=== PATIENT | male | born 1960 | race Caucasian/White ===

== ENCOUNTER 2017-06-03 17:56 | Emergency (ER) | payer MEDICARE ==
[2017-06-03 18:37] VITALS: BP 112/85
--- NOTE | 2017-06-03 18:40 | EDM.PDOC ---
ED HPI GENERAL MEDICAL PROBLEM - General Chief Complaint: Skin Complaint Stated Complaint: BOIL Time Seen by Provider: 06/03/17 18:40 Source of Information: Reports: Patient - History of Present Illness INITIAL COMMENTS - FREE TEXT/NARRATIVE: Patient is here for evaluation for a wound to his left buttock. He states this started approximately 3 days ago. He tried to drain it today and did get some thick red secretions. He states it is painful when he sits down. He has not had fever or chills. Patient is diabetic, has not been taking his medications intentionally. He states his glucose readings have been between 120 and 180. He denies any history of clotting or clotting disorder. He is not immunocompromise. Left Hip Pain Score (Numeric/FACES): 6 - Related Data Allergies Allergy/AdvReac Type Severity Reaction Status Date / Time No Known Allergies Allergy Verified 01/09/15 12:32 Home Meds: Home Meds Cyclobenzaprine [Flexeril] 10 mg PO ASDIRECTED PRN 01/09/15 [History] DULoxetine HCl [Duloxetine HCl] 60 mg PO DAILY 01/09/15 [History] Hydrocodone/Acetaminophen [Lorcet 5-325 mg Tablet] 1 tab PO ASDIRECTED PRN 01/09 [History] Cephalexin [Keflex] 500 mg PO Q6HR #28 cap 06/03/17 [Rx] Cephalexin [Keflex] 500 mg PO Q6HR #30 cap 06/03/17 [Rx] Past Medical History Psychiatric History: Reports: Anxiety, Depression - Past Surgical History Other Musculoskeletal Surgeries/Procedures:: back surgery Social & Family History - Tobacco Use Smoking Status *Q: Current Every Day Smoker Years of Tobacco use: 30 Packs/Tins Daily: 1 - Caffeine Use Caffeine Use: Reports: Coffee, Energy Drinks, Soda, Tea - Recreational Drug Use Recreational Drug Use: No ED ROS GENERAL - Review of Systems Review Of Systems: See Below Constitutional: Denies: Fever, Chills Respiratory: Reports: No Symptoms Cardiovascular: Reports: No Symptoms Skin: Reports: Wound (Left buttock) Neurological: Reports: No Symptoms Psychiatric: Reports: No Symptoms ED EXAM, SKIN/RASH Exam: See Below Exam Limited By: No Limitations General Appearance: Alert, WD/WN, No Apparent Distress Respiratory/Chest: No Respiratory Distress, Lungs Clear, Normal Breath Sounds, Chest Non-Tender Cardiovascular: Regular Rate, Rhythm, No Murmur, No Rub Neurological: Alert, Oriented Psychiatric: Normal Affect, Normal Mood Location, Skin: Other (Abscess to left buttock. Eschar to central area proximally 0.5 cm and draining purulent drainage. Surrounding erythema and warmth, this area is very firm and approximately 10 cm in diameter.) Course - Vital Signs Last Recorded V/S: Last Vital Signs Temp 99.1 F 06/03/17 18:36 Pulse 88 06/03/17 18:36 Resp 20 06/03/17 18:36 BP 112/85 06/03/17 18:36 Pulse Ox 94 L 06/03/17 18:36 - Orders/Labs/Meds Orders: Active Orders 24 hr Category Date Time Status CULTURE WOUND [RM] Stat Lab 06/03/17 19:00 Received Meds: Medications Discontinued Medications Generic Name Dose Route Start Last Admin Trade Name Martin PRN Reason Stop Dose Admin Ceftriaxone Sodium 1 gm 06/03/17 18:52 06/03/17 19:09 Rocephin IM 06/03/17 18:53 1 gm ONETIME ONE Administration Lidocaine HCl Confirm 06/03/17 19:05 06/03/17 19:09 Xylocaine 1% Administered 06/03/17 19:06 10 ml Dose Administration 10 ml .ROUTE .STK-MED ONE - Re-Assessments/Exams Free Text/Narrative Re-Assessment/Exam: Abscess to left buttock. This is draining minimally. Abscess is still quite firm, I do not feel this is mostly fluid-filled but more inflammation. Do not think drainage indicated at this point. Patient received 1 g Rocephin IM and will be started on Keflex by mouth on an outpatient basis. I recommend that he take a probiotic to help with GI side effects. He will apply hot compresses to this frequently to encourage drainage. He will follow-up with PCP on Monday or certainly return to the ER if needed. 06/03/17 19:43 Departure - Departure Time of Disposition: 19:33 Disposition: Home, Self-Care 01 Condition: Good Clinical Impression: Abscess - Discharge Information Prescriptions: Cephalexin [Keflex] 500 mg PO Q6HR #28 cap Cephalexin [Keflex] 500 mg PO Q6HR #30 cap Instructions: Abscess Referrals: Nordeng-Coby,Olivia M, MD [Primary Care Provider] - Forms: ED Department Discharge Additional Instructions: Keep area clean and dry. Apply hot compresses every 1-2 hours to encourage drainage. Take full course of antibiotic, I recommend a probiotic such as Floragen or 2 low-sugar yogurts per day with this as well to help prevent antibiotic- associated diarrhea. Tylenol or ibuprofen as needed for pain. Follow-up with your PCP next week or certainly return to the emergency room if needed. - My Orders Last 24 Hours: My Active Orders 06/03/17 19:00 CULTURE WOUND [RM] Stat - Assessment/Plan Last 24 Hours: My Active Orders 06/03/17 19:00 CULTURE WOUND [RM] Stat
[2017-06-03] MEDS ORDERED: cefTRIAXone 1 GM Vial IM ONE (18:52)
[2017-06-03] MEDS ORDERED: Lidocaine 1% 10 ML MDV ONE (19:05)
== END 2017-06-03 19:49 | disposition home or self-care (01) ==
LOC: JD.ED 17:56
DX: L02.31 Cutaneous abscess of buttock (principal); F17.210 Nicotine dependence, cigarettes, uncomplicated
CPT/HCPCS: 87070; 87077; 87186; 96372; 99283; J0696

== ENCOUNTER 2019-06-03 17:12 | Emergency (ER) | payer MEDICARE ==
[2019-06-03 17:23] VITALS: BP 126/106; PULSE 79
[2019-06-03] MEDS ORDERED: Albuterol/Ipratropium 3.0-0.5 MG/3 ML Neb Soln NEB ONE (17:40)
--- NOTE | 2019-06-03 17:54 | EDM.PDOC ---
ED HPI GENERAL MEDICAL PROBLEM - General Chief Complaint: Respiratory Problem Stated Complaint: CHEST CONGESTION Time Seen by Provider: 06/03/19 17:22 Source of Information: Reports: Patient, RN Notes Reviewed - History of Present Illness INITIAL COMMENTS - FREE TEXT/NARRATIVE: 58 year old male comes in wheezing, coughing. He has been coughing and wheezing more than usual for the last week or so. Cough is occasionally productive of colored phlegm. No fever or chills. Scratchy throat, does not hurt to swallow. - Related Data Allergies Allergy/AdvReac Type Severity Reaction Status Date / Time No Known Allergies Allergy Verified 06/03/19 17:23 Home Meds: Home Meds DULoxetine HCl [Duloxetine HCl] 60 mg PO DAILY 01/09/15 [History] Levofloxacin [Levaquin] 500 mg PO DAILY #10 tablet 04/30/18 [Rx] Lisinopril 5 mg PO DAILY 04/30/18 [History] atorvaSTATin Calcium [Atorvastatin Calcium] 20 mg PO BEDTIME 04/30/18 [History] metFORMIN [Glucophage XR] 500 mg PO BIDMEALS 04/30/18 [History] Past Medical History HEENT History: Reports: Hard of Hearing Cardiovascular History: Reports: High Cholesterol Respiratory History: Reports: COPD Other Respiratory History: 1 ppd smoker (30+ years) Psychiatric History: Reports: Anxiety, Depression Endocrine/Metabolic History: Reports: Diabetes, Type II - Past Surgical History Other Musculoskeletal Surgeries/Procedures:: back surgery Social & Family History - Family History Family Medical History: Noncontributory - Tobacco Use Smoking Status *Q: Current Every Day Smoker Years of Tobacco use: 40 Packs/Tins Daily: 1 - Caffeine Use Caffeine Use: Reports: Coffee, Energy Drinks, Soda, Tea - Living Situation & Occupation Living situation: Reports: Occupation: Employed ED ROS GENERAL - Review of Systems Review Of Systems: See Below Constitutional: Denies: Fever, Chills HEENT: Reports: Sinus Problem (mild john. and drainage), Throat Pain Respiratory: Reports: Shortness of Breath, Wheezing, Cough, Sputum Cardiovascular: Denies: Chest Pain GI/Abdominal: Denies: Nausea, Vomiting Musculoskeletal: Denies: Shoulder Pain, Arm Pain Skin: Reports: No Symptoms. Denies: Rash Neurological: Reports: No Symptoms ED EXAM, GENERAL - Physical Exam Exam: See Below General Appearance: Alert, No Apparent Distress Eye Exam: Bilateral Eye: PERRL Throat/Mouth: Inflammation (mild) Neck: Supple, Other (no JVD) Respiratory/Chest: No Respiratory Distress, Lungs Clear, Normal Breath Sounds, Wheezing. No: Rales, Rhonchi Cardiovascular: Regular Rate, Rhythm GI/Abdominal: Soft, Non-Tender Back Exam: No: CVA Tenderness (L), CVA Tenderness (R) Extremities: No: Pedal Edema, Leg Pain, Redness Skin Exam: Warm, Dry, Normal Color Course - Vital Signs Last Recorded V/S: Last Vital Signs Temp 96.4 F 06/03/19 17:21 Pulse 79 06/03/19 17:21 Resp 16 06/03/19 17:21 BP 126/106 H 06/03/19 17:21 Pulse Ox 96 06/03/19 17:49 - Orders/Labs/Meds Meds: Medications Discontinued Medications Generic Name Dose Route Start Last Admin Trade Name Freq PRN Reason Stop Dose Admin Albuterol/Ipratropium 3 ml 06/03/19 17:40 06/03/19 17:49 Duoneb 3.0-0.5 Mg/3 Ml NEB 06/03/19 17:41 3 ml ONETIME ONE Administration Azithromycin 500 mg 06/03/19 18:41 06/03/19 18:49 Zithromax PO 06/03/19 18:42 500 mg ONETIME ONE Administration Departure - Departure Time of Disposition: 18:43 Disposition: Home, Self-Care 01 Condition: Fair Clinical Impression: Bronchitis, Dyspnea - Discharge Information Instructions: Acute Bronchitis, Adult Referrals: Olivia Paris MD [Primary Care Provider] - Forms: ED Department Discharge Additional Instructions: Z pack antibiotic as prescribed, try stop smoking. Continue rescue inhaler and other meds as prescribed. Vaporizer or steam as needed. Follow up with your regular medical provider if not much better within 5 to 7 days as expected.
[2019-06-03] MEDS ORDERED: Azithromycin 250 MG Tab PO ONE (18:41)
--- NOTE | 2019-06-04 09:24 | CR ---
Chest: Two views of the chest were obtained. Comparison: Prior chest x-ray of 04/30/18. Heart size and mediastinum are normal. Lungs are clear with no acute parenchymal change. Bony structures show nothing acute. Impression: 1. Nothing acute is appreciated on two-view chest x-ray. Diagnostic code #1 This report was dictated in [place] Standard Time
== END 2019-06-03 18:59 | disposition home or self-care (01) ==
LOC: JD.ED 17:12
DX: J40 Bronchitis, not specified as acute or chronic (principal); J44.9 Chronic obstructive pulmonary disease, unspecified; E11.9 Type 2 diabetes mellitus without complications; F32.9 Major depressive disorder, single episode, unspecified; F41.9 Anxiety disorder, unspecified; E78.00 Pure hypercholesterolemia, unspecified; F17.210 Nicotine dependence, cigarettes, uncomplicated; Z79.899 Other long term (current) drug therapy; Z79.84 Long term (current) use of oral hypoglycemic drugs
CPT/HCPCS: 71046; 94640; 99285; A9270; 99283; J7620-GY

== ENCOUNTER 2019-06-17 15:51 | Emergency (ER) | payer MEDICARE, OTHER ==
[2019-06-17 16:39] VITALS: BP 138/93; PULSE 76
[2019-06-17] MEDS ORDERED: Albuterol/Ipratropium 3.0-0.5 MG/3 ML Neb Soln NEB ONE (16:46)
[2019-06-17] MEDS ORDERED: methylPREDNISolone Sodium Succinate 125 MG/2 ML SDV IVPUSH ONE (16:46)
[2019-06-17] MEDS ORDERED: Sodium Chloride 0.9% 10 ML Syringe FLUSH PRN (16:46)
--- NOTE | 2019-06-17 16:51 | EDM.PDOC ---
ED HPI GENERAL MEDICAL PROBLEM - General Chief Complaint: Respiratory Problem Stated Complaint: HOARSENESS NOT BETTER Time Seen by Provider: 06/17/19 16:34 Source of Information: Reports: Patient History Limitations: Reports: No Limitations - History of Present Illness INITIAL COMMENTS - FREE TEXT/NARRATIVE: Patient's unfortunate 58-year-old male presents in respiratory Department today with complaint of cough and wheezing and sore throat. Patient reports symptoms started 4 weeks ago. The patient was seen here on 06/03/2019, at which time he received a nebulizer treatment was placed on Zithromax. Patient ports that he had mild improvement with the nebulized treatment and then he did not get any better and the symptoms have stayed the same or worsen sensory re-presented in the emergency department for evaluation. Patient does report that he gets mild improvement from his rescue inhaler at home ports he has also had an intermittent episodes of chest pain to the left anterior portion of his chest last episode of this was 2 weeks ago - Related Data Allergies Allergy/AdvReac Type Severity Reaction Status Date / Time No Known Allergies Allergy Verified 06/03/19 17:23 Home Meds: Home Meds DULoxetine HCl [Duloxetine HCl] 60 mg PO DAILY 01/09/15 [History] atorvaSTATin Calcium [Atorvastatin Calcium] 20 mg PO BEDTIME 04/30/18 [History] metFORMIN [Glucophage XR] 500 mg PO BIDMEALS 04/30/18 [History] Levofloxacin [Levaquin] 500 mg PO DAILY #7 tablet 06/17/19 [Rx] predniSONE [Prednisone] 50 mg PO DAILY #5 tablet 06/17/19 [Rx] Past Medical History HEENT History: Reports: Hard of Hearing Cardiovascular History: Reports: High Cholesterol Respiratory History: Reports: COPD Other Respiratory History: 1 ppd smoker (30+ years) Psychiatric History: Reports: Anxiety, Depression Endocrine/Metabolic History: Reports: Diabetes, Type II - Past Surgical History Other Musculoskeletal Surgeries/Procedures:: back surgery Social & Family History - Family History Family Medical History: Noncontributory - Tobacco Use Smoking Status *Q: Current Every Day Smoker Years of Tobacco use: 30 Packs/Tins Daily: 1 - Caffeine Use Caffeine Use: Reports: Coffee - Recreational Drug Use Recreational Drug Use: No - Living Situation & Occupation Living situation: Reports: Occupation: Employed ED ROS GENERAL - Review of Systems Review Of Systems: See Below Constitutional: Denies: Fever, Chills HEENT: Reports: Throat Pain Respiratory: Reports: Shortness of Breath, Cough, Sputum Cardiovascular: Reports: Chest Pain GI/Abdominal: Denies: Nausea, Vomiting ED EXAM, GENERAL - Physical Exam Exam: See Below Exam Limited By: No Limitations General Appearance: Alert, WD/WN, Mild Distress Ears: Normal External Exam, Normal Canal, Hearing Grossly Normal, Normal TMs Throat/Mouth: Other (Posterior pharynx moderate erythema or midline) Neck: Normal Inspection, Other (Anterior cervical chain lymphadenopathy 2+) Respiratory/Chest: No Respiratory Distress, Wheezing (Mild scattered end expiratory). No: Respiratory Distress Cardiovascular: Normal Peripheral Pulses, Regular Rate, Rhythm, No Edema, No Gallop, No JVD, No Murmur, No Rub GI/Abdominal: Normal Bowel Sounds, Soft, Non-Tender, No Organomegaly, No Distention, No Abnormal Bruit, No Mass Back Exam: Normal Inspection, Full Range of Motion, NT Extremities: Normal Inspection, Normal Range of Motion, Non-Tender, Normal Capillary Refill, No Pedal Edema Neurological: Alert Skin Exam: Warm, Dry, No Rash EKG INTERPRETATION EKG Date: 06/17/19 Time: 16:55 Rhythm: NSR [place]: Normal P-Wave: Present QRS: Normal ST-T: Normal QT: Normal Course - Vital Signs Last Recorded V/S: Last Vital Signs Temp 97.3 F 06/17/19 16:36 Pulse 76 06/17/19 16:36 Resp 16 06/17/19 16:36 BP 138/93 H 06/17/19 16:36 Pulse Ox 90 L 06/17/19 16:47 - Orders/Labs/Meds Orders: Active Orders 24 hr Category Date Time Status EKG Documentation Completion [RC] ASDIRECTED Care 06/17/19 16:46 Active RT Aerosol Therapy [RC] ASDIRECTED Care 06/17/19 16:47 Active Chest 2V [CR] Stat Exams 06/17/19 16:46 Taken Sodium Chloride 0.9% [Saline Flush] Med 06/17/19 16:46 Active 10 ml FLUSH ASDIRECTED PRN Saline Lock Insert [OM.PC] Stat Oth 06/17/19 16:46 Ordered EKG 12 Lead [EK] Stat Ther 06/17/19 16:45 Ordered Medication Orders Sodium Chloride (Saline Flush) 10 ml FLUSH ASDIRECTED PRN PRN Reason: Keep Vein Open Last Admin: 06/17/19 17:15 Dose: 10 ml Labs: Laboratory Tests 06/17/19 06/17/19 06/17/19 Range/Units 16:50 16:50 17:18 WBC 8.48 (4.23-9.07) K/mm3 RBC 4.49 L (4.63-6.08) M/mm3 Hgb 15.3 (13.7-17.5) gm/dl Hct 44.8 (40.1-51.0) % MCV 99.8 H (79.0-92.2) fl MCH 34.1 H (25.7-32.2) pg MCHC 34.2 (32.2-35.5) g/dl RDW Std Deviation 49.5 H (35.1-43.9) fL Plt Count 181 (163-337) K/mm3 MPV 10.0 (9.4-12.3) fl Neut % (Auto) 56.0 (34.0-67.9) % Lymph % (Auto) 32.7 (21.8-53.1) % [place] % (Auto) 8.5 (5.3-12.2) % Eos % (Auto) 1.9 (0.8-7.0) Baso % (Auto) 0.5 (0.1-1.2) % Neut # (Auto) 4.76 (1.78-5.38) K/mm3 Lymph # (Auto) 2.77 (1.32-3.57) K/mm3 [place] # (Auto) 0.72 (0.30-0.82) K/mm3 Eos # (Auto) 0.16 (0.04-0.54) K/mm3 Baso # (Auto) 0.04 (0.01-0.08) K/mm3 Sodium 142 (136-145) mEq/L Potassium 4.2 (3.5-5.1) mEq/L Chloride 105 (98-107) mEq/L Carbon Dioxide 28 (21-32) mEq/L Anion Gap 13.2 (5-15) BUN 13 (7-18) mg/dL Creatinine 1.1 (0.7-1.3) mg/dL Est Cr Clr Drug Dosing 71.41 mL/min Estimated GFR (MDRD) > 60 (>60) mL/min BUN/Creatinine Ratio 11.8 L (14-18) Glucose 199 H (74-106) mg/dL Calcium 8.9 (8.5-10.1) mg/dL Total Bilirubin 0.4 (0.2-1.0) mg/dL AST 20 (15-37) U/L ALT 47 (16-63) U/L Alkaline Phosphatase 86 (46-116) U/L Troponin I < 0.017 (0.00-0.056) ng/mL Total Protein 7.2 (6.4-8.2) g/dl Albumin 3.6 (3.4-5.0) g/dl Globulin 3.6 gm/dL Albumin/Globulin Ratio 1.0 (1-2) Urine Color Dark yellow (Yellow) Urine Appearance Cloudy H (Clear) Urine pH 7.0 (5.0-8.0) Ur Specific [place] > or = 1.030 (1.005-1.030) Urine Protein Negative (Negative) Urine Glucose (UA) 2+ H (Negative) Urine Ketones Negative (Negative) Urine Occult Blood Negative (Negative) Urine Nitrite Negative (Negative) Urine Bilirubin Negative (Negative) Urine Urobilinogen 0.2 (0.2-1.0) Ur Leukocyte Esterase Negative (Negative) Meds: Medications Generic Name Dose Route Start Last Admin Trade Name Freq PRN Reason Stop Dose Admin Sodium Chloride 10 ml 06/17/19 16:46 06/17/19 17:15 Saline Flush FLUSH 10 ml ASDIRECTED PRN Administration Keep Vein Open Discontinued Medications Generic Name Dose Route Start Last Admin Trade Name Freq PRN Reason Stop Dose Admin Albuterol/Ipratropium 6 ml 06/17/19 16:46 06/17/19 17:27 Duoneb 3.0-0.5 Mg/3 Ml NEB 06/17/19 16:47 6 ml ONETIME ONE Administration Methylprednisolone Sodium Succinate 125 mg 06/17/19 16:46 06/17/19 17:11 Solu-Medrol IVPUSH 06/17/19 16:47 125 mg ONETIME ONE Administration - Re-Assessments/Exams Free Text/Narrative Re-Assessment/Exam: 06/17/19 18:23 Chest x-ray interpreted by me NAD Free Text/Narrative Re-Assessment/Exam: 06/17/19 18:27 he reports symptoms have improved SPO2 95% on room air will discharge to home Departure - Departure Time of Disposition: 18:26 Disposition: Home, Self-Care 01 Clinical Impression: COPD exacerbation - Discharge Information Prescriptions: Levofloxacin [Levaquin] 500 mg PO DAILY #7 tablet predniSONE [Prednisone] 50 mg PO DAILY #5 tablet Instructions: Chronic Obstructive Pulmonary Disease Exacerbation Referrals: Olivia Paris MD [Primary Care Provider] - Forms: ED Department Discharge Additional Instructions: Home, rest, use your inhaler every 4 hours for 24 hours while awake then as needed, return as needed for worsening condition Sepsis Event Note - Evaluation Sepsis Screening Result: No Definite Risk - Focused Exam Vital Signs: Vital Signs Temp Pulse Resp BP Pulse Ox Pulse Ox 06/17/19 16:47 90 L 06/17/19 16:36 97.3 F 76 16 138/93 H 92 L Date Exam was Performed: 06/17/19 Time Exam was Performed: 18:23 - My Orders Last 24 Hours: My Active Orders 06/17/19 16:45 EKG 12 Lead [EK] Stat 06/17/19 16:46 EKG Documentation Completion [RC] ASDIRECTED Chest 2V [CR] Stat Sodium Chloride 0.9% [Saline Flush] 10 ml FLUSH ASDIRECTED PRN Saline Lock Insert [OM.PC] Stat 06/17/19 16:47 RT Aerosol Therapy [RC] ASDIRECTED - Assessment/Plan Last 24 Hours: My Active Orders 06/17/19 16:45 EKG 12 Lead [EK] Stat 06/17/19 16:46 EKG Documentation Completion [RC] ASDIRECTED Chest 2V [CR] Stat Sodium Chloride 0.9% [Saline Flush] 10 ml FLUSH ASDIRECTED PRN Saline Lock Insert [OM.PC] Stat 06/17/19 16:47 RT Aerosol Therapy [RC] ASDIRECTED
--- NOTE | 2019-06-18 07:24 | CR ---
Chest: Two views of the chest were obtained. Comparison: Prior chest x-ray of 06/03/19. Heart size and mediastinum are normal. Lungs are clear with no acute parenchymal change. Bony structures appear within normal limits for the patient's age. Impression: 1. Nothing acute is appreciated on two-view chest x-ray. Diagnostic code #1 This report was dictated in [place] Standard Time
== END 2019-06-17 18:37 | disposition home or self-care (01) ==
LOC: JD.ED 15:51
DX: J44.1 Chronic obstructive pulmonary disease with (acute) exacerbation (principal); I10 Essential (primary) hypertension; E11.9 Type 2 diabetes mellitus without complications; E78.00 Pure hypercholesterolemia, unspecified; F17.210 Nicotine dependence, cigarettes, uncomplicated; Z79.899 Other long term (current) drug therapy; Z79.84 Long term (current) use of oral hypoglycemic drugs
CPT/HCPCS: 36415; 71046; 80053; 81003; 84484; 85025; 87804; 93005; 94640; 96374; 99285; J2930; 93010; 99283; J7620-GY

== ENCOUNTER 2021-03-28 11:34 | Inpatient (IN) | payer MEDICARE, MEDICAID ==
[2021-03-28] MEDS ORDERED: Sodium Chloride 0.9% 10 ML Syringe FLUSH PRN (12:11)
[2021-03-28] MEDS ORDERED: HYDROmorphone 1 MG/ML Syringe IVPUSH ONE (12:16)
[2021-03-28] MEDS: Lactated Ringers 1,000 ML IV SCH ×2 (12:29→21:57)
[2021-03-28] MEDS ORDERED: Iopamidol 612 MG/ML 50 ML SDV IVPUSH ONE (12:45)
[2021-03-28] MEDS ORDERED: Sodium Chloride 0.9% 10 ML Syringe FLUSH ONE (12:45)
[2021-03-28] MEDS ORDERED: Iopamidol 612 MG/ML 100 ML Bottle IVPUSH ONE (12:45)
--- NOTE | 2021-03-28 13:57 | CT ---
CT chest Technique: Multiple axial sections were obtained from above the lung apices inferiorly through the lung bases. Intravenous contrast was utilized. Reconstructed coronal and sagittal images were obtained. Comparison: No prior chest CT is available, prior chest x-ray of 06/17/19 is available. Findings: Thoracic aorta shows mild atherosclerotic calcification. Ascending aorta is slightly aneurysmal with AP dimension of 4.2 cm. Descending aorta at the same level measures approximately 3.0 cm. Minimal atherosclerotic calcification is seen within the coronary arteries. Several lymph nodes are seen within the mediastinum which are felt to be within normal limits. No axillary adenopathy is seen. No pericardial thickening is seen. Lung window settings were reviewed. Nodule is identified within the right lung base measuring 9 mm. Slight dependent atelectasis is noted posteriorly. No acute parenchymal change is otherwise seen. Bone window settings were reviewed which show no acute osseous finding. Degenerative change is seen within the visualized lower cervical spine. Impression: 1. 9 mm nodule within the right lung base. Recommend follow-up noncontrast chest CT study in 6 months. This would occur in August or October 2021. 2. Slight aneurysmal dilatation of the ascending aorta at 4.2 cm. Descending aorta at this level measures 3.0 cm. 3. Other incidental findings as noted above. Diagnostic code #3 CT abdomen and pelvis Technique: Multiple axial sections were obtained from above the dome of the diaphragm inferiorly through the pubic symphysis. Intravenous contrast was utilized. No oral contrast has been given. Reconstructed coronal and sagittal images were obtained. Delayed images were obtained through the bladder. Comparison: No prior abdominal imaging is available. Findings: Liver shows diffuse fatty infiltration. Gallbladder contains no calcified gallstones. Spleen size is normal. Pancreas appears within normal limits. Adrenal glands show no nodule. Kidneys show symmetric contrast enhancement. Two small cysts are noted within the right kidney measuring 1.2 cm. Two left-sided cysts are noted within the left kidney with largest measuring 4.1 cm. Delayed images show contrast within the distal ureters and within the bladder. Abdominal aorta shows mild distal ectasia with AP dimension of 2.3 cm. Slight atherosclerotic calcification is seen within the abdominal aorta as well as within the iliac vessels. No retroperitoneal adenopathy or mesenteric abnormalities are seen. No pelvic mass or adenopathy is seen. No free fluid or inflammatory change is seen. Appendix is not definitely visualized. Bone window settings were obtained which show scoliosis within the lumbar spine. Disc space narrowing is seen at L3-4 and L4-5 with vacuum phenomena. Acute fracture appears to be present within the left hip which is intertrochanteric and shows mild impaction. Impression: 1. Left hip fracture showing mild impaction which is intertrochanteric in location. 2. Other findings as noted above which are felt to be incidental. Diagnostic code #5
--- NOTE | 2021-03-28 14:06 | CT ---
CT lumbar spine Technique: Multiple axial sections were obtained from above the T11-12 disc through the L5-S1 disc. Reconstructed coronal and sagittal images were obtained. Comparison: Prior lumbar spine plain film study of 09/05/11. Findings: T11-12: Posterior disc is maintained. No central canal stenosis or neural foraminal stenosis is seen. T12-L1: Posterior disc is maintained. No central canal stenosis or neural foraminal stenosis is seen. L1-2: Slight circumferential disc bulge is seen. Mild degenerative change is noted within the apophyseal joint. No central canal stenosis is seen. Disc bulging is seen into the right neural foramen causing mild right-sided neural foraminal stenosis. Left neural foramen is patent. L2-3: Disc height is minimally narrowed. Circumferential disc bulge is seen. Mild central canal stenosis is noted. Minimal degenerative apophyseal change is seen. Disc bulging is noted into both inferior neural foramina which cause bilateral neural foraminal stenosis. L3-4: Severe disc space narrowing is noted with vacuum disc phenomena. Circumferential disc bulge is seen. Mild central canal stenosis is seen. Disc bulging is noted into both neural foramina causing severe left-sided neural foraminal stenosis and mild right-sided neural foraminal stenosis. L4-5: Severe disc space narrowing is noted with circumferential disc bulge. Moderate degenerative apophyseal change is noted with spurring seen which extends into the central canal. Moderate central canal stenosis is noted. Degenerative spurring and disc bulging is noted into both inferior neural foramina causing bilateral neural foraminal stenosis. L5-S1: Fairly severe degenerative apophyseal change is noted. Slight posterior disc space narrowing is noted. Posterior disc shows a physiological disc bulge. No central canal stenosis or discrete neural foraminal stenosis is seen. No acute fracture is seen. No abnormal subluxation is noted. Impression: 1. Prominent degenerative change as noted above. 2. No acute fracture or subluxation is seen. 3. MRI study could be considered to further evaluate the degenerative change as noted above. Diagnostic code #3
--- NOTE | 2021-03-28 14:07 | CR ---
Left tibia and fibula: AP and lateral views of the left tibia and fibula were obtained. Comparison: No prior tibia or fibula exam is available. Moderate joint space narrowing is seen within the medial left knee. Ankle joint appears within normal limits as seen. No acute fracture or other abnormality is appreciated. Impression: 1. Degenerative change within the left knee. 2. Nothing acute is appreciated on left tibia and fibula study. Diagnostic code #2
--- NOTE | 2021-03-28 14:07 | CR ---
Left femur: AP and lateral views of the left femur were obtained. Comparison: No prior left femur study, prior CT abdomen and pelvis exam performed on the same day. Comminuted intertrochanteric fracture is seen within the left hip with slight impaction. Moderate disc space narrowing is noted within the medial compartment of the left knee. No additional femur abnormality is appreciated. Impression: 1. Comminuted intertrochanteric fracture with slight impaction. 2. Joint space narrowing seen within the medial joint compartment. Diagnostic code #3
[2021-03-28] MEDS ORDERED: HYDROmorphone 0.5 MG/0.5 ML Syringe IVPUSH ONE (14:10)
--- NOTE | 2021-03-28 14:33 | EDM.PDOC ---
ED HPI GENERAL MEDICAL PROBLEM - General Chief Complaint: Lower Extremity Injury/Pain Stated Complaint: LEG INJURY Time Seen by Provider: 03/28/21 11:56 Source of Information: Reports: Patient History Limitations: Reports: No Limitations - History of Present Illness INITIAL COMMENTS - FREE TEXT/NARRATIVE: The patient presents after a fall from a grain bin. He thinks he fell over 5 feet and landed on his left hip. He did not hit his head or hurt his neck. He could not get up because of the pain. He has pain to the left low back, abdomen, left hip and left lower leg. He takes an aspirin per day. He has high cholesterol and diabetes. He does smoke. Onset: Sudden Duration: Minutes: Location: Reports: Back, Lower Extremity, Left (hip and low leg) Quality: Reports: Sharp Severity: Severe Improves with: Reports: Immobilization Worsens with: Reports: Movement Context: Reports: Trauma Associated Symptoms: Reports: No Other Symptoms Left Leg Pain Score (Numeric/FACES): 10 - Related Data Allergies Allergy/AdvReac Type Severity Reaction Status Date / Time No Known Allergies Allergy Verified 03/28/21 11:55 Home Meds: Home Meds DULoxetine HCl [Duloxetine HCl] 60 mg PO DAILY 01/09/15 [History] atorvaSTATin Calcium [Atorvastatin Calcium] 20 mg PO BEDTIME 04/30/18 [History] metFORMIN [Glucophage XR] 500 mg PO BIDMEALS 04/30/18 [History] predniSONE [Prednisone] 50 mg PO DAILY #5 tablet 06/17/19 [Rx] Aspirin 32 mg PO DAILY 03/28/21 [History] Past Medical History HEENT History: Reports: Hard of Hearing, Other (See Below) Other HEENT History: sinus surgery Cardiovascular History: Reports: High Cholesterol Respiratory History: Reports: COPD Other Respiratory History: 1 ppd smoker (30+ years) Psychiatric History: Reports: Anxiety, Depression Endocrine/Metabolic History: Reports: Diabetes, Type II - Past Surgical History GI Surgical History: Reports: Appendectomy Other Musculoskeletal Surgeries/Procedures:: back surgery Social & Family History - Family History Family Medical History: No Pertinent Family History - Tobacco Use Tobacco Use Status *Q: Current Every Day Tobacco User Years of Tobacco use: 20 Packs/Tins Daily: 1 - Caffeine Use Caffeine Use: Reports: Coffee, Soda - Recreational Drug Use Recreational Drug Use: No - Living Situation & Occupation Living situation: Reports: Occupation: Employed Review of Systems - Review of Systems Review Of Systems: See Below Constitutional: Reports: No Symptoms Eyes: Reports: No Symptoms Ears: Reports: No Symptoms Nose: Reports: No Symptoms Mouth/Throat: Reports: No Symptoms Respiratory: Reports: No Symptoms Cardiovascular: Reports: No Symptoms GI/Abdominal: Reports: No Symptoms Genitourinary: Reports: No Symptoms Musculoskeletal: Reports: Other (Left hip and left low leg) Neurological: Denies: Headache ED EXAM, GENERAL - Physical Exam Exam: See Below Exam Limited By: No Limitations General Appearance: Alert, No Apparent Distress Ears: Normal External Exam Nose: Normal Inspection Head: Atraumatic, Normocephalic Neck: Normal Inspection Respiratory/Chest: No Respiratory Distress, Lungs Clear, Normal Breath Sounds Cardiovascular: Regular Rate, Rhythm, No Edema, No Murmur GI/Abdominal: Soft, No Organomegaly, No Mass, Tender (Mild lower abdominal tenderness) Back Exam: Other (pain upon palpation to the left lower back and mid back) Extremities: Other (Pain upon palpation to the left hip and left ankle and lower leg) Neurological: Alert, Oriented, No Motor/Sensory Deficits Course - Vital Signs Last Recorded V/S: Last Vital Signs Temp 98.8 F 03/28/21 11:54 Pulse 86 03/28/21 11:54 Resp 18 03/28/21 11:54 BP 144/84 H 03/28/21 11:54 Pulse Ox 96 03/28/21 11:54 - Orders/Labs/Meds Orders: Active Orders 24 hr Category Date Time Status Cardiac Monitoring [RC] . DIRECTED Care 03/28/21 12:11 Active EKG Documentation Completion [RC] ASDIRECTED Care 03/28/21 16:06 Ordered Peripheral IV Care [RC] . DIRECTED Care 03/28/21 12:12 Active Lactated Ringers [Ringers, Lactated] 1,000 ml Med 03/28/21 12:15 Active IV ASDIRECTED Sodium Chloride 0.9% [Saline Flush] Med 03/28/21 12:11 Active 10 ml FLUSH ASDIRECTED PRN Peripheral IV Insertion Adult [OM.PC] Stat Oth 03/28/21 12:11 Ordered EKG 12 Lead [EK] Stat Ther 03/28/21 16:05 Ordered Medication Orders Lactated Ringer's (Ringers, Lactated) 1,000 mls @ 125 mls/hr IV ASDIRECTED [place] Last Admin: 03/28/21 12:29 Dose: 125 mls/hr Documented by: KAILA Sodium Chloride (Sodium Chloride 0.9% 10 Ml Syringe) 10 ml FLUSH ASDIRECTED PRN PRN Reason: Keep Vein Open Last Admin: 03/28/21 12:30 Dose: 10 ml Documented by: KAILA Labs: Laboratory Tests 03/28/21 03/28/21 03/28/21 Range/Units 12:00 12:00 12:01 WBC 20.88 H (4.23-9.07) K/mm3 RBC 4.44 L (4.63-6.08) M/mm3 Hgb 14.9 (13.7-17.5) gm/dl Hct 44.6 (40.1-51.0) % MCV 100.5 H (79.0-92.2) fl MCH 33.6 H (25.7-32.2) pg MCHC 33.4 (32.2-35.5) g/dl RDW Std Deviation 50.1 H (35.1-43.9) fL Plt Count 208 (163-337) K/mm3 MPV 10.1 (9.4-12.3) fl Neut % (Auto) 87.2 H (34.0-67.9) % Lymph % (Auto) 7.6 L (21.8-53.1) % [place] % (Auto) 4.7 L (5.3-12.2) % Eos % (Auto) 0.2 L (0.8-7.0) Baso % (Auto) 0.1 (0.1-1.2) % Neut # (Auto) 18.18 H (1.78-5.38) K/mm3 Lymph # (Auto) 1.59 (1.32-3.57) K/mm3 [place] # (Auto) 0.98 H (0.30-0.82) K/mm3 Eos # (Auto) 0.05 (0.04-0.54) K/mm3 Baso # (Auto) 0.03 (0.01-0.08) K/mm3 Sodium 139 (136-145) mEq/L Potassium 4.5 (3.5-5.1) mEq/L Chloride 104 (98-107) mEq/L Carbon Dioxide 25 (21-32) mEq/L Anion Gap 14.5 (5-15) BUN 17 (7-18) mg/dL Creatinine 1.2 (0.7-1.3) mg/dL Est Cr Clr Drug Dosing 63.83 mL/min Estimated GFR (MDRD) > 60 (>60) mL/min BUN/Creatinine Ratio 14.2 (14-18) Glucose 258 H (70-99) mg/dL Calcium 8.3 L (8.5-10.1) mg/dL Total Bilirubin 0.5 (0.2-1.0) mg/dL AST 42 H (15-37) U/L ALT 54 (16-63) U/L Alkaline Phosphatase 90 (46-116) U/L Total Protein 6.9 (6.4-8.2) g/dl Albumin 3.6 (3.4-5.0) g/dl Globulin 3.3 gm/dL Albumin/Globulin Ratio 1.1 (1-2) Amylase 39 (25-115) U/L SARS-CoV-2 RNA (MOUNIKA) Negative (NEGATIVE) Meds: Medications Generic Name Dose Route Start Last Admin Trade Name Martin PRN Reason Stop Dose Admin Lactated Ringer's 1,000 mls @ 125 mls/hr 03/28/21 12:15 03/28/21 12:29 Ringers, Lactated IV 125 mls/hr ASDIRECTED [place] Administration Sodium Chloride 10 ml 03/28/21 12:11 03/28/21 12:30 Sodium Chloride 0.9% 10 Ml Syringe FLUSH 10 ml ASDIRECTED PRN Administration Keep Vein Open Discontinued Medications Generic Name Dose Route Start Last Admin Trade Name Freq PRN Reason Stop Dose Admin Fentanyl 50 mcg 03/28/21 15:12 03/28/21 15:22 Fentanyl 100 Mcg/2 Ml Sdv IVPUSH 03/28/21 15:13 50 mcg ONETIME ONE Administration Hydromorphone HCl 1 mg 03/28/21 12:16 03/28/21 12:29 Hydromorphone 1 Mg/Ml Syringe IVPUSH 03/28/21 12:17 1 mg ONETIME ONE Administration Hydromorphone HCl 0.5 mg 03/28/21 14:10 03/28/21 14:00 Hydromorphone 0.5 Mg/0.5 Ml Syringe IVPUSH 03/28/21 14:11 0.5 mg ONETIME ONE Administration Iopamidol 100 ml 03/28/21 12:45 03/28/21 13:36 Iopamidol 612 Mg/Ml 100 Ml Bottle IVPUSH 03/28/21 12:46 100 ml ONETIME ONE Administration Iopamidol 50 ml 03/28/21 12:45 03/28/21 13:36 Iopamidol 612 Mg/Ml 50 Ml Sdv IVPUSH 03/28/21 12:46 25 ml ONETIME ONE Administration Sodium Chloride 10 ml 03/28/21 12:45 03/28/21 13:36 Sodium Chloride 0.9% 10 Ml Syringe FLUSH 03/28/21 12:46 10 ml ONETIME ONE Administration - Re-Assessments/Exams Free Text/Narrative Re-Assessment/Exam: 03/28/21 15:34 A trauma alert was called. I ordered an IV LR at 125mL/hr, dilaudid 1mg IV, CT of his chest, lumbar spine, abdomen and pelvis, labs and an x-ray of his left hip and left Tib/fib. 03/28/21 15:[address] of his lumbar spine shows prominent degenerative change. No acute fracture or subluxation is seen. MRI study could be considered to further evaluate the degenerative change. The CT of his chest shows 9mm nodule within the right lung base. Recommend follow-up noncontrast chest CT study in 6 months. This would occur in August or October. Slight aneurysmal dilatation of the ascending aorta at 4.2cm. Descending aorta at this level measures 3cm. Other incidental findings. The CT of his pelvis shows left hip fracture showing mild impaction which is intertrochanteric in location. Other findings felt to be incidental. The x-ray of his Tib/fib shows degenerative change within the left knee. Nothing acute is appreciated on left tibia and fibula study. The x- ray of his left femur shows a comminuted intertrochanteric fracture with slight impaction. Joint space narrowing seen within the medial joint compartment. 03/28/21 16:[address] Herrera and he asked if the hospitalist service would admit him and he would fix the hip tomorrow. I talked with Dr Pires and he agreed to the admission. Departure - Departure Time of Disposition: 16:15 Disposition: Admitted As Inpatient 64 Clinical Impression: Ascending aortic aneurysm, Pulmonary nodule Fall Qualifiers: Encounter type: initial encounter Qualified Code(s): W19.XXXA - Unspecified fall, initial encounter Hip fracture, left Qualifiers: Encounter type: initial encounter Fracture type: closed Qualified Code(s): S72.002A - Fracture of unspecified part of neck of left femur, initial encounter for closed fracture - Discharge Information Referrals: PCP,None [Primary Care Provider] - Forms: ED Department Discharge Sepsis Event Note (ED) - Focused Exam Vital Signs: Vital Signs Temp Pulse Resp BP Pulse Ox 03/28/21 11:54 98.8 F 86 18 144/84 H 96 - My Orders Last 24 Hours: My Active Orders 03/28/21 12:11 Cardiac Monitoring [RC] . DIRECTED Sodium Chloride 0.9% [Saline Flush] 10 ml FLUSH ASDIRECTED PRN Peripheral IV Insertion Adult [OM.PC] Stat 03/28/21 12:12 Peripheral IV Care [RC] . DIRECTED 03/28/21 12:15 Lactated Ringers [Ringers, Lactated] 1,000 ml IV ASDIRECTED 03/28/21 16:05 EKG 12 Lead [EK] Stat 03/28/21 16:06 EKG Documentation Completion [RC] ASDIRECTED - Assessment/Plan Last 24 Hours: My Active Orders 03/28/21 12:11 Cardiac Monitoring [RC] . DIRECTED Sodium Chloride 0.9% [Saline Flush] 10 ml FLUSH ASDIRECTED PRN Peripheral IV Insertion Adult [OM.PC] Stat 03/28/21 12:12 Peripheral IV Care [RC] . DIRECTED 03/28/21 12:15 Lactated Ringers [Ringers, Lactated] 1,000 ml IV ASDIRECTED 03/28/21 16:05 EKG 12 Lead [EK] Stat 03/28/21 16:06 EKG Documentation Completion [RC] ASDIRECTED
[2021-03-28] MEDS ORDERED: fentaNYL 100 MCG/2 ML SDV IVPUSH ONE (15:12)
--- NOTE | 2021-03-28 16:17 | PCM.HP.2 ---
H&P History of Present Illness - General Date of Service: 03/28/21 Admit Problem/Dx: Left-sided intertrochanteric hip fracture secondary to mechanical fall Source of Information: Patient History Limitations: Reports: No Limitations - History of Present Illness Initial Comments - Free Text/Narative: The patient is a 60-year-old gentleman who had presented to the emergency department after he had sustained a fall from a grain bin. The patient had fallen 5 feet and landed on his left hip. The patient reportedly did not have injury to his head or neck. The patient said that he was unable to get up after the fall. He is reported severe pain in the left hip and left lower leg. The patient has several comorbidities to include medication for diabetes mellitus type 2, hypertension, dyslipidemia and depression with anxiety. The patient has denied any dizziness or lightheadedness. He said it was a mechanical fall. The patient uses tobacco and would like to have a nicotine patch. The patient lives by himself. Onset of Symptoms: Reports: Sudden Duration of Symptoms: Reports: Hour(s): Location: Reports: Lower Extremity, Left Quality: Reports: Sharp, Stabbing Severity: Moderate Improves with: Reports: Immobilization, Medication Worsens with: Reports: Movement Context: Reports: Trauma Associated Symptoms: Reports: No Other Symptoms Left Leg Pain Score (Numeric/FACES): 10 - Related Data Allergies/Adverse Reactions: Allergies Allergy/AdvReac Type Severity Reaction Status Date / Time No Known Allergies Allergy Verified 03/28/21 11:55 Home Medications: Home Meds DULoxetine HCl [Duloxetine HCl] 60 mg PO DAILY 01/09/15 [History] atorvaSTATin Calcium [Atorvastatin Calcium] 20 mg PO BEDTIME 04/30/18 [History] metFORMIN [Glucophage XR] 500 mg PO BIDMEALS 04/30/18 [History] predniSONE [Prednisone] 50 mg PO DAILY #5 tablet 06/17/19 [Rx] Aspirin 32 mg PO DAILY 03/28/21 [History] Past Medical History HEENT History: Reports: Hard of Hearing, Other (See Below) Other HEENT History: sinus surgery Cardiovascular History: Reports: High Cholesterol Respiratory History: Reports: COPD Other Respiratory History: 1 ppd smoker (30+ years) Gastrointestinal History: Reports: None Genitourinary History: Reports: None Musculoskeletal History: Reports: None Neurological History: Reports: None Psychiatric History: Reports: Anxiety, Depression Endocrine/Metabolic History: Reports: Diabetes, Type II Hematologic History: Reports: None Immunologic History: Reports: None - Past Surgical History GI Surgical History: Reports: Appendectomy Other Musculoskeletal Surgeries/Procedures:: back surgery Social & Family History - Family History Family Medical History: No Pertinent Family History - Tobacco Use Tobacco Use Status *Q: Current Every Day Tobacco User Years of Tobacco use: 20 Packs/Tins Daily: 1 - Caffeine Use Caffeine Use: Reports: Coffee, Soda - Recreational Drug Use Recreational Drug Use: No - Living Situation & Occupation Living situation: Reports: Occupation: Employed H&P Review of Systems - Review of Systems: Review Of Systems: See Below General: Reports: No Symptoms HEENT: Reports: Hearing Changes Pulmonary: Reports: Cough Cardiovascular: Reports: No Symptoms Gastrointestinal: Reports: No Symptoms Genitourinary: Reports: No Symptoms Musculoskeletal: Reports: Leg Pain Skin: Reports: No Symptoms Psychiatric: Reports: No Symptoms Neurological: Reports: No Symptoms Hematologic/Lymphatic: Reports: No Symptoms Immunologic: Reports: No Symptoms Exam - Exam Exam: See Below - Vital Signs Vital Signs: Last Vital Signs Temp 37.1 C 03/28/21 11:54 Pulse 86 03/28/21 11:54 Resp 18 03/28/21 11:54 BP 144/84 H 03/28/21 11:54 Pulse Ox 96 03/28/21 11:54 Weight: 111.13 kg - Exam Quality Assessment: Supplemental Oxygen, DVT Prophylaxis General: Alert, Oriented, Cooperative, Moderate Distress HEENT: Conjunctiva Clear, EACs Clear, EOMI, Hearing Intact, Pupils Equal, PERRLA. No: Mucosa Moist & [place] (Dry, edentulous) Neck: Supple, Trachea Midline Lungs: Normal Respiratory Effort, Crackles, Wheezing (Widespread crackles and wheezing.) Cardiovascular: Regular Rate, Regular Rhythm, Normal S1, Normal S2 GI/Abdominal Exam: Normal Bowel Sounds, Soft, Non-Tender, No Distention, Other (Obese) (Male) Exam: Deferred Rectal (Males) Exam: Deferred Back Exam: Normal Inspection, Full Range of Motion Extremities: No Pedal Edema, Normal Capillary Refill. No: Normal Inspection (Left lower extremity foreshortened and internally rotated), Normal Range of Motion Skin: Warm, Dry, Intact Neurological: Cranial Nerves Intact, Strength Equal Bilateral, Normal Speech, Normal Tone Neuro Extensive - Mental Status: Alert, Oriented x3 Psychiatric: Alert, Normal Affect - Patient Data Lab Results Last 24 hrs: Laboratory Results - last 24 hr 03/28/21 03/28/21 03/28/21 Range/Units 12:00 12:00 12:01 WBC 20.88 H (4.23-9.07) K/mm3 RBC 4.44 L (4.63-6.08) M/mm3 Hgb 14.9 (13.7-17.5) gm/dl Hct 44.6 (40.1-51.0) % MCV 100.5 H (79.0-92.2) fl MCH 33.6 H (25.7-32.2) pg MCHC 33.4 (32.2-35.5) g/dl RDW Std Deviation 50.1 H (35.1-43.9) fL Plt Count 208 (163-337) K/mm3 MPV 10.1 (9.4-12.3) fl Neut % (Auto) 87.2 H (34.0-67.9) % Lymph % (Auto) 7.6 L (21.8-53.1) % [place] % (Auto) 4.7 L (5.3-12.2) % Eos % (Auto) 0.2 L (0.8-7.0) Baso % (Auto) 0.1 (0.1-1.2) % Neut # (Auto) 18.18 H (1.78-5.38) K/mm3 Lymph # (Auto) 1.59 (1.32-3.57) K/mm3 [place] # (Auto) 0.98 H (0.30-0.82) K/mm3 Eos # (Auto) 0.05 (0.04-0.54) K/mm3 Baso # (Auto) 0.03 (0.01-0.08) K/mm3 Sodium 139 (136-145) mEq/L Potassium 4.5 (3.5-5.1) mEq/L Chloride 104 (98-107) mEq/L Carbon Dioxide 25 (21-32) mEq/L Anion Gap 14.5 (5-15) BUN 17 (7-18) mg/dL Creatinine 1.2 (0.7-1.3) mg/dL Est Cr Clr Drug Dosing 63.83 mL/min Estimated GFR (MDRD) > 60 (>60) mL/min BUN/Creatinine Ratio 14.2 (14-18) Glucose 258 H (70-99) mg/dL Calcium 8.3 L (8.5-10.1) mg/dL Total Bilirubin 0.5 (0.2-1.0) mg/dL AST 42 H (15-37) U/L ALT 54 (16-63) U/L Alkaline Phosphatase 90 (46-116) U/L Total Protein 6.9 (6.4-8.2) g/dl Albumin 3.6 (3.4-5.0) g/dl Globulin 3.3 gm/dL Albumin/Globulin Ratio 1.1 (1-2) Amylase 39 (25-115) U/L SARS-CoV-2 RNA (MOUNIKA) Negative (NEGATIVE) Result Diagrams: 03/28/21 12:00 03/28/21 12:00 Sepsis Event Note - Focused Exam Vital Signs: Vital Signs Temp Pulse Resp BP Pulse Ox 03/28/21 11:54 37.1 C 86 18 144/84 H 96 - Problem List (1) Closed intertrochanteric fracture of left hip SNOMED Code(s): 85931441, 97602234153090765 ICD Code: S72.142A - DISPLACED INTERTROCHANTERIC FRACTURE OF LEFT FEMUR, INIT Status: Acute Current Visit: Yes Qualifiers: Encounter type: initial encounter Fracture alignment: displaced Qualified Code(s): S72.142A - Displaced intertrochanteric fracture of left femur, initial encounter for closed fracture (2) Thoracic ascending aortic aneurysm Status: Chronic Priority: Medium Current Visit: Yes (3) COPD (chronic obstructive pulmonary disease) SNOMED Code(s): 58585131 ICD Code: J44.9 - CHRONIC OBSTRUCTIVE PULMONARY DISEASE, UNSPECIFIED Status: Chronic Priority: Medium Current Visit: Yes Qualifiers: COPD type: chronic bronchitis Chronic bronchitis type: unspecified Qualified Code(s): J42 - Unspecified chronic bronchitis (4) Dyslipidemia SNOMED Code(s): 973756430 ICD Code: E78.5 - HYPERLIPIDEMIA, UNSPECIFIED Status: Chronic Priority: High Current Visit: Yes (5) Hypertension SNOMED Code(s): 63953224 ICD Code: I10 - ESSENTIAL (PRIMARY) HYPERTENSION Status: Chronic Priority: High Current Visit: Yes Qualifiers: Hypertension type: primary hypertension Qualified Code(s): I10 - Essential (primary) hypertension (6) Diabetes mellitus type 2 in obese SNOMED Code(s): 11852130 ICD Code: E11.69 - TYPE 2 DIABETES MELLITUS WITH OTHER SPECIFIED COMPLICATION; E66.9 - OBESITY, UNSPECIFIED Status: Chronic Priority: High Current Visit: Yes (7) Tobacco dependency SNOMED Code(s): 00698665 ICD Code: F17.200 - NICOTINE DEPENDENCE, UNSPECIFIED, UNCOMPLICATED Status: Chronic Priority: High Current Visit: Yes Problem List Initiated/Reviewed/Updated: Yes Orders Last 24hrs: Active Orders 24 hr Category Date Time Status Cardiac Monitoring [RC] . DIRECTED Care 03/28/21 12:11 Active EKG Documentation Completion [RC] ASDIRECTED Care 03/28/21 16:06 Active Peripheral IV Care [RC] . DIRECTED Care 03/28/21 12:12 Active Lactated Ringers [Ringers, Lactated] 1,000 ml Med 03/28/21 12:15 Active IV ASDIRECTED Sodium Chloride 0.9% [Saline Flush] Med 03/28/21 12:11 Active 10 ml FLUSH ASDIRECTED PRN Peripheral IV Insertion Adult [OM.PC] Stat Oth 03/28/21 12:11 Ordered EKG 12 Lead [EK] Stat Ther 03/28/21 16:05 Ordered Medication Orders Lactated Ringer's (Ringers, Lactated) 1,000 mls @ 125 mls/hr IV ASDIRECTED [place] Last Admin: 03/28/21 12:29 Dose: 125 mls/hr Documented by: KAILA Sodium Chloride (Sodium Chloride 0.9% 10 Ml Syringe) 10 ml FLUSH ASDIRECTED PRN PRN Reason: Keep Vein Open Last Admin: 03/28/21 12:30 Dose: 10 ml Documented by: KAILA Assessment/Plan Comment:: The patient is a 60-year-old gentleman who was going to be admitted as an inpatient secondary to left intertrochanteric fracture hip. The patient reportedly had a mechanical fall. He does have a history of diabetes mellitus type 2 and he has been placed on insulin sliding scale at high dose. The patient will also be started on a clear liquid diet to be kept n.p.o. after midnight for possible surgery. The patient is a tobacco user and has been ordered to have nicotine patch 14 mg daily to help with nicotine addiction. He also has a COPD history which is not exacerbation and the patient's oxygen saturations will be monitored and kept around 92 to 93%. The patient will have his vital signs monitored and his antihypertensive medication will be adjusted as necessary. The patient will also have DVT prophylaxis with the use of heparin 5000 units subcutaneous every 8 hours. PT OT has also been ordered for the patient. The patient will likely need to have intensive rehabilitation after prospective surgery. 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 In accordance with the AHA/ACC guidelines the patient is considered to be at low risk for prospective surgery. - Mortality Measure Prognosis:: Good
[2021-03-28] MEDS ORDERED: Albuterol/Ipratropium 3.0-0.5 MG/3 ML Neb Soln NEB PRN (16:20)
[2021-03-28] MEDS ORDERED: Docusate Sodium 100 MG Cap PO PRN (16:20)
[2021-03-28] MEDS ORDERED: Acetaminophen 325 MG Tab PO PRN (16:20)
[2021-03-28] MEDS ORDERED: Ondansetron 4 MG Tab.DIS PO PRN (16:20)
[2021-03-28] MEDS ORDERED: Temazepam 15 MG Cap PO PRN (16:20)
[2021-03-28] MEDS ORDERED: Acetaminophen/oxyCODONE 325-5 MG Tab PO ONE (16:23)
[2021-03-28] MEDS: Nicotine 14 MG/24 Hr Patch TRDERM SCH (18:00)
[2021-03-28] MEDS: Heparin Sodium 5,000 Units/ML Vial SUBCUT SCH (18:00)
[2021-03-28] MEDS: Insulin Regular, Human 100 Units/ML 3 ML Vial SUBCUT SCH (18:25)
[2021-03-28] MEDS: oxyCODONE 5 MG Tab PO PRN (20:45)
[2021-03-28] MEDS: Morphine 2 MG/ML SYRINGE IVPUSH PRN ×2 (20:45→23:53)
[2021-03-29] MEDS: Morphine 2 MG/ML SYRINGE IVPUSH PRN ×4 (02:20→10:32)
[2021-03-29] MEDS: Lactated Ringers 1,000 ML IV SCH ×2 (06:06→17:25)
--- NOTE | 2021-03-29 07:50 | PCM.PREANE ---
Preanesthetic Assessment - Procedure Proposed Procedure: Left Gamma Nail - Anesthesia/Transfusion/Family Hx Anesthesia History: Prior Anesthesia Without Reaction Family History of Anesthesia Reaction: No Transfusion History: No Prior Transfusion(s) Intubation History: Unknown - Review of Systems General: No Symptoms Pulmonary: No Symptoms (Smoker: 1 ppd times 30 years. ETOH: Never COPD) Cardiovascular: No Symptoms (HTN, elevated cholesterol), Dyspnea on Exertion (patient states he takes his rescue inhaler approximatley 6 times/day with exertion.), Lightheadedness Gastrointestinal: No Symptoms (GERD-controlled.), Diarrhea Neurological: No Symptoms (History of back surgery: greater than 10 years ago.), Headache (migraines) Other: Reports: Easy Bruising, Diabetes (610 blood sugar = 187), Depression, Anxiety - Physical Assessment NPO Status Date: 03/28/21 NPO Status Time: 23:59 Vital Signs: Last Vital Signs Temp 36.8 C 03/29/21 04:54 Pulse 86 03/29/21 04:54 Resp 20 03/29/21 04:54 BP 151/85 H 03/29/21 04:54 Pulse Ox 95 03/29/21 04:54 Height: 1.75 m Weight: 114.94 kg ASA Class: 3 Mental Status: Alert & Oriented x3 Airway Class: Mallampati = 3 Dentition: Reports: Dentures (upper and lower) Thyro-Mental Finger Breadths: 3 Mouth Opening Finger Breadths: 3 ROM/Head Extension: Full Lungs: Clear to Auscultation, Normal Respiratory Effort Cardiovascular: Regular Rate, Regular Rhythm, No Murmurs - Lab Values: Laboratory Last Values WBC 11.51 K/mm3 (4.23-9.07) H 03/29/21 06:22 RBC 4.06 M/mm3 (4.63-6.08) L 03/29/21 06:22 Hgb 13.5 gm/dl (13.7-17.5) L 03/29/21 06:22 Hct 41.1 % (40.1-51.0) 03/29/21 06:22 MCV 101.2 fl (79.0-92.2) H 03/29/21 06:22 MCH 33.3 pg (25.7-32.2) H 03/29/21 06:22 MCHC 32.8 g/dl (32.2-35.5) 03/29/21 06:22 RDW Std Deviation 50.2 fL (35.1-43.9) H 03/29/21 06:22 Plt Count 166 K/mm3 (163-337) 03/29/21 06:22 MPV 9.7 fl (9.4-12.3) 03/29/21 06:22 Neut % (Auto) 69.1 % (34.0-67.9) H 03/29/21 06:22 Lymph % (Auto) 19.7 % (21.8-53.1) L 03/29/21 06:22 [place] % (Auto) 10.2 % (5.3-12.2) 03/29/21 06:22 Eos % (Auto) 0.6 (0.8-7.0) L 03/29/21 06:22 Baso % (Auto) 0.2 % (0.1-1.2) 03/29/21 06:22 Neut # (Auto) 7.96 K/mm3 (1.78-5.38) H 03/29/21 06:22 Lymph # (Auto) 2.27 K/mm3 (1.32-3.57) 03/29/21 06:22 [place] # (Auto) 1.17 K/mm3 (0.30-0.82) H 03/29/21 06:22 Eos # (Auto) 0.07 K/mm3 (0.04-0.54) 03/29/21 06:22 Baso # (Auto) 0.02 K/mm3 (0.01-0.08) 03/29/21 06:22 Sodium 141 mEq/L (136-145) 03/29/21 06:22 Potassium 4.1 mEq/L (3.5-5.1) 03/29/21 06:22 Chloride 104 mEq/L (98-107) 03/29/21 06:22 Carbon Dioxide 29 mEq/L (21-32) 03/29/21 06:22 Anion Gap 12.1 (5-15) 03/29/21 06:22 BUN 11 mg/dL (7-18) 03/29/21 06:22 Creatinine 0.9 mg/dL (0.7-1.3) 03/29/21 06:22 Est Cr Clr Drug Dosing 85.10 mL/min 03/29/21 06:22 Estimated GFR (MDRD) > 60 mL/min (>60) 03/29/21 06:22 BUN/Creatinine Ratio 12.2 (14-18) L 03/29/21 06:22 Glucose 185 mg/dL (70-99) H 03/29/21 06:22 POC Glucose 187 mg/dL (70-99) H 03/29/21 06:11 Calcium 8.5 mg/dL (8.5-10.1) 03/29/21 06:22 Magnesium 1.7 mg/dL (1.8-2.4) L 03/29/21 06:22 Total Bilirubin 1.0 mg/dL (0.2-1.0) 03/29/21 06:22 AST 34 U/L (15-37) 03/29/21 06:22 ALT 52 U/L (16-63) 03/29/21 06:22 Alkaline Phosphatase 88 U/L (46-116) 03/29/21 06:22 Total Protein 6.9 g/dl (6.4-8.2) 03/29/21 06:22 Albumin 3.5 g/dl (3.4-5.0) 03/29/21 06:22 Globulin 3.4 gm/dL 03/29/21 06:22 Albumin/Globulin Ratio 1.0 (1-2) 03/29/21 06:22 Amylase 39 U/L (25-115) 03/28/21 12:00 SARS-CoV-2 RNA (MOUNIKA) Negative (NEGATIVE) 03/28/21 12:01 MRSA (PCR) Negative 03/29/21 02:20 Above labs reviewed and noted and within acceptable ranges to proceed with scheduled procedure. 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 Chest CT: 9mm nodule right lung base, slight dilatation of ascending aorta 4.2cm. - Allergies Allergies/Adverse Reactions: Allergies Allergy/AdvReac Type Severity Reaction Status Date / Time No Known Allergies Allergy Verified 03/28/21 17:06 - Anesthesia Plan Pre-Op Medication Ordered: None, Other (Oral Tylenol and oral oxycodone prior to surgery) - Acknowledgements Anesthesia Type Planned: General Anesthesia, Spinal Pt an Appropriate Candidate for the Planned Anesthesia: Yes Alternatives and Risks of Anesthesia Discussed w Pt/Guardian: Yes Pt/Guardian Understands and Agrees with Anesthesia Plan: Yes PreAnesthesia Questionnaire HEENT History: Reports: Hard of Hearing, Other (See Below) Other HEENT History: wears dentures; tinnitus Cardiovascular History: Reports: High Cholesterol Respiratory History: Reports: Bronchitis, Recurrent, Sleep Apnea, Other (See Below) Other Respiratory History: 1 ppd smoker (30+ years) Gastrointestinal History: Reports: GERD Genitourinary History: Reports: None Musculoskeletal History: Reports: None Neurological History: Reports: Other (See Below) Other Neuro History: patient does c/o some numbness and tingling to fingers at times Psychiatric History: Reports: Anxiety, Depression Endocrine/Metabolic History: Reports: Diabetes, Type II Hematologic History: Reports: None Immunologic History: Reports: None - Past Surgical History HEENT Surgical History: Reports: Other (See Below) Other HEENT Surgeries/Procedures: sinus surgery Cardiovascular Surgical History: Reports: None Respiratory Surgical History: Reports: None GI Surgical History: Reports: Appendectomy Neurological Surgical History: Reports: Other (See Below) Other Neurological Surgeries/Procedures: back surgery Musculoskeletal Surgical History: Reports: Other (See Below) Other Musculoskeletal Surgeries/Procedures:: back surgery - SUBSTANCE USE Tobacco Use Status *Q: Current Every Day Tobacco User Tobacco Use Within Last Twelve Months: Cigarettes Recreational Drug Use History: No - HOME MEDS Home Medications: Home Meds atorvaSTATin Calcium [Atorvastatin Calcium] 20 mg PO BEDTIME 04/30/18 [History] Acetaminophen 325 mg PO Q4H PRN 03/28/21 [History] Albuterol [Proventil HFA] 1 puff INH Q4H PRN 03/28/21 [History] Aspirin 325 mg PO DAILY 03/28/21 [History] Fluticasone Propionate [Flonase] 1 spray NASBOTH BID 03/28/21 [History] Glimepiride 4 mg PO BID 03/28/21 [History] Ipratropium [place] 2 spray NASBOTH TID 03/28/21 [History] Multivitamin 1 tab PO DAILY 03/28/21 [History] [place]-3 Fatty Acids [Maxepa] 1 cap PO DAILY 03/28/21 [History] Omeprazole 40 mg PO DAILY 03/28/21 [History] Silver Sulfadiazine [Silvadene 1% Cream 20 GM] 1 applic TOP DAILY PRN 03/28/21 [History] lisinopriL [Lisinopril] 5 mg PO DAILY 03/28/21 [History] metFORMIN HCl [Metformin HCl] 1,000 mg PO BIDMEALS 03/28/21 [History] - CURRENT (IN HOUSE) MEDS Current Meds: Current Medications Acetaminophen (Acetaminophen 325 Mg Tab) 650 mg PO Q4H PRN PRN Reason: Pain (Mild 1-3)/fever Albuterol/Ipratropium (Albuterol/Ipratropium 3.0-0.5 Mg/3 Ml Neb Soln) 3 ml NEB Q4H PRN PRN Reason: Shortness Of Breath/wheezing Cyclobenzaprine HCl (Cyclobenzaprine 10 Mg Tab) 10 mg PO Q8H PRN PRN Reason: Muscle Spasm - Painful Docusate Sodium (Docusate Sodium 100 Mg Cap) 100 mg PO BID PRN PRN Reason: Constipation Heparin Sodium (Porcine) (Heparin Sodium 5,000 Units/Ml Vial) 5,000 units SUBCUT Q8H [facility] Last Admin: 03/28/21 18:00 Dose: 5,000 units Documented by: Lactated Ringer's (Ringers, Lactated) 1,000 mls @ 125 mls/hr IV ASDIRECTED [facility] Last Admin: 03/29/21 06:06 Dose: 125 mls/hr Documented by: Insulin Human Regular (Insulin Regular, Human 100 Units/Ml 3 Ml Vial) 0 unit SUBCUT TIDPC [facility]; Protocol Last Admin: 03/28/21 18:25 Dose: 6 unit Documented by: Morphine Sulfate (Morphine 2 Mg/Ml Syringe) 2 mg IVPUSH Q2H PRN PRN Reason: Pain (severe 7-10) Stop: 03/29/21 16:20 Last Admin: 03/29/21 06:42 Dose: 2 mg Documented by: Nicotine (Nicotine 14 Mg/24 Hr Patch) 14 mg TRDERM DAILY [facility] Last Admin: 03/28/21 18:00 Dose: 14 mg Documented by: Ondansetron HCl (Ondansetron 4 Mg Tab.Dis) 4 mg PO Q4H PRN PRN Reason: nausea, able to take PO Oxycodone HCl (Oxycodone 5 Mg Tab) 5 mg PO Q4H PRN PRN Reason: Pain (moderate 4-6) Last Admin: 03/28/21 20:45 Dose: 5 mg Documented by: Sodium Chloride (Sodium Chloride 0.9% 10 Ml Syringe) 10 ml FLUSH ASDIRECTED PRN PRN Reason: Keep Vein Open Last Admin: 03/28/21 12:30 Dose: 10 ml Documented by: Temazepam (Temazepam 15 Mg Cap) 15 mg PO BEDTIME PRN PRN Reason: Sleep Last Admin: 03/28/21 23:53 Dose: 15 mg Documented by: Discontinued Medications Fentanyl (Fentanyl 100 Mcg/2 Ml Sdv) 50 mcg IVPUSH ONETIME ONE Stop: 03/28/21 15:13 Last Admin: 03/28/21 15:22 Dose: 50 mcg Documented by: Hydromorphone HCl (Hydromorphone 1 Mg/Ml Syringe) 1 mg IVPUSH ONETIME ONE Stop: 03/28/21 12:17 Last Admin: 03/28/21 12:29 Dose: 1 mg Documented by: Hydromorphone HCl (Hydromorphone 0.5 Mg/0.5 Ml Syringe) 0.5 mg IVPUSH ONETIME ONE Stop: 03/28/21 14:11 Last Admin: 03/28/21 14:00 Dose: 0.5 mg Documented by: Iopamidol (Iopamidol 612 Mg/Ml 100 Ml Bottle) 100 ml IVPUSH ONETIME ONE Stop: 03/28/21 12:46 Last Admin: 03/28/21 13:36 Dose: 100 ml Documented by: Iopamidol (Iopamidol 612 Mg/Ml 50 Ml Sdv) 50 ml IVPUSH ONETIME ONE Stop: 03/28/21 12:46 Last Admin: 03/28/21 13:36 Dose: 25 ml Documented by: Oxycodone/Acetaminophen (Acetaminophen/Oxycodone 325-5 Mg Tab) 2 tab PO ONETIME ONE Stop: 03/28/21 16:24 Last Admin: 03/28/21 16:32 Dose: 2 tab Documented by: Sodium Chloride (Sodium Chloride 0.9% 10 Ml Syringe) 10 ml FLUSH ONETIME ONE Stop: 03/28/21 12:46 Last Admin: 03/28/21 13:36 Dose: 10 ml Documented by:
--- NOTE | 2021-03-29 07:53 | PCM.PN ---
- General Info Date of Service: 03/29/21 Admission Dx/Problem (Free Text): Left-sided intertrochanteric hip fracture secondary to mechanical fall - Patient Data Vitals - Most Recent: Last Vital Signs Temp 98.2 F 03/29/21 04:54 Pulse 86 03/29/21 04:54 Resp 20 03/29/21 04:54 BP 151/85 H 03/29/21 04:54 Pulse Ox 95 03/29/21 04:54 Weight - Most Recent: 253 lb 6.4 oz I&O - Last 24 Hours: Intake & Output 03/28/21 03/29/21 03/29/21 22:59 06:59 14:59 Intake Total 640 1629 Output Total 1000 Balance 640 629 Lab Results Last 24 Hours: Laboratory Results - last 24 hr 03/28/21 03/28/21 03/28/21 Range/Units 12:00 12:00 12:01 WBC 20.88 H (4.23-9.07) K/mm3 RBC 4.44 L (4.63-6.08) M/mm3 Hgb 14.9 (13.7-17.5) gm/dl Hct 44.6 (40.1-51.0) % MCV 100.5 H (79.0-92.2) fl MCH 33.6 H (25.7-32.2) pg MCHC 33.4 (32.2-35.5) g/dl RDW Std Deviation 50.1 H (35.1-43.9) fL Plt Count 208 (163-337) K/mm3 MPV 10.1 (9.4-12.3) fl Neut % (Auto) 87.2 H (34.0-67.9) % Lymph % (Auto) 7.6 L (21.8-53.1) % [place] % (Auto) 4.7 L (5.3-12.2) % Eos % (Auto) 0.2 L (0.8-7.0) Baso % (Auto) 0.1 (0.1-1.2) % Neut # (Auto) 18.18 H (1.78-5.38) K/mm3 Lymph # (Auto) 1.59 (1.32-3.57) K/mm3 [place] # (Auto) 0.98 H (0.30-0.82) K/mm3 Eos # (Auto) 0.05 (0.04-0.54) K/mm3 Baso # (Auto) 0.03 (0.01-0.08) K/mm3 Sodium 139 (136-145) mEq/L Potassium 4.5 (3.5-5.1) mEq/L Chloride 104 (98-107) mEq/L Carbon Dioxide 25 (21-32) mEq/L Anion Gap 14.5 (5-15) BUN 17 (7-18) mg/dL Creatinine 1.2 (0.7-1.3) mg/dL Est Cr Clr Drug Dosing 63.83 mL/min Estimated GFR (MDRD) > 60 (>60) mL/min BUN/Creatinine Ratio 14.2 (14-18) Glucose 258 H (70-99) mg/dL POC Glucose (70-99) mg/dL Calcium 8.3 L (8.5-10.1) mg/dL Magnesium (1.8-2.4) mg/dL Total Bilirubin 0.5 (0.2-1.0) mg/dL AST 42 H (15-37) U/L ALT 54 (16-63) U/L Alkaline Phosphatase 90 (46-116) U/L Total Protein 6.9 (6.4-8.2) g/dl Albumin 3.6 (3.4-5.0) g/dl Globulin 3.3 gm/dL Albumin/Globulin Ratio 1.1 (1-2) Amylase 39 (25-115) U/L SARS-CoV-2 RNA (MOUNIKA) Negative (NEGATIVE) MRSA (PCR) 03/28/21 03/29/21 03/29/21 Range/Units 18:13 02:20 06:11 WBC (4.23-9.07) K/mm3 RBC (4.63-6.08) M/mm3 Hgb (13.7-17.5) gm/dl Hct (40.1-51.0) % MCV (79.0-92.2) fl MCH (25.7-32.2) pg MCHC (32.2-35.5) g/dl RDW Std Deviation (35.1-43.9) fL Plt Count (163-337) K/mm3 MPV (9.4-12.3) fl Neut % (Auto) (34.0-67.9) % Lymph % (Auto) (21.8-53.1) % [place] % (Auto) (5.3-12.2) % Eos % (Auto) (0.8-7.0) Baso % (Auto) (0.1-1.2) % Neut # (Auto) (1.78-5.38) K/mm3 Lymph # (Auto) (1.32-3.57) K/mm3 [place] # (Auto) (0.30-0.82) K/mm3 Eos # (Auto) (0.04-0.54) K/mm3 Baso # (Auto) (0.01-0.08) K/mm3 Sodium (136-145) mEq/L Potassium (3.5-5.1) mEq/L Chloride (98-107) mEq/L Carbon Dioxide (21-32) mEq/L Anion Gap (5-15) BUN (7-18) mg/dL Creatinine (0.7-1.3) mg/dL Est Cr Clr Drug Dosing mL/min Estimated GFR (MDRD) (>60) mL/min BUN/Creatinine Ratio (14-18) Glucose (70-99) mg/dL POC Glucose 207 H 187 H (70-99) mg/dL Calcium (8.5-10.1) mg/dL Magnesium (1.8-2.4) mg/dL Total Bilirubin (0.2-1.0) mg/dL AST (15-37) U/L ALT (16-63) U/L Alkaline Phosphatase (46-116) U/L Total Protein (6.4-8.2) g/dl Albumin (3.4-5.0) g/dl Globulin gm/dL Albumin/Globulin Ratio (1-2) Amylase (25-115) U/L SARS-CoV-2 RNA (MOUNIKA) (NEGATIVE) MRSA (PCR) Negative 03/29/21 03/29/21 Range/Units 06:22 06:22 WBC 11.51 H (4.23-9.07) K/mm3 RBC 4.06 L (4.63-6.08) M/mm3 Hgb 13.5 L (13.7-17.5) gm/dl Hct 41.1 (40.1-51.0) % MCV 101.2 H (79.0-92.2) fl MCH 33.3 H (25.7-32.2) pg MCHC 32.8 (32.2-35.5) g/dl RDW Std Deviation 50.2 H (35.1-43.9) fL Plt Count 166 (163-337) K/mm3 MPV 9.7 (9.4-12.3) fl Neut % (Auto) 69.1 H (34.0-67.9) % Lymph % (Auto) 19.7 L (21.8-53.1) % [place] % (Auto) 10.2 (5.3-12.2) % Eos % (Auto) 0.6 L (0.8-7.0) Baso % (Auto) 0.2 (0.1-1.2) % Neut # (Auto) 7.96 H (1.78-5.38) K/mm3 Lymph # (Auto) 2.27 (1.32-3.57) K/mm3 [place] # (Auto) 1.17 H (0.30-0.82) K/mm3 Eos # (Auto) 0.07 (0.04-0.54) K/mm3 Baso # (Auto) 0.02 (0.01-0.08) K/mm3 Sodium 141 (136-145) mEq/L Potassium 4.1 (3.5-5.1) mEq/L Chloride 104 (98-107) mEq/L Carbon Dioxide 29 (21-32) mEq/L Anion Gap 12.1 (5-15) BUN 11 (7-18) mg/dL Creatinine 0.9 (0.7-1.3) mg/dL Est Cr Clr Drug Dosing 85.10 mL/min Estimated GFR (MDRD) > 60 (>60) mL/min BUN/Creatinine Ratio 12.2 L (14-18) Glucose 185 H (70-99) mg/dL POC Glucose (70-99) mg/dL Calcium 8.5 (8.5-10.1) mg/dL Magnesium 1.7 L (1.8-2.4) mg/dL Total Bilirubin 1.0 (0.2-1.0) mg/dL AST 34 (15-37) U/L ALT 52 (16-63) U/L Alkaline Phosphatase 88 (46-116) U/L Total Protein 6.9 (6.4-8.2) g/dl Albumin 3.5 (3.4-5.0) g/dl Globulin 3.4 gm/dL Albumin/Globulin Ratio 1.0 (1-2) Amylase (25-115) U/L SARS-CoV-2 RNA (MOUNIKA) (NEGATIVE) MRSA (PCR) Med Orders - Current: Current Medications Acetaminophen (Acetaminophen 325 Mg Tab) 650 mg PO Q4H PRN PRN Reason: Pain (Mild 1-3)/fever Albuterol/Ipratropium (Albuterol/Ipratropium 3.0-0.5 Mg/3 Ml Neb Soln) 3 ml NEB Q4H PRN PRN Reason: Shortness Of Breath/wheezing Cyclobenzaprine HCl (Cyclobenzaprine 10 Mg Tab) 10 mg PO Q8H PRN PRN Reason: Muscle Spasm - Painful Docusate Sodium (Docusate Sodium 100 Mg Cap) 100 mg PO BID PRN PRN Reason: Constipation Heparin Sodium (Porcine) (Heparin Sodium 5,000 Units/Ml Vial) 5,000 units SUBC UT Q8H [facility] Last Admin: 03/28/21 18:00 Dose: 5,000 units Documented by: Lactated Ringer's (Ringers, Lactated) 1,000 mls @ 125 mls/hr IV ASDIRECTED [facility] Last Admin: 03/29/21 06:06 Dose: 125 mls/hr Documented by: Insulin Human Regular (Insulin Regular, Human 100 Units/Ml 3 Ml Vial) 0 unit SUBCUT TIDPC [facility]; Protocol Last Admin: 03/28/21 18:25 Dose: 6 unit Documented by: Morphine Sulfate (Morphine 2 Mg/Ml Syringe) 2 mg IVPUSH Q2H PRN PRN Reason: Pain (severe 7-10) Stop: 03/29/21 16:20 Last Admin: 03/29/21 06:42 Dose: 2 mg Documented by: Nicotine (Nicotine 14 Mg/24 Hr Patch) 14 mg TRDERM DAILY [facility] Last Admin: 03/28/21 18:00 Dose: 14 mg Documented by: Ondansetron HCl (Ondansetron 4 Mg Tab.Dis) 4 mg PO Q4H PRN PRN Reason: nausea, able to take PO Oxycodone HCl (Oxycodone 5 Mg Tab) 5 mg PO Q4H PRN PRN Reason: Pain (moderate 4-6) Last Admin: 03/28/21 20:45 Dose: 5 mg Documented by: Sodium Chloride (Sodium Chloride 0.9% 10 Ml Syringe) 10 ml FLUSH ASDIRECTED PRN PRN Reason: Keep Vein Open Last Admin: 03/28/21 12:30 Dose: 10 ml Documented by: Temazepam (Temazepam 15 Mg Cap) 15 mg PO BEDTIME PRN PRN Reason: Sleep Last Admin: 03/28/21 23:53 Dose: 15 mg Documented by: Discontinued Medications Fentanyl (Fentanyl 100 Mcg/2 Ml Sdv) 50 mcg IVPUSH ONETIME ONE Stop: 03/28/21 15:13 Last Admin: 03/28/21 15:22 Dose: 50 mcg Documented by: Hydromorphone HCl (Hydromorphone 1 Mg/Ml Syringe) 1 mg IVPUSH ONETIME ONE Stop: 03/28/21 12:17 Last Admin: 03/28/21 12:29 Dose: 1 mg Documented by: Hydromorphone HCl (Hydromorphone 0.5 Mg/0.5 Ml Syringe) 0.5 mg IVPUSH ONETIME ONE Stop: 03/28/21 14:11 Last Admin: 03/28/21 14:00 Dose: 0.5 mg Documented by: Iopamidol (Iopamidol 612 Mg/Ml 100 Ml Bottle) 100 ml IVPUSH ONETIME ONE Stop: 03/28/21 12:46 Last Admin: 03/28/21 13:36 Dose: 100 ml Documented by: Iopamidol (Iopamidol 612 Mg/Ml 50 Ml Sdv) 50 ml IVPUSH ONETIME ONE Stop: 03/28/21 12:46 Last Admin: 03/28/21 13:36 Dose: 25 ml Documented by: Oxycodone/Acetaminophen (Acetaminophen/Oxycodone 325-5 Mg Tab) 2 tab PO ONETIME ONE Stop: 03/28/21 16:24 Last Admin: 03/28/21 16:32 Dose: 2 tab Documented by: Sodium Chloride (Sodium Chloride 0.9% 10 Ml Syringe) 10 ml FLUSH ONETIME ONE Stop: 03/28/21 12:46 Last Admin: 03/28/21 13:36 Dose: 10 ml Documented by: - Patient Data Lab Results Last 24 hrs: Laboratory Results - last 24 hr 03/28/21 03/28/21 03/28/21 Range/Units 12:00 12:00 12:01 WBC 20.88 H (4.23-9.07) K/mm3 RBC 4.44 L (4.63-6.08) M/mm3 Hgb 14.9 (13.7-17.5) gm/dl Hct 44.6 (40.1-51.0) % MCV 100.5 H (79.0-92.2) fl MCH 33.6 H (25.7-32.2) pg MCHC 33.4 (32.2-35.5) g/dl RDW Std Deviation 50.1 H (35.1-43.9) fL Plt Count 208 (163-337) K/mm3 MPV 10.1 (9.4-12.3) fl Neut % (Auto) 87.2 H (34.0-67.9) % Lymph % (Auto) 7.6 L (21.8-53.1) % [place] % (Auto) 4.7 L (5.3-12.2) % Eos % (Auto) 0.2 L (0.8-7.0) Baso % (Auto) 0.1 (0.1-1.2) % Neut # (Auto) 18.18 H (1.78-5.38) K/mm3 Lymph # (Auto) 1.59 (1.32-3.57) K/mm3 [place] # (Auto) 0.98 H (0.30-0.82) K/mm3 Eos # (Auto) 0.05 (0.04-0.54) K/mm3 Baso # (Auto) 0.03 (0.01-0.08) K/mm3 Sodium 139 (136-145) mEq/L Potassium 4.5 (3.5-5.1) mEq/L Chloride 104 (98-107) mEq/L Carbon Dioxide 25 (21-32) mEq/L Anion Gap 14.5 (5-15) BUN 17 (7-18) mg/dL Creatinine 1.2 (0.7-1.3) mg/dL Est Cr Clr Drug Dosing 63.83 mL/min Estimated GFR (MDRD) > 60 (>60) mL/min BUN/Creatinine Ratio 14.2 (14-18) Glucose 258 H (70-99) mg/dL POC Glucose (70-99) mg/dL Calcium 8.3 L (8.5-10.1) mg/dL Magnesium (1.8-2.4) mg/dL Total Bilirubin 0.5 (0.2-1.0) mg/dL AST 42 H (15-37) U/L ALT 54 (16-63) U/L Alkaline Phosphatase 90 (46-116) U/L Total Protein 6.9 (6.4-8.2) g/dl Albumin 3.6 (3.4-5.0) g/dl Globulin 3.3 gm/dL Albumin/Globulin Ratio 1.1 (1-2) Amylase 39 (25-115) U/L SARS-CoV-2 RNA (MOUNIKA) Negative (NEGATIVE) MRSA (PCR) 03/28/21 03/29/21 03/29/21 Range/Units 18:13 02:20 06:11 WBC (4.23-9.07) K/mm3 RBC (4.63-6.08) M/mm3 Hgb (13.7-17.5) gm/dl Hct (40.1-51.0) % MCV (79.0-92.2) fl MCH (25.7-32.2) pg MCHC (32.2-35.5) g/dl RDW Std Deviation (35.1-43.9) fL Plt Count (163-337) K/mm3 MPV (9.4-12.3) fl Neut % (Auto) (34.0-67.9) % Lymph % (Auto) (21.8-53.1) % [place] % (Auto) (5.3-12.2) % Eos % (Auto) (0.8-7.0) Baso % (Auto) (0.1-1.2) % Neut # (Auto) (1.78-5.38) K/mm3 Lymph # (Auto) (1.32-3.57) K/mm3 [place] # (Auto) (0.30-0.82) K/mm3 Eos # (Auto) (0.04-0.54) K/mm3 Baso # (Auto) (0.01-0.08) K/mm3 Sodium (136-145) mEq/L Potassium (3.5-5.1) mEq/L Chloride (98-107) mEq/L Carbon Dioxide (21-32) mEq/L Anion Gap (5-15) BUN (7-18) mg/dL Creatinine (0.7-1.3) mg/dL Est Cr Clr Drug Dosing mL/min Estimated GFR (MDRD) (>60) mL/min BUN/Creatinine Ratio (14-18) Glucose (70-99) mg/dL POC Glucose 207 H 187 H (70-99) mg/dL Calcium (8.5-10.1) mg/dL Magnesium (1.8-2.4) mg/dL Total Bilirubin (0.2-1.0) mg/dL AST (15-37) U/L ALT (16-63) U/L Alkaline Phosphatase (46-116) U/L Total Protein (6.4-8.2) g/dl Albumin (3.4-5.0) g/dl Globulin gm/dL Albumin/Globulin Ratio (1-2) Amylase (25-115) U/L SARS-CoV-2 RNA ([facility]) (NEGATIVE) MRSA (PCR) Negative 03/29/21 03/29/21 Range/Units 06:22 06:22 WBC 11.51 H (4.23-9.07) K/mm3 RBC 4.06 L (4.63-6.08) M/mm3 Hgb 13.5 L (13.7-17.5) gm/dl Hct 41.1 (40.1-51.0) % MCV 101.2 H (79.0-92.2) fl MCH 33.3 H (25.7-32.2) pg MCHC 32.8 (32.2-35.5) g/dl RDW Std Deviation 50.2 H (35.1-43.9) fL Plt Count 166 (163-337) K/mm3 MPV 9.7 (9.4-12.3) fl Neut % (Auto) 69.1 H (34.0-67.9) % Lymph % (Auto) 19.7 L (21.8-53.1) % [place] % (Auto) 10.2 (5.3-12.2) % Eos % (Auto) 0.6 L (0.8-7.0) Baso % (Auto) 0.2 (0.1-1.2) % Neut # (Auto) 7.96 H (1.78-5.38) K/mm3 Lymph # (Auto) 2.27 (1.32-3.57) K/mm3 [place] # (Auto) 1.17 H (0.30-0.82) K/mm3 Eos # (Auto) 0.07 (0.04-0.54) K/mm3 Baso # (Auto) 0.02 (0.01-0.08) K/mm3 Sodium 141 (136-145) mEq/L Potassium 4.1 (3.5-5.1) mEq/L Chloride 104 (98-107) mEq/L Carbon Dioxide 29 (21-32) mEq/L Anion Gap 12.1 (5-15) BUN 11 (7-18) mg/dL Creatinine 0.9 (0.7-1.3) mg/dL Est Cr Clr Drug Dosing 85.10 mL/min Estimated GFR (MDRD) > 60 (>60) mL/min BUN/Creatinine Ratio 12.2 L (14-18) Glucose 185 H (70-99) mg/dL POC Glucose (70-99) mg/dL Calcium 8.5 (8.5-10.1) mg/dL Magnesium 1.7 L (1.8-2.4) mg/dL Total Bilirubin 1.0 (0.2-1.0) mg/dL AST 34 (15-37) U/L ALT 52 (16-63) U/L Alkaline Phosphatase 88 (46-116) U/L Total Protein 6.9 (6.4-8.2) g/dl Albumin 3.5 (3.4-5.0) g/dl Globulin 3.4 gm/dL Albumin/Globulin Ratio 1.0 (1-2) Amylase (25-115) U/L SARS-CoV-2 RNA (MOUNIKA) (NEGATIVE) MRSA (PCR) Result Diagrams: 03/29/21 06:22 03/29/21 06:22 Sepsis Event Note - Evaluation Sepsis Screening Result: No Definite Risk - Focused Exam Vital Signs: Vital Signs Temp Pulse Resp BP Pulse Ox 03/29/21 04:54 98.2 F 86 20 151/85 H 95 03/28/21 20:43 98.8 F 86 20 142/88 H 94 L - Plan Plan:: The patient is a 60-year-old gentleman who was going to be admitted as an inpatient secondary to left intertrochanteric fracture hip. The patient reportedly had a mechanical fall. He does have a history of diabetes mellitus type 2 and he has been placed on insulin sliding scale at high dose. The patient will also be started on a clear liquid diet to be kept n.p.o. after midnight for possible surgery. The patient is a tobacco user and has been ordered to have nicotine patch 14 mg daily to help with nicotine addiction. He also has a COPD history which is not exacerbation and the patient's oxygen saturations will be monitored and kept around 92 to 93%. The patient will have his vital signs monitored and his antihypertensive medication will be adjusted as necessary. The patient will also have DVT prophylaxis with the use of heparin 5000 units subcutaneous every 8 hours. PT OT has also been ordered for the patient. The patient will likely need to have intensive rehabilitation after prospective surgery. 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 In accordance with the AHA/ACC guidelines the patient is considered to be at low risk for prospective surgery.
[2021-03-29] MEDS: Insulin Regular, Human 100 Units/ML 3 ML Vial SUBCUT SCH ×4 (08:09→20:29)
[2021-03-29] MEDS: oxyCODONE 5 MG Tab PO PRN ×3 (08:21→20:31)
[2021-03-29] MEDS: Nicotine 14 MG/24 Hr Patch TRDERM SCH (08:27)
[2021-03-29] MEDS ORDERED: Magnesium Sulfate/Water 2 GM in Premix Bag 1 BAG IV ONE (09:00)
[2021-03-29] MEDS ORDERED: DULoxetine 30 MG Cap PO SCH (09:00)
[2021-03-29] MEDS ORDERED: Albuterol 6.7 GM Inhaler INH PRN (09:32)
--- NOTE | 2021-03-29 10:54 | PCM.PN ---
<Minerva Ceja E - Last Filed: 03/29/21 12:15> - General Info Date of Service: 03/29/21 Functional Status: Reports: Pain Controlled (mild pain with movement), Urinating (with beside urinal). Denies: Ambulating - Review of Systems General: Reports: No Symptoms. Denies: Fever, Weakness, Fatigue HEENT: Reports: No Symptoms Pulmonary: Reports: No Symptoms, Shortness of Breath (chronically). Denies: Pleuritic Chest Pain, Cough Cardiovascular: Reports: No Symptoms. Denies: Chest Pain, Palpitations, Dyspnea on Exertion, Edema Gastrointestinal: Reports: No Symptoms. Denies: Abdominal Pain, Constipation, Diarrhea, Nausea, Vomiting Genitourinary: Reports: No Symptoms. Denies: Pain Musculoskeletal: Reports: Leg Pain (left hip fracture) Skin: Reports: No Symptoms. Denies: Cyanosis Neurological: Reports: No Symptoms. Denies: Confusion, Dizziness, Headache Psychiatric: Reports: No Symptoms. Denies: Confusion, Depression, Mood Lability - Patient Data Vitals - Most Recent: Last Vital Signs Temp 97.5 F 03/29/21 07:43 Pulse 86 03/29/21 07:43 Resp 20 03/29/21 07:43 BP 148/91 H 03/29/21 07:43 Pulse Ox 94 L 03/29/21 07:43 Weight - Most Recent: 114.94 kg I&O - Last 24 Hours: Intake & Output 03/28/21 03/29/21 03/29/21 22:59 06:59 14:59 Intake Total 640 1629 Output Total 1000 Balance 640 629 Lab Results Last 24 Hours: Laboratory Results - last 24 hr 03/28/21 03/28/21 03/28/21 Range/Units 12:00 12:00 12:01 WBC 20.88 H (4.23-9.07) K/mm3 RBC 4.44 L (4.63-6.08) M/mm3 Hgb 14.9 (13.7-17.5) gm/dl Hct 44.6 (40.1-51.0) % MCV 100.5 H (79.0-92.2) fl MCH 33.6 H (25.7-32.2) pg MCHC 33.4 (32.2-35.5) g/dl RDW Std Deviation 50.1 H (35.1-43.9) fL Plt Count 208 (163-337) K/mm3 MPV 10.1 (9.4-12.3) fl Neut % (Auto) 87.2 H (34.0-67.9) % Lymph % (Auto) 7.6 L (21.8-53.1) % [place] % (Auto) 4.7 L (5.3-12.2) % Eos % (Auto) 0.2 L (0.8-7.0) Baso % (Auto) 0.1 (0.1-1.2) % Neut # (Auto) 18.18 H (1.78-5.38) K/mm3 Lymph # (Auto) 1.59 (1.32-3.57) K/mm3 [place] # (Auto) 0.98 H (0.30-0.82) K/mm3 Eos # (Auto) 0.05 (0.04-0.54) K/mm3 Baso # (Auto) 0.03 (0.01-0.08) K/mm3 Sodium 139 (136-145) mEq/L Potassium 4.5 (3.5-5.1) mEq/L Chloride 104 (98-107) mEq/L Carbon Dioxide 25 (21-32) mEq/L Anion Gap 14.5 (5-15) BUN 17 (7-18) mg/dL Creatinine 1.2 (0.7-1.3) mg/dL Est Cr Clr Drug Dosing 63.83 mL/min Estimated GFR (MDRD) > 60 (>60) mL/min BUN/Creatinine Ratio 14.2 (14-18) Glucose 258 H (70-99) mg/dL POC Glucose (70-99) mg/dL Calcium 8.3 L (8.5-10.1) mg/dL Magnesium (1.8-2.4) mg/dL Total Bilirubin 0.5 (0.2-1.0) mg/dL AST 42 H (15-37) U/L ALT 54 (16-63) U/L Alkaline Phosphatase 90 (46-116) U/L Total Protein 6.9 (6.4-8.2) g/dl Albumin 3.6 (3.4-5.0) g/dl Globulin 3.3 gm/dL Albumin/Globulin Ratio 1.1 (1-2) Amylase 39 (25-115) U/L SARS-CoV-2 RNA (MOUNIKA) Negative (NEGATIVE) MRSA (PCR) 03/28/21 03/29/21 03/29/21 Range/Units 18:13 02:20 06:11 WBC (4.23-9.07) K/mm3 RBC (4.63-6.08) M/mm3 Hgb (13.7-17.5) gm/dl Hct (40.1-51.0) % MCV (79.0-92.2) fl MCH (25.7-32.2) pg MCHC (32.2-35.5) g/dl RDW Std Deviation (35.1-43.9) fL Plt Count (163-337) K/mm3 MPV (9.4-12.3) fl Neut % (Auto) (34.0-67.9) % Lymph % (Auto) (21.8-53.1) % [place] % (Auto) (5.3-12.2) % Eos % (Auto) (0.8-7.0) Baso % (Auto) (0.1-1.2) % Neut # (Auto) (1.78-5.38) K/mm3 Lymph # (Auto) (1.32-3.57) K/mm3 [place] # (Auto) (0.30-0.82) K/mm3 Eos # (Auto) (0.04-0.54) K/mm3 Baso # (Auto) (0.01-0.08) K/mm3 Sodium (136-145) mEq/L Potassium (3.5-5.1) mEq/L Chloride (98-107) mEq/L Carbon Dioxide (21-32) mEq/L Anion Gap (5-15) BUN (7-18) mg/dL Creatinine (0.7-1.3) mg/dL Est Cr Clr Drug Dosing mL/min Estimated GFR (MDRD) (>60) mL/min BUN/Creatinine Ratio (14-18) Glucose (70-99) mg/dL POC Glucose 207 H 187 H (70-99) mg/dL Calcium (8.5-10.1) mg/dL Magnesium (1.8-2.4) mg/dL Total Bilirubin (0.2-1.0) mg/dL AST (15-37) U/L ALT (16-63) U/L Alkaline Phosphatase (46-116) U/L Total Protein (6.4-8.2) g/dl Albumin (3.4-5.0) g/dl Globulin gm/dL Albumin/Globulin Ratio (1-2) Amylase (25-115) U/L SARS-CoV-2 RNA (MOUNIKA) (NEGATIVE) MRSA (PCR) Negative 03/29/21 03/29/21 Range/Units 06:22 06:22 WBC 11.51 H (4.23-9.07) K/mm3 RBC 4.06 L (4.63-6.08) M/mm3 Hgb 13.5 L (13.7-17.5) gm/dl Hct 41.1 (40.1-51.0) % MCV 101.2 H (79.0-92.2) fl MCH 33.3 H (25.7-32.2) pg MCHC 32.8 (32.2-35.5) g/dl RDW Std Deviation 50.2 H (35.1-43.9) fL Plt Count 166 (163-337) K/mm3 MPV 9.7 (9.4-12.3) fl Neut % (Auto) 69.1 H (34.0-67.9) % Lymph % (Auto) 19.7 L (21.8-53.1) % [place] % (Auto) 10.2 (5.3-12.2) % Eos % (Auto) 0.6 L (0.8-7.0) Baso % (Auto) 0.2 (0.1-1.2) % Neut # (Auto) 7.96 H (1.78-5.38) K/mm3 Lymph # (Auto) 2.27 (1.32-3.57) K/mm3 [place] # (Auto) 1.17 H (0.30-0.82) K/mm3 Eos # (Auto) 0.07 (0.04-0.54) K/mm3 Baso # (Auto) 0.02 (0.01-0.08) K/mm3 Sodium 141 (136-145) mEq/L Potassium 4.1 (3.5-5.1) mEq/L Chloride 104 (98-107) mEq/L Carbon Dioxide 29 (21-32) mEq/L Anion Gap 12.1 (5-15) BUN 11 (7-18) mg/dL Creatinine 0.9 (0.7-1.3) mg/dL Est Cr Clr Drug Dosing 85.10 mL/min Estimated GFR (MDRD) > 60 (>60) mL/min BUN/Creatinine Ratio 12.2 L (14-18) Glucose 185 H (70-99) mg/dL POC Glucose (70-99) mg/dL Calcium 8.5 (8.5-10.1) mg/dL Magnesium 1.7 L (1.8-2.4) mg/dL Total Bilirubin 1.0 (0.2-1.0) mg/dL AST 34 (15-37) U/L ALT 52 (16-63) U/L Alkaline Phosphatase 88 (46-116) U/L Total Protein 6.9 (6.4-8.2) g/dl Albumin 3.5 (3.4-5.0) g/dl Globulin 3.4 gm/dL Albumin/Globulin Ratio 1.0 (1-2) Amylase (25-115) U/L SARS-CoV-2 RNA (MOUNIKA) (NEGATIVE) MRSA (PCR) Med Orders - Current: Current Medications Acetaminophen (Acetaminophen 325 Mg Tab) 650 mg PO Q4H PRN PRN Reason: Pain (Mild 1-3)/fever Albuterol (Albuterol 6.7 Gm Inhaler) 0 gm INH Q4H PRN PRN Reason: Shortness of Breath Albuterol/Ipratropium (Albuterol/Ipratropium 3.0-0.5 Mg/3 Ml Neb Soln) 3 ml NEB Q4H PRN PRN Reason: Shortness Of Breath/wheezing Cyclobenzaprine HCl (Cyclobenzaprine 10 Mg Tab) 10 mg PO Q8H PRN PRN Reason: Muscle Spasm - Painful Docusate Sodium (Docusate Sodium 100 Mg Cap) 100 mg PO BID PRN PRN Reason: Constipation Fluticasone Propionate (Fluticasone Propionate Nasal [place] 16 Gm Bottle) 0 gm NASBOTH BID [facility] Heparin Sodium (Porcine) (Heparin Sodium 5,000 Units/Ml Vial) 5,000 units SUBCUT Q8H [facility] Last Admin: 03/28/21 18:00 Dose: 5,000 units Documented by: Lactated Ringer's (Ringers, Lactated) 1,000 mls @ 125 mls/hr IV ASDIRECTED [facility] Last Admin: 03/29/21 06:06 Dose: 125 mls/hr Documented by: Magnesium Sulfate 2 gm/ Premix 50 mls @ 25 mls/hr IV ONETIME ONE Stop: 03/29/21 10:59 Last Admin: 03/29/21 08:28 Dose: 25 mls/hr Documented by: Insulin Human Regular (Insulin Regular, Human 100 Units/Ml 3 Ml Vial) 0 unit SUBCUT [facility]; Protocol Last Admin: 03/29/21 08:09 Dose: 3 unit Documented by: Morphine Sulfate (Morphine 2 Mg/Ml Syringe) 2 mg IVPUSH Q2H PRN PRN Reason: Pain (severe 7-10) Stop: 03/29/21 16:20 Last Admin: 03/29/21 10:32 Dose: 2 mg Documented by: Nicotine (Nicotine 14 Mg/24 Hr Patch) 14 mg TRDERM DAILY [facility] Last Admin: 03/29/21 08:27 Dose: 14 mg Documented by: Ondansetron HCl (Ondansetron 4 Mg Tab.Dis) 4 mg PO Q4H PRN PRN Reason: nausea, able to take PO Oxycodone HCl (Oxycodone 5 Mg Tab) 5 mg PO Q4H PRN PRN Reason: Pain (moderate 4-6) Last Admin: 03/29/21 08:21 Dose: 5 mg Documented by: Sodium Chloride (Sodium Chloride 0.9% 10 Ml Syringe) 10 ml FLUSH ASDIRECTED PRN PRN Reason: Keep Vein Open Last Admin: 03/28/21 12:30 Dose: 10 ml Documented by: Temazepam (Temazepam 15 Mg Cap) 15 mg PO BEDTIME PRN PRN Reason: Sleep Last Admin: 03/28/21 23:53 Dose: 15 mg Documented by: Discontinued Medications Fentanyl (Fentanyl 100 Mcg/2 Ml Sdv) 50 mcg IVPUSH ONETIME ONE Stop: 03/28/21 15:13 Last Admin: 03/28/21 15:22 Dose: 50 mcg Documented by: Hydromorphone HCl (Hydromorphone 1 Mg/Ml Syringe) 1 mg IVPUSH ONETIME ONE Stop: 03/28/21 12:17 Last Admin: 03/28/21 12:29 Dose: 1 mg Documented by: Hydromorphone HCl (Hydromorphone 0.5 Mg/0.5 Ml Syringe) 0.5 mg IVPUSH ONETIME ONE Stop: 03/28/21 14:11 Last Admin: 03/28/21 14:00 Dose: 0.5 mg Documented by: Iopamidol (Iopamidol 612 Mg/Ml 100 Ml Bottle) 100 ml IVPUSH ONETIME ONE Stop: 03/28/21 12:46 Last Admin: 03/28/21 13:36 Dose: 100 ml Documented by: Iopamidol (Iopamidol 612 Mg/Ml 50 Ml Sdv) 50 ml IVPUSH ONETIME ONE Stop: 03/28/21 12:46 Last Admin: 03/28/21 13:36 Dose: 25 ml Documented by: Oxycodone/Acetaminophen (Acetaminophen/Oxycodone 325-5 Mg Tab) 2 tab PO ONETIME ONE Stop: 03/28/21 16:24 Last Admin: 03/28/21 16:32 Dose: 2 tab Documented by: Sodium Chloride (Sodium Chloride 0.9% 10 Ml Syringe) 10 ml FLUSH ONETIME ONE Stop: 03/28/21 12:46 Last Admin: 03/28/21 13:36 Dose: 10 ml Documented by: - Exam Quality Assessment: DVT Prophylaxis (SCDs). No: Supplemental Oxygen, Urine Catheter General: Alert, Oriented, Cooperative, No Acute Distress HEENT: Pupils Equal, Pupils Reactive Neck: Supple, Trachea Midline Lungs: Clear to Auscultation, Normal Respiratory Effort Cardiovascular: Regular Rate, Regular Rhythm GI/Abdominal Exam: Normal Bowel Sounds, Soft, Non-Tender, No Organomegaly, No Distention (Male) Exam: Deferred Extremities: Normal Inspection, No Pedal Edema. No: Normal Range of Motion (limited due to hip fracture ) Peripheral Pulses: 2+: Radial (L), Radial (R), Dorsalis Pedis (L), Dorsalis Pedis (R) Skin: Warm, Dry Neurological: No New Focal Deficit Psy/Mental Status: Alert, Normal Affect, Normal Mood - Patient Data Lab Results Last 24 hrs: Laboratory Results - last 24 hr 09/26/21 09/26/21 09/26/21 Range/Units 12:00 12:00 12:01 WBC 20.88 H (4.23-9.07) K/mm3 RBC 4.44 L (4.63-6.08) M/mm3 Hgb 14.9 (13.7-17.5) gm/dl Hct 44.6 (40.1-51.0) % MCV 100.5 H (79.0-92.2) fl MCH 33.6 H (25.7-32.2) pg MCHC 33.4 (32.2-35.5) g/dl RDW Std Deviation 50.1 H (35.1-43.9) fL Plt Count 208 (163-337) K/mm3 MPV 10.1 (9.4-12.3) fl Neut % (Auto) 87.2 H (34.0-67.9) % Lymph % (Auto) 7.6 L (21.8-53.1) % [place] % (Auto) 4.7 L (5.3-12.2) % Eos % (Auto) 0.2 L (0.8-7.0) Baso % (Auto) 0.1 (0.1-1.2) % Neut # (Auto) 18.18 H (1.78-5.38) K/mm3 Lymph # (Auto) 1.59 (1.32-3.57) K/mm3 [place] # (Auto) 0.98 H (0.30-0.82) K/mm3 Eos # (Auto) 0.05 (0.04-0.54) K/mm3 Baso # (Auto) 0.03 (0.01-0.08) K/mm3 Sodium 139 (136-145) mEq/L Potassium 4.5 (3.5-5.1) mEq/L Chloride 104 (98-107) mEq/L Carbon Dioxide 25 (21-32) mEq/L Anion Gap 14.5 (5-15) BUN 17 (7-18) mg/dL Creatinine 1.2 (0.7-1.3) mg/dL Est Cr Clr Drug Dosing 63.83 mL/min Estimated GFR (MDRD) > 60 (>60) mL/min BUN/Creatinine Ratio 14.2 (14-18) Glucose 258 H (70-99) mg/dL POC Glucose (70-99) mg/dL Calcium 8.3 L (8.5-10.1) mg/dL Magnesium (1.8-2.4) mg/dL Total Bilirubin 0.5 (0.2-1.0) mg/dL AST 42 H (15-37) U/L ALT 54 (16-63) U/L Alkaline Phosphatase 90 (46-116) U/L Total Protein 6.9 (6.4-8.2) g/dl Albumin 3.6 (3.4-5.0) g/dl Globulin 3.3 gm/dL Albumin/Globulin Ratio 1.1 (1-2) Amylase 39 (25-115) U/L SARS-CoV-2 RNA (MOUNIKA) Negative (NEGATIVE) MRSA (PCR) 03/28/21 03/29/21 03/29/21 Range/Units 18:13 02:20 06:11 WBC (4.23-9.07) K/mm3 RBC (4.63-6.08) M/mm3 Hgb (13.7-17.5) gm/dl Hct (40.1-51.0) % MCV (79.0-92.2) fl MCH (25.7-32.2) pg MCHC (32.2-35.5) g/dl RDW Std Deviation (35.1-43.9) fL Plt Count (163-337) K/mm3 MPV (9.4-12.3) fl Neut % (Auto) (34.0-67.9) % Lymph % (Auto) (21.8-53.1) % [place] % (Auto) (5.3-12.2) % Eos % (Auto) (0.8-7.0) Baso % (Auto) (0.1-1.2) % Neut # (Auto) (1.78-5.38) K/mm3 Lymph # (Auto) (1.32-3.57) K/mm3 [place] # (Auto) (0.30-0.82) K/mm3 Eos # (Auto) (0.04-0.54) K/mm3 Baso # (Auto) (0.01-0.08) K/mm3 Sodium (136-145) mEq/L Potassium (3.5-5.1) mEq/L Chloride (98-107) mEq/L Carbon Dioxide (21-32) mEq/L Anion Gap (5-15) BUN (7-18) mg/dL Creatinine (0.7-1.3) mg/dL Est Cr Clr Drug Dosing mL/min Estimated GFR (MDRD) (>60) mL/min BUN/Creatinine Ratio (14-18) Glucose (70-99) mg/dL POC Glucose 207 H 187 H (70-99) mg/dL Calcium (8.5-10.1) mg/dL Magnesium (1.8-2.4) mg/dL Total Bilirubin (0.2-1.0) mg/dL AST (15-37) U/L ALT (16-63) U/L Alkaline Phosphatase (46-116) U/L Total Protein (6.4-8.2) g/dl Albumin (3.4-5.0) g/dl Globulin gm/dL Albumin/Globulin Ratio (1-2) Amylase (25-115) U/L SARS-CoV-2 RNA (MOUNIKA) (NEGATIVE) MRSA (PCR) Negative 03/29/21 03/29/21 Range/Units 06:22 06:22 WBC 11.51 H (4.23-9.07) K/mm3 RBC 4.06 L (4.63-6.08) M/mm3 Hgb 13.5 L (13.7-17.5) gm/dl Hct 41.1 (40.1-51.0) % MCV 101.2 H (79.0-92.2) fl MCH 33.3 H (25.7-32.2) pg MCHC 32.8 (32.2-35.5) g/dl RDW Std Deviation 50.2 H (35.1-43.9) fL Plt Count 166 (163-337) K/mm3 MPV 9.7 (9.4-12.3) fl Neut % (Auto) 69.1 H (34.0-67.9) % Lymph % (Auto) 19.7 L (21.8-53.1) % [place] % (Auto) 10.2 (5.3-12.2) % Eos % (Auto) 0.6 L (0.8-7.0) Baso % (Auto) 0.2 (0.1-1.2) % Neut # (Auto) 7.96 H (1.78-5.38) K/mm3 Lymph # (Auto) 2.27 (1.32-3.57) K/mm3 [place] # (Auto) 1.17 H (0.30-0.82) K/mm3 Eos # (Auto) 0.07 (0.04-0.54) K/mm3 Baso # (Auto) 0.02 (0.01-0.08) K/mm3 Sodium 141 (136-145) mEq/L Potassium 4.1 (3.5-5.1) mEq/L Chloride 104 (98-107) mEq/L Carbon Dioxide 29 (21-32) mEq/L Anion Gap 12.1 (5-15) BUN 11 (7-18) mg/dL Creatinine 0.9 (0.7-1.3) mg/dL Est Cr Clr Drug Dosing 85.10 mL/min Estimated GFR (MDRD) > 60 (>60) mL/min BUN/Creatinine Ratio 12.2 L (14-18) Glucose 185 H (70-99) mg/dL POC Glucose (70-99) mg/dL Calcium 8.5 (8.5-10.1) mg/dL Magnesium 1.7 L (1.8-2.4) mg/dL Total Bilirubin 1.0 (0.2-1.0) mg/dL AST 34 (15-37) U/L ALT 52 (16-63) U/L Alkaline Phosphatase 88 (46-116) U/L Total Protein 6.9 (6.4-8.2) g/dl Albumin 3.5 (3.4-5.0) g/dl Globulin 3.4 gm/dL Albumin/Globulin Ratio 1.0 (1-2) Amylase (25-115) U/L SARS-CoV-2 RNA (MOUNIKA) (NEGATIVE) MRSA (PCR) Result Diagrams: 03/29/21 06:22 03/29/21 06:22 Sepsis Event Note - Evaluation Sepsis Screening Result: No Definite Risk - Focused Exam Vital Signs: Vital Signs Temp Pulse Resp BP Pulse Ox 03/29/21 07:43 97.5 F 86 20 148/91 H 94 L 03/29/21 04:54 98.2 F 86 20 151/85 H 95 - Problem List & Annotations (1) Closed intertrochanteric fracture of left hip SNOMED Code(s): 99951820, 50920390291914618 Code(s): S72.142A - DISPLACED INTERTROCHANTERIC FRACTURE OF LEFT FEMUR, INIT Status: Acute Priority: High Current Visit: Yes Qualifiers: Encounter type: initial encounter Fracture alignment: displaced Qualified Code(s): S72.142A - Displaced intertrochanteric fracture of left femur, initial encounter for closed fracture (2) COPD (chronic obstructive pulmonary disease) SNOMED Code(s): 81892288 Code(s): J44.9 - CHRONIC OBSTRUCTIVE PULMONARY DISEASE, UNSPECIFIED Status: Chronic Priority: Medium Current Visit: Yes Qualifiers: COPD type: chronic bronchitis Chronic bronchitis type: unspecified Qualified Code(s): J42 - Unspecified chronic bronchitis (3) Diabetes mellitus type 2 in obese SNOMED Code(s): 54104953 Code(s): E11.69 - TYPE 2 DIABETES MELLITUS WITH OTHER SPECIFIED COMPLICATION; E66.9 - OBESITY, UNSPECIFIED Status: Chronic Priority: High Current Visit: Yes (4) Dyslipidemia SNOMED Code(s): 497936838 Code(s): E78.5 - HYPERLIPIDEMIA, UNSPECIFIED Status: Chronic Priority: Medium Current Visit: Yes (5) Hypertension SNOMED Code(s): 67542759 Code(s): I10 - ESSENTIAL (PRIMARY) HYPERTENSION Status: Chronic Priority: High Current Visit: Yes Qualifiers: Hypertension type: primary hypertension Qualified Code(s): I10 - Essential (primary) hypertension (6) Thoracic ascending aortic aneurysm Status: Chronic Priority: Medium Current Visit: Yes (7) Tobacco dependency SNOMED Code(s): 89964609 Code(s): F17.200 - NICOTINE DEPENDENCE, UNSPECIFIED, UNCOMPLICATED Status: Chronic Priority: Medium Current Visit: Yes (8) Hypomagnesemia SNOMED Code(s): 922013900 Code(s): E83.42 - HYPOMAGNESEMIA Status: Acute Priority: High Current Visit: Yes - Problem List Review Problem List Initiated/Reviewed/Updated: Yes - Plan Plan:: 03/28/2021 The patient is a 60-year-old gentleman who was going to be admitted as an inpatient secondary to left intertrochanteric fracture hip. The patient reportedly had a mechanical fall. He does have a history of diabetes mellitus type 2 and he has been placed on insulin sliding scale at high dose. The patient will also be started on a clear liquid diet to be kept n.p.o. after midnight for possible surgery. The patient is a tobacco user and has been ordered to have nicotine patch 14 mg daily to help with nicotine addiction. He also has a COPD history which is not exacerbation and the patient's oxygen saturations will be monitored and kept around 92 to 93%. The patient will have his vital signs monitored and his antihypertensive medication will be adjusted as necessary. The patient will also have DVT prophylaxis with the use of hep alexa 5000 units subcutaneous every 8 hours. PT OT has also been ordered for the patient. The patient will likely need to have intensive rehabilitation after prospective surgery. 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 In accordance with the AHA/ACC guidelines the patient is considered to be at low risk for prospective surgery. 03/29/2021 This is a 60-year-old male admitted to the floor secondary to a left intertrochanteric hip fracture after having a mechanical fall. The patient has been NPO since midnight and will undergo surgery for his left hip fracture today. He states that his pain is pretty well managed but that he does have pain in his left hip when he moves. PT/OT will be initiated post-surgery. He has a history of Type 2 DM and has been on a sliding scale insulin regime. He has a history of HTN. Vitals are being monitored daily and he is continuing on his blood pressure medications. The patient is a current smoker and has been placed on nicotine patches. He has a history of COPD. Oxygen saturations are being monitored and have been stable. Of note, the patient does have a 4.2 ascending thoracic aneurysm which will need to be followed-up on an outpatient basis. He also has a 9mm nodule in his right lung. He will need to follow-up on an outpatient basis for this. Labs were obtained today: WBC 11.51. Hemoglobin 13.5. Platelets 166,000. Sodium 141. Potassium 4.1.Chloride 104. Carbon dioxide 29. Anion gap 12.1. BUN 11. Creatinine 0.9. Glucose 185. Calcium 8.5. Magnesium low at 1.7 (this was supplemented today). Total bili 1.0. AST 34. ALT 52. Alkaline phosphatase 88. Albumin 3.5. COVID test negative. MRSA negative. <Prashanth Cheng - Last Filed: 03/29/21 12:15> - Patient Data Vitals - Most Recent: Last Vital Signs Temp 98.4 F 03/29/21 11:10 Pulse 80 03/29/21 11:10 Resp 20 03/29/21 11:10 BP 157/80 H 03/29/21 11:10 Pulse Ox 100 03/29/21 11:44 I&O - Last 24 Hours: Intake & Output 03/28/21 03/29/21 03/29/21 22:59 06:59 14:59 Intake Total 640 1629 Output Total 1000 Balance 640 629 Lab Results Last 24 Hours: Laboratory Results - last 24 hr 03/28/21 03/28/21 03/28/21 Range/Units 12:00 12:00 12:01 WBC 20.88 H (4.23-9.07) K/mm3 RBC 4.44 L (4.63-6.08) M/mm3 Hgb 14.9 (13.7-17.5) gm/dl Hct 44.6 (40.1-51.0) % MCV 100.5 H (79.0-92.2) fl MCH 33.6 H (25.7-32.2) pg MCHC 33.4 (32.2-35.5) g/dl RDW Std Deviation 50.1 H (35.1-43.9) fL Plt Count 208 (163-337) K/mm3 MPV 10.1 (9.4-12.3) fl Neut % (Auto) 87.2 H (34.0-67.9) % Lymph % (Auto) 7.6 L (21.8-53.1) % [place] % (Auto) 4.7 L (5.3-12.2) % Eos % (Auto) 0.2 L (0.8-7.0) Baso % (Auto) 0.1 (0.1-1.2) % Neut # (Auto) 18.18 H (1.78-5.38) K/mm3 Lymph # (Auto) 1.59 (1.32-3.57) K/mm3 [place] # (Auto) 0.98 H (0.30-0.82) K/mm3 Eos # (Auto) 0.05 (0.04-0.54) K/mm3 Baso # (Auto) 0.03 (0.01-0.08) K/mm3 Sodium 139 (136-145) mEq/L Potassium 4.5 (3.5-5.1) mEq/L Chloride 104 (98-107) mEq/L Carbon Dioxide 25 (21-32) mEq/L Anion Gap 14.5 (5-15) BUN 17 (7-18) mg/dL Creatinine 1.2 (0.7-1.3) mg/dL Est Cr Clr Drug Dosing 63.83 mL/min Estimated GFR (MDRD) > 60 (>60) mL/min BUN/Creatinine Ratio 14.2 (14-18) Glucose 258 H (70-99) mg/dL POC Glucose (70-99) mg/dL Calcium 8.3 L (8.5-10.1) mg/dL Magnesium (1.8-2.4) mg/dL Total Bilirubin 0.5 (0.2-1.0) mg/dL AST 42 H (15-37) U/L ALT 54 (16-63) U/L Alkaline Phosphatase 90 (46-116) U/L Total Protein 6.9 (6.4-8.2) g/dl Albumin 3.6 (3.4-5.0) g/dl Globulin 3.3 gm/dL Albumin/Globulin Ratio 1.1 (1-2) Amylase 39 (25-115) U/L SARS-CoV-2 RNA (MOUNIKA) Negative (NEGATIVE) MRSA (PCR) 03/28/21 03/29/21 03/29/21 Range/Units 18:13 02:20 06:11 WBC (4.23-9.07) K/mm3 RBC (4.63-6.08) M/mm3 Hgb (13.7-17.5) gm/dl Hct (40.1-51.0) % MCV (79.0-92.2) fl MCH (25.7-32.2) pg MCHC (32.2-35.5) g/dl RDW Std Deviation (35.1-43.9) fL Plt Count (163-337) K/mm3 MPV (9.4-12.3) fl Neut % (Auto) (34.0-67.9) % Lymph % (Auto) (21.8-53.1) % [place] % (Auto) (5.3-12.2) % Eos % (Auto) (0.8-7.0) Baso % (Auto) (0.1-1.2) % Neut # (Auto) (1.78-5.38) K/mm3 Lymph # (Auto) (1.32-3.57) K/mm3 [place] # (Auto) (0.30-0.82) K/mm3 Eos # (Auto) (0.04-0.54) K/mm3 Baso # (Auto) (0.01-0.08) K/mm3 Sodium (136-145) mEq/L Potassium (3.5-5.1) mEq/L Chloride (98-107) mEq/L Carbon Dioxide (21-32) mEq/L Anion Gap (5-15) BUN (7-18) mg/dL Creatinine (0.7-1.3) mg/dL Est Cr Clr Drug Dosing mL/min Estimated GFR (MDRD) (>60) mL/min BUN/Creatinine Ratio (14-18) Glucose (70-99) mg/dL POC Glucose 207 H 187 H (70-99) mg/dL Calcium (8.5-10.1) mg/dL Magnesium (1.8-2.4) mg/dL Total Bilirubin (0.2-1.0) mg/dL AST (15-37) U/L ALT (16-63) U/L Alkaline Phosphatase (46-116) U/L Total Protein (6.4-8.2) g/dl Albumin (3.4-5.0) g/dl Globulin gm/dL Albumin/Globulin Ratio (1-2) Amylase (25-115) U/L SARS-CoV-2 RNA (MOUNIKA) (NEGATIVE) MRSA (PCR) Negative 03/29/21 03/29/21 03/29/21 Range/Units 06:22 06:22 11:08 WBC 11.51 H (4.23-9.07) K/mm3 RBC 4.06 L (4.63-6.08) M/mm3 Hgb 13.5 L (13.7-17.5) gm/dl Hct 41.1 (40.1-51.0) % MCV 101.2 H (79.0-92.2) fl MCH 33.3 H (25.7-32.2) pg MCHC 32.8 (32.2-35.5) g/dl RDW Std Deviation 50.2 H (35.1-43.9) fL Plt Count 166 (163-337) K/mm3 MPV 9.7 (9.4-12.3) fl Neut % (Auto) 69.1 H (34.0-67.9) % Lymph % (Auto) 19.7 L (21.8-53.1) % [place] % (Auto) 10.2 (5.3-12.2) % Eos % (Auto) 0.6 L (0.8-7.0) Baso % (Auto) 0.2 (0.1-1.2) % Neut # (Auto) 7.96 H (1.78-5.38) K/mm3 Lymph # (Auto) 2.27 (1.32-3.57) K/mm3 [place] # (Auto) 1.17 H (0.30-0.82) K/mm3 Eos # (Auto) 0.07 (0.04-0.54) K/mm3 Baso # (Auto) 0.02 (0.01-0.08) K/mm3 Sodium 141 (136-145) mEq/L Potassium 4.1 (3.5-5.1) mEq/L Chloride 104 (98-107) mEq/L Carbon Dioxide 29 (21-32) mEq/L Anion Gap 12.1 (5-15) BUN 11 (7-18) mg/dL Creatinine 0.9 (0.7-1.3) mg/dL Est Cr Clr Drug Dosing 85.10 mL/min Estimated GFR (MDRD) > 60 (>60) mL/min BUN/Creatinine Ratio 12.2 L (14-18) Glucose 185 H (70-99) mg/dL POC Glucose 195 H (70-99) mg/dL Calcium 8.5 (8.5-10.1) mg/dL Magnesium 1.7 L (1.8-2.4) mg/dL Total Bilirubin 1.0 (0.2-1.0) mg/dL AST 34 (15-37) U/L ALT 52 (16-63) U/L Alkaline Phosphatase 88 (46-116) U/L Total Protein 6.9 (6.4-8.2) g/dl Albumin 3.5 (3.4-5.0) g/dl Globulin 3.4 gm/dL Albumin/Globulin Ratio 1.0 (1-2) Amylase (25-115) U/L SARS-CoV-2 RNA ([facility]OU[facility]KA) (NEGATIVE) MRSA (PCR) Med Orders - Current: Current Medications Acetaminophen (Acetaminophen 325 Mg Tab) 650 mg PO Q4H PRN PRN Reason: Pain (Mild 1-3)/fever Albuterol (Albuterol 6.7 Gm Inhaler) 0 gm INH Q4H PRN PRN Reason: Shortness of Breath Albuterol/Ipratropium (Albuterol/Ipratropium 3.0-0.5 Mg/3 Ml Neb Soln) 3 ml NEB Q4H PRN PRN Reason: Shortness Of Breath/wheezing Last Admin: 03/29/21 11:44 Dose: 3 ml Documented by: Cyclobenzaprine HCl (Cyclobenzaprine 10 Mg Tab) 10 mg PO Q8H PRN PRN Reason: Muscle Spasm - Painful Docusate Sodium (Docusate Sodium 100 Mg Cap) 100 mg PO BID PRN PRN Reason: Constipation Fluticasone Propionate (Fluticasone Propionate Nasal [place] 16 Gm Bottle) 0 gm NASBOTH BID [facility] Heparin Sodium (Porcine) (Heparin Sodium 5,000 Units/Ml Vial) 5,000 units SUBCUT Q8H [facility] Last Admin: 03/28/21 18:00 Dose: 5,000 units Documented by: Lactated Ringer's (Ringers, Lactated) 1,000 mls @ 125 mls/hr IV ASDIRECTED [facility] Last Admin: 03/29/21 06:06 Dose: 125 mls/hr Documented by: Insulin Human Regular (Insulin Regular, Human 100 Units/Ml 3 Ml Vial) 0 unit SUBCUT TIDPC [facility]; Protocol Last Admin: 03/29/21 11:47 Dose: 3 unit Documented by: Morphine Sulfate (Morphine 2 Mg/Ml Syringe) 2 mg IVPUSH Q2H PRN PRN Reason: Pain (severe 7-10) Stop: 03/29/21 16:20 Last Admin: 03/29/21 10:32 Dose: 2 mg Documented by: Nicotine (Nicotine 14 Mg/24 Hr Patch) 14 mg TRDERM DAILY [place] Last Admin: 03/29/21 08:27 Dose: 14 mg Documented by: Ondansetron HCl (Ondansetron 4 Mg Tab.Dis) 4 mg PO Q4H PRN PRN Reason: nausea, able to take PO Oxycodone HCl (Oxycodone 5 Mg Tab) 5 mg PO Q4H PRN PRN Reason: Pain (moderate 4-6) Last Admin: 03/29/21 08:21 Dose: 5 mg Documented by: Sodium Chloride (Sodium Chloride 0.9% 10 Ml Syringe) 10 ml FLUSH ASDIRECTED PRN PRN Reason: Keep Vein Open Last Admin: 03/28/21 12:30 Dose: 10 ml Documented by: Temazepam (Temazepam 15 Mg Cap) 15 mg PO BEDTIME PRN PRN Reason: Sleep Last Admin: 03/28/21 23:53 Dose: 15 mg Documented by: Discontinued Medications Bupivacaine HCl (Bupivacaine 0.25% 10 Ml Sdv) Confirm Administered Dose 20 ml .ROUTE .STK-MED ONE Stop: 03/29/21 11:48 Cefazolin Sodium (Cefazolin 1 Gm Vial) Confirm Administered Dose 2 gm .ROUTE .STK-MED ONE Stop: 03/29/21 11:06 Fentanyl (Fentanyl 100 Mcg/2 Ml Sdv) 50 mcg IVPUSH ONETIME ONE Stop: 03/28/21 15:13 Last Admin: 03/28/21 15:22 Dose: 50 mcg Documented by: Fentanyl (Fentanyl 100 Mcg/2 Ml Sdv) Confirm Administered Dose 100 mcg .ROUTE .STK-MED ONE Stop: 03/29/21 11:07 Hydromorphone HCl (Hydromorphone 1 Mg/Ml Syringe) 1 mg IVPUSH ONETIME ONE Stop: 03/28/21 12:17 Last Admin: 03/28/21 12:29 Dose: 1 mg Documented by: Hydromorphone HCl (Hydromorphone 0.5 Mg/0.5 Ml Syringe) 0.5 mg IVPUSH ONETIME ONE Stop: 03/28/21 14:11 Last Admin: 03/28/21 14:00 Dose: 0.5 mg Documented by: Hydromorphone HCl (Hydromorphone 0.5 Mg/0.5 Ml Syringe) Confirm Administered Dose 0.5 mg .ROUTE .STK-MED ONE Stop: 03/29/21 11:09 Magnesium Sulfate 2 gm/ Premix 50 mls @ 25 mls/hr IV ONETIME ONE Stop: 03/29/21 10:59 Last Admin: 03/29/21 08:28 Dose: 25 mls/hr Documented by: Lactated Ringer's (Ringers, Lactated) Confirm Administered Dose 2,000 mls @ as directed .ROUTE .STK-MED ONE Stop: 03/29/21 11:06 Iopamidol (Iopamidol 612 Mg/Ml 100 Ml Bottle) 100 ml IVPUSH ONETIME ONE Stop: 03/28/21 12:46 Last Admin: 03/28/21 13:36 Dose: 100 ml Documented by: Iopamidol (Iopamidol 612 Mg/Ml 50 Ml Sdv) 50 ml IVPUSH ONETIME ONE Stop: 03/28/21 12:46 Last Admin: 03/28/21 13:36 Dose: 25 ml Documented by: Ketamine HCl (Ketamine 500 Mg/10 Ml Mdv) Confirm Administered Dose 500 mg .ROUTE .STK-MED ONE Stop: 03/29/21 11:07 Ketorolac Tromethamine (Ketorolac 30 Mg/Ml Sdv) Confirm Administered Dose 30 mg .ROUTE .STK-MED ONE Stop: 03/29/21 11:06 Midazolam HCl (Midazolam 1 Mg/Ml 2 Ml Sdv) Confirm Administered Dose 2 mg .ROUTE .STK-MED ONE Stop: 03/29/21 11:07 Ondansetron HCl (Ondansetron 4 Mg/2 Ml Sdv) Confirm Administered Dose 4 mg .ROUTE .STK-MED ONE Stop: 03/29/21 11:06 Oxycodone/Acetaminophen (Acetaminophen/Oxycodone 325-5 Mg Tab) 2 tab PO ONETIME ONE Stop: 03/28/21 16:24 Last Admin: 03/28/21 16:32 Dose: 2 tab Documented by: Propofol (Propofol 200 Mg/20 Ml Sdv) Confirm Administered Dose 400 mg .ROUTE .STK-MED ONE Stop: 03/29/21 11:06 Sodium Chloride (Sodium Chloride 0.9% 10 Ml Syringe) 10 ml FLUSH ONETIME ONE Stop: 03/28/21 12:46 Last Admin: 03/28/21 13:36 Dose: 10 ml Documented by: - Patient Data Lab Results Last 24 hrs: Laboratory Results - last 24 hr 03/28/21 03/28/21 03/28/21 Range/Units 12:00 12:00 12:01 WBC 20.88 H (4.23-9.07) K/mm3 RBC 4.44 L (4.63-6.08) M/mm3 Hgb 14.9 (13.7-17.5) gm/dl Hct 44.6 (40.1-51.0) % MCV 100.5 H (79.0-92.2) fl MCH 33.6 H (25.7-32.2) pg MCHC 33.4 (32.2-35.5) g/dl RDW Std Deviation 50.1 H (35.1-43.9) fL Plt Count 208 (163-337) K/mm3 MPV 10.1 (9.4-12.3) fl Neut % (Auto) 87.2 H (34.0-67.9) % Lymph % (Auto) 7.6 L (21.8-53.1) % [place] % (Auto) 4.7 L (5.3-12.2) % Eos % (Auto) 0.2 L (0.8-7.0) Baso % (Auto) 0.1 (0.1-1.2) % Neut # (Auto) 18.18 H (1.78-5.38) K/mm3 Lymph # (Auto) 1.59 (1.32-3.57) K/mm3 [place] # (Auto) 0.98 H (0.30-0.82) K/mm3 Eos # (Auto) 0.05 (0.04-0.54) K/mm3 Baso # (Auto) 0.03 (0.01-0.08) K/mm3 Sodium 139 (136-145) mEq/L Potassium 4.5 (3.5-5.1) mEq/L Chloride 104 (98-107) mEq/L Carbon Dioxide 25 (21-32) mEq/L Anion Gap 14.5 (5-15) BUN 17 (7-18) mg/dL Creatinine 1.2 (0.7-1.3) mg/dL Est Cr Clr Drug Dosing 63.83 mL/min Estimated GFR (MDRD) > 60 (>60) mL/min BUN/Creatinine Ratio 14.2 (14-18) Glucose 258 H (70-99) mg/dL POC Glucose (70-99) mg/dL Calcium 8.3 L (8.5-10.1) mg/dL Magnesium (1.8-2.4) mg/dL Total Bilirubin 0.5 (0.2-1.0) mg/dL AST 42 H (15-37) U/L ALT 54 (16-63) U/L Alkaline Phosphatase 90 (46-116) U/L Total Protein 6.9 (6.4-8.2) g/dl Albumin 3.6 (3.4-5.0) g/dl Globulin 3.3 gm/dL Albumin/Globulin Ratio 1.1 (1-2) Amylase 39 (25-115) U/L SARS-CoV-2 RNA (MOUNIKA) Negative (NEGATIVE) MRSA (PCR) 03/28/21 03/29/21 03/29/21 Range/Units 18:13 02:20 06:11 WBC (4.23-9.07) K/mm3 RBC (4.63-6.08) M/mm3 Hgb (13.7-17.5) gm/dl Hct (40.1-51.0) % MCV (79.0-92.2) fl MCH (25.7-32.2) pg MCHC (32.2-35.5) g/dl RDW Std Deviation (35.1-43.9) fL Plt Count (163-337) K/mm3 MPV (9.4-12.3) fl Neut % (Auto) (34.0-67.9) % Lymph % (Auto) (21.8-53.1) % [place] % (Auto) (5.3-12.2) % Eos % (Auto) (0.8-7.0) Baso % (Auto) (0.1-1.2) % Neut # (Auto) (1.78-5.38) K/mm3 Lymph # (Auto) (1.32-3.57) K/mm3 [place] # (Auto) (0.30-0.82) K/mm3 Eos # (Auto) (0.04-0.54) K/mm3 Baso # (Auto) (0.01-0.08) K/mm3 Sodium (136-145) mEq/L Potassium (3.5-5.1) mEq/L Chloride (98-107) mEq/L Carbon Dioxide (21-32) mEq/L Anion Gap (5-15) BUN (7-18) mg/dL Creatinine (0.7-1.3) mg/dL Est Cr Clr Drug Dosing mL/min Estimated GFR (MDRD) (>60) mL/min BUN/Creatinine Ratio (14-18) Glucose (70-99) mg/dL POC Glucose 207 H 187 H (70-99) mg/dL Calcium (8.5-10.1) mg/dL Magnesium (1.8-2.4) mg/dL Total Bilirubin (0.2-1.0) mg/dL AST (15-37) U/L ALT (16-63) U/L Alkaline Phosphatase (46-116) U/L Total Protein (6.4-8.2) g/dl Albumin (3.4-5.0) g/dl Globulin gm/dL Albumin/Globulin Ratio (1-2) Amylase (25-115) U/L SARS-CoV-2 RNA (MOUNIKA) (NEGATIVE) MRSA (PCR) Negative 03/29/21 03/29/21 03/29/21 Range/Units 06:22 06:22 11:08 WBC 11.51 H (4.23-9.07) K/mm3 RBC 4.06 L (4.63-6.08) M/mm3 Hgb 13.5 L (13.7-17.5) gm/dl Hct 41.1 (40.1-51.0) % MCV 101.2 H (79.0-92.2) fl MCH 33.3 H (25.7-32.2) pg MCHC 32.8 (32.2-35.5) g/dl RDW Std Deviation 50.2 H (35.1-43.9) fL Plt Count 166 (163-337) K/mm3 MPV 9.7 (9.4-12.3) fl Neut % (Auto) 69.1 H (34.0-67.9) % Lymph % (Auto) 19.7 L (21.8-53.1) % [place] % (Auto) 10.2 (5.3-12.2) % Eos % (Auto) 0.6 L (0.8-7.0) Baso % (Auto) 0.2 (0.1-1.2) % Neut # (Auto) 7.96 H (1.78-5.38) K/mm3 Lymph # (Auto) 2.27 (1.32-3.57) K/mm3 [place] # (Auto) 1.17 H (0.30-0.82) K/mm3 Eos # (Auto) 0.07 (0.04-0.54) K/mm3 Baso # (Auto) 0.02 (0.01-0.08) K/mm3 Sodium 141 (136-145) mEq/L Potassium 4.1 (3.5-5.1) mEq/L Chloride 104 (98-107) mEq/L Carbon Dioxide 29 (21-32) mEq/L Anion Gap 12.1 (5-15) BUN 11 (7-18) mg/dL Creatinine 0.9 (0.7-1.3) mg/dL Est Cr Clr Drug Dosing 85.10 mL/min Estimated GFR (MDRD) > 60 (>60) mL/min BUN/Creatinine Ratio 12.2 L (14-18) Glucose 185 H (70-99) mg/dL POC Glucose 195 H (70-99) mg/dL Calcium 8.5 (8.5-10.1) mg/dL Magnesium 1.7 L (1.8-2.4) mg/dL Total Bilirubin 1.0 (0.2-1.0) mg/dL AST 34 (15-37) U/L ALT 52 (16-63) U/L Alkaline Phosphatase 88 (46-116) U/L Total Protein 6.9 (6.4-8.2) g/dl Albumin 3.5 (3.4-5.0) g/dl Globulin 3.4 gm/dL Albumin/Globulin Ratio 1.0 (1-2) Amylase (25-115) U/L SARS-CoV-2 RNA (MOUNIKA) (NEGATIVE) MRSA (PCR) Result Diagrams: 03/29/21 06:22 03/29/21 06:22 Sepsis Event Note - Focused Exam Vital Signs: Vital Signs Temp Pulse Resp BP Pulse Ox Pulse Ox 03/29/21 11:44 100 03/29/21 11:10 98.4 F 80 20 157/80 H 95 03/29/21 07:43 97.5 F 86 20 148/91 H 94 L 03/29/21 04:54 98.2 F 86 20 151/85 H 95 - My Orders Last 24 Hours: My Active Orders 03/29/21 09:32 RT Post Treatment Assessment [RC] Click to Edit RT Pre-Treatment Assessment [RC] Click to Edit Albuterol [Proventil HFA] 0 gm INH Q4H PRN 03/29/21 21:00 Fluticasone Propionate [Flonase] 0 gm NASBOTH BID - Plan Plan:: I evaluated the patient independent of YOLANDA Medina and agree to her plan and evaluation as noted above. <Jairon Pires - Last Filed: 03/29/21 13:31> - Patient Data Vitals - Most Recent: Last Vital Signs Temp 36.9 C 03/29/21 11:10 Pulse 80 03/29/21 11:10 Resp 20 03/29/21 11:10 BP 157/80 H 03/29/21 11:10 Pulse Ox 100 03/29/21 11:44 I&O - Last 24 Hours: Intake & Output 03/28/21 03/29/21 03/29/21 22:59 06:59 14:59 Intake Total 640 1629 Output Total 1000 Balance 640 629 Lab Results Last 24 Hours: Laboratory Results - last 24 hr 03/28/21 03/28/21 03/29/21 Range/Units 12:01 18:13 02:20 WBC (4.23-9.07) K/mm3 RBC (4.63-6.08) M/mm3 Hgb (13.7-17.5) gm/dl Hct (40.1-51.0) % MCV (79.0-92.2) fl MCH (25.7-32.2) pg MCHC (32.2-35.5) g/dl RDW Std Deviation (35.1-43.9) fL Plt Count (163-337) K/mm3 MPV (9.4-12.3) fl Neut % (Auto) (34.0-67.9) % Lymph % (Auto) (21.8-53.1) % [place] % (Auto) (5.3-12.2) % Eos % (Auto) (0.8-7.0) Baso % (Auto) (0.1-1.2) % Neut # (Auto) (1.78-5.38) K/mm3 Lymph # (Auto) (1.32-3.57) K/mm3 [place] # (Auto) (0.30-0.82) K/mm3 Eos # (Auto) (0.04-0.54) K/mm3 Baso # (Auto) (0.01-0.08) K/mm3 Sodium (136-145) mEq/L Potassium (3.5-5.1) mEq/L Chloride (98-107) mEq/L Carbon Dioxide (21-32) mEq/L Anion Gap (5-15) BUN (7-18) mg/dL Creatinine (0.7-1.3) mg/dL Est Cr Clr Drug Dosing mL/min Estimated GFR (MDRD) (>60) mL/min BUN/Creatinine Ratio (14-18) Glucose (70-99) mg/dL POC Glucose 207 H (70-99) mg/dL Calcium (8.5-10.1) mg/dL Magnesium (1.8-2.4) mg/dL Total Bilirubin (0.2-1.0) mg/dL AST (15-37) U/L ALT (16-63) U/L Alkaline Phosphatase (46-116) U/L Total Protein (6.4-8.2) g/dl Albumin (3.4-5.0) g/dl Globulin gm/dL Albumin/Globulin Ratio (1-2) SARS-CoV-2 RNA (MOUNIKA) Negative (NEGATIVE) MRSA (PCR) Negative 03/29/21 03/29/21 03/29/21 Range/Units 06:11 06:22 06:22 WBC 11.51 H (4.23-9.07) K/mm3 RBC 4.06 L (4.63-6.08) M/mm3 Hgb 13.5 L (13.7-17.5) gm/dl Hct 41.1 (40.1-51.0) % MCV 101.2 H (79.0-92.2) fl MCH 33.3 H (25.7-32.2) pg MCHC 32.8 (32.2-35.5) g/dl RDW Std Deviation 50.2 H (35.1-43.9) fL Plt Count 166 (163-337) K/mm3 MPV 9.7 (9.4-12.3) fl Neut % (Auto) 69.1 H (34.0-67.9) % Lymph % (Auto) 19.7 L (21.8-53.1) % [place] % (Auto) 10.2 (5.3-12.2) % Eos % (Auto) 0.6 L (0.8-7.0) Baso % (Auto) 0.2 (0.1-1.2) % Neut # (Auto) 7.96 H (1.78-5.38) K/mm3 Lymph # (Auto) 2.27 (1.32-3.57) K/mm3 [place] # (Auto) 1.17 H (0.30-0.82) K/mm3 Eos # (Auto) 0.07 (0.04-0.54) K/mm3 Baso # (Auto) 0.02 (0.01-0.08) K/mm3 Sodium 141 (136-145) mEq/L Potassium 4.1 (3.5-5.1) mEq/L Chloride 104 (98-107) mEq/L Carbon Dioxide 29 (21-32) mEq/L Anion Gap 12.1 (5-15) BUN 11 (7-18) mg/dL Creatinine 0.9 (0.7-1.3) mg/dL Est Cr Clr Drug Dosing 85.10 mL/min Estimated GFR (MDRD) > 60 (>60) mL/min BUN/Creatinine Ratio 12.2 L (14-18) Glucose 185 H (70-99) mg/dL POC Glucose 187 H (70-99) mg/dL Calcium 8.5 (8.5-10.1) mg/dL Magnesium 1.7 L (1.8-2.4) mg/dL Total Bilirubin 1.0 (0.2-1.0) mg/dL AST 34 (15-37) U/L ALT 52 (16-63) U/L Alkaline Phosphatase 88 (46-116) U/L Total Protein 6.9 (6.4-8.2) g/dl Albumin 3.5 (3.4-5.0) g/dl Globulin 3.4 gm/dL Albumin/Globulin Ratio 1.0 (1-2) SARS-CoV-2 RNA (MOUNIKA) (NEGATIVE) MRSA (PCR) 03/29/21 Range/Units 11:08 WBC (4.23-9.07) K/mm3 RBC (4.63-6.08) M/mm3 Hgb (13.7-17.5) gm/dl Hct (40.1-51.0) % MCV (79.0-92.2) fl MCH (25.7-32.2) pg MCHC (32.2-35.5) g/dl RDW Std Deviation (35.1-43.9) fL Plt Count (163-337) K/mm3 MPV (9.4-12.3) fl Neut % (Auto) (34.0-67.9) % Lymph % (Auto) (21.8-53.1) % [place] % (Auto) (5.3-12.2) % Eos % (Auto) (0.8-7.0) Baso % (Auto) (0.1-1.2) % Neut # (Auto) (1.78-5.38) K/mm3 Lymph # (Auto) (1.32-3.57) K/mm3 [place] # (Auto) (0.30-0.82) K/mm3 Eos # (Auto) (0.04-0.54) K/mm3 Baso # (Auto) (0.01-0.08) K/mm3 Sodium (136-145) mEq/L Potassium (3.5-5.1) mEq/L Chloride (98-107) mEq/L Carbon Dioxide (21-32) mEq/L Anion Gap (5-15) BUN (7-18) mg/dL Creatinine (0.7-1.3) mg/dL Est Cr Clr Drug Dosing mL/min Estimated GFR (MDRD) (>60) mL/min BUN/Creatinine Ratio (14-18) Glucose (70-99) mg/dL POC Glucose 195 H (70-99) mg/dL Calcium (8.5-10.1) mg/dL Magnesium (1.8-2.4) mg/dL Total Bilirubin (0.2-1.0) mg/dL AST (15-37) U/L ALT (16-63) U/L Alkaline Phosphatase (46-116) U/L Total Protein (6.4-8.2) g/dl Albumin (3.4-5.0) g/dl Globulin gm/dL Albumin/Globulin Ratio (1-2) SARS-CoV-2 RNA (MOUNIKA) (NEGATIVE) MRSA (PCR) Med Orders - Current: Current Medications Acetaminophen (Acetaminophen 325 Mg Tab) 650 mg PO Q4H PRN PRN Reason: Pain (Mild 1-3)/fever Albuterol (Albuterol 6.7 Gm Inhaler) 0 gm INH Q4H PRN PRN Reason: Shortness of Breath Albuterol/Ipratropium (Albuterol/Ipratropium 3.0-0.5 Mg/3 Ml Neb Soln) 3 ml NEB Q4H PRN PRN Reason: Shortness Of Breath/wheezing Last Admin: 03/29/21 11:44 Dose: 3 ml Documented by: Cyclobenzaprine HCl (Cyclobenzaprine 10 Mg Tab) 10 mg PO Q8H PRN PRN Reason: Muscle Spasm - Painful Docusate Sodium (Docusate Sodium 100 Mg Cap) 100 mg PO BID PRN PRN Reason: Constipation Fluticasone Propionate (Fluticasone Propionate Nasal [place] 16 Gm Bottle) 0 gm NASBOTH BID [facility] Heparin Sodium (Porcine) (Heparin Sodium 5,000 Units/Ml Vial) 5,000 units SUBCUT Q8H [facility] Last Admin: 03/28/21 18:00 Dose: 5,000 units Documented by: Lactated Ringer's (Ringers, Lactated) 1,000 mls @ 125 mls/hr IV ASDIRECTED [place] Last Admin: 03/29/21 06:06 Dose: 125 mls/hr Documented by: Insulin Human Regular (Insulin Regular, Human 100 Units/Ml 3 Ml Vial) 0 unit SUBCUT TIDPC [facility]; Protocol Last Admin: 03/29/21 11:47 Dose: 3 unit Documented by: Morphine Sulfate (Morphine 2 Mg/Ml Syringe) 2 mg IVPUSH Q2H PRN PRN Reason: Pain (severe 7-10) Stop: 03/29/21 16:20 Last Admin: 03/29/21 10:32 Dose: 2 mg Documented by: Nicotine (Nicotine 14 Mg/24 Hr Patch) 14 mg TRDERM DAILY [place] Last Admin: 03/29/21 08:27 Dose: 14 mg Documented by: Ondansetron HCl (Ondansetron 4 Mg Tab.Dis) 4 mg PO Q4H PRN PRN Reason: nausea, able to take PO Oxycodone HCl (Oxycodone 5 Mg Tab) 5 mg PO Q4H PRN PRN Reason: Pain (moderate 4-6) Last Admin: 03/29/21 08:21 Dose: 5 mg Documented by: Sodium Chloride (Sodium Chloride 0.9% 10 Ml Syringe) 10 ml FLUSH ASDIRECTED PRN PRN Reason: Keep Vein Open Last Admin: 03/28/21 12:30 Dose: 10 ml Documented by: Temazepam (Temazepam 15 Mg Cap) 15 mg PO BEDTIME PRN PRN Reason: Sleep Last Admin: 03/28/21 23:53 Dose: 15 mg Documented by: Discontinued Medications Bupivacaine HCl (Bupivacaine 0.25% 10 Ml Sdv) Confirm Administered Dose 20 ml .ROUTE .STK-MED ONE Stop: 03/29/21 11:48 Cefazolin Sodium (Cefazolin 1 Gm Vial) Confirm Administered Dose 2 gm .ROUTE .STK-MED ONE Stop: 03/29/21 11:06 Fentanyl (Fentanyl 100 Mcg/2 Ml Sdv) 50 mcg IVPUSH ONETIME ONE Stop: 03/28/21 15:13 Last Admin: 03/28/21 15:22 Dose: 50 mcg Documented by: Fentanyl (Fentanyl 100 Mcg/2 Ml Sdv) Confirm Administered Dose 100 mcg .ROUTE .STK-MED ONE Stop: 03/29/21 11:07 Hydromorphone HCl (Hydromorphone 1 Mg/Ml Syringe) 1 mg IVPUSH ONETIME ONE Stop: 03/28/21 12:17 Last Admin: 03/28/21 12:29 Dose: 1 mg Documented by: Hydromorphone HCl (Hydromorphone 0.5 Mg/0.5 Ml Syringe) 0.5 mg IVPUSH ONETIME ONE Stop: 03/28/21 14:11 Last Admin: 03/28/21 14:00 Dose: 0.5 mg Documented by: Hydromorphone HCl (Hydromorphone 0.5 Mg/0.5 Ml Syringe) Confirm Administered Dose 0.5 mg .ROUTE .STK-MED ONE Stop: 03/29/21 11:09 Magnesium Sulfate 2 gm/ Premix 50 mls @ 25 mls/hr IV ONETIME ONE Stop: 03/29/21 10:59 Last Admin: 03/29/21 08:28 Dose: 25 mls/hr Documented by: Lactated Ringer's (Ringers, Lactated) Confirm Administered Dose 2,000 mls @ as directed .ROUTE .STK-MED ONE Stop: 03/29/21 11:06 Iopamidol (Iopamidol 612 Mg/Ml 100 Ml Bottle) 100 ml IVPUSH ONETIME ONE Stop: 03/28/21 12:46 Last Admin: 03/28/21 13:36 Dose: 100 ml Documented by: Iopamidol (Iopamidol 612 Mg/Ml 50 Ml Sdv) 50 ml IVPUSH ONETIME ONE Stop: 03/28/21 12:46 Last Admin: 03/28/21 13:36 Dose: 25 ml Documented by: Ketamine HCl (Ketamine 500 Mg/10 Ml Mdv) Confirm Administered Dose 500 mg .ROUTE .STK-MED ONE Stop: 03/29/21 11:07 Ketorolac Tromethamine (Ketorolac 30 Mg/Ml Sdv) Confirm Administered Dose 30 mg .ROUTE .STK-MED ONE Stop: 03/29/21 11:06 Midazolam HCl (Midazolam 1 Mg/Ml 2 Ml Sdv) Confirm Administered Dose 2 mg .ROUTE .STK-MED ONE Stop: 03/29/21 11:07 Miscellaneous Medication (Phenylephrine Hcl In 0.9% Nacl 1 Mg/10 Ml Syringe) Confirm Administered Dose 1 mg .ROUTE .STK-MED ONE Stop: 03/29/21 12:55 Ondansetron HCl (Ondansetron 4 Mg/2 Ml Sdv) Confirm Administered Dose 4 mg .ROUTE .STK-MED ONE Stop: 03/29/21 11:06 Oxycodone/Acetaminophen (Acetaminophen/Oxycodone 325-5 Mg Tab) 2 tab PO ONETIME ONE Stop: 03/28/21 16:24 Last Admin: 03/28/21 16:32 Dose: 2 tab Documented by: Propofol (Propofol 200 Mg/20 Ml Sdv) Confirm Administered Dose 400 mg .ROUTE .STK-MED ONE Stop: 03/29/21 11:06 Sodium Chloride (Sodium Chloride 0.9% 10 Ml Syringe) 10 ml FLUSH ONETIME ONE Stop: 03/28/21 12:46 Last Admin: 03/28/21 13:36 Dose: 10 ml Documented by: - Patient Data Lab Results Last 24 hrs: Laboratory Results - last 24 hr 03/28/21 03/28/21 03/29/21 Range/Units 12:01 18:13 02:20 WBC (4.23-9.07) K/mm3 RBC (4.63-6.08) M/mm3 Hgb (13.7-17.5) gm/dl Hct (40.1-51.0) % MCV (79.0-92.2) fl MCH (25.7-32.2) pg MCHC (32.2-35.5) g/dl RDW Std Deviation (35.1-43.9) fL Plt Count (163-337) K/mm3 MPV (9.4-12.3) fl Neut % (Auto) (34.0-67.9) % Lymph % (Auto) (21.8-53.1) % [place] % (Auto) (5.3-12.2) % Eos % (Auto) (0.8-7.0) Baso % (Auto) (0.1-1.2) % Neut # (Auto) (1.78-5.38) K/mm3 Lymph # (Auto) (1.32-3.57) K/mm3 [place] # (Auto) (0.30-0.82) K/mm3 Eos # (Auto) (0.04-0.54) K/mm3 Baso # (Auto) (0.01-0.08) K/mm3 Sodium (136-145) mEq/L Potassium (3.5-5.1) mEq/L Chloride (98-107) mEq/L Carbon Dioxide (21-32) mEq/L Anion Gap (5-15) BUN (7-18) mg/dL Creatinine (0.7-1.3) mg/dL Est Cr Clr Drug Dosing mL/min Estimated GFR (MDRD) (>60) mL/min BUN/Creatinine Ratio (14-18) Glucose (70-99) mg/dL POC Glucose 207 H (70-99) mg/dL Calcium (8.5-10.1) mg/dL Magnesium (1.8-2.4) mg/dL Total Bilirubin (0.2-1.0) mg/dL AST (15-37) U/L ALT (16-63) U/L Alkaline Phosphatase (46-116) U/L Total Protein (6.4-8.2) g/dl Albumin (3.4-5.0) g/dl Globulin gm/dL Albumin/Globulin Ratio (1-2) SARS-CoV-2 RNA (MOUNIKA) Negative (NEGATIVE) MRSA (PCR) Negative 03/29/21 03/29/21 03/29/21 Range/Units 06:11 06:22 06:22 WBC 11.51 H (4.23-9.07) K/mm3 RBC 4.06 L (4.63-6.08) M/mm3 Hgb 13.5 L (13.7-17.5) gm/dl Hct 41.1 (40.1-51.0) % MCV 101.2 H (79.0-92.2) fl MCH 33.3 H (25.7-32.2) pg MCHC 32.8 (32.2-35.5) g/dl RDW Std Deviation 50.2 H (35.1-43.9) fL Plt Count 166 (163-337) K/mm3 MPV 9.7 (9.4-12.3) fl Neut % (Auto) 69.1 H (34.0-67.9) % Lymph % (Auto) 19.7 L (21.8-53.1) % [place] % (Auto) 10.2 (5.3-12.2) % Eos % (Auto) 0.6 L (0.8-7.0) Baso % (Auto) 0.2 (0.1-1.2) % Neut # (Auto) 7.96 H (1.78-5.38) K/mm3 Lymph # (Auto) 2.27 (1.32-3.57) K/mm3 [place] # (Auto) 1.17 H (0.30-0.82) K/mm3 Eos # (Auto) 0.07 (0.04-0.54) K/mm3 Baso # (Auto) 0.02 (0.01-0.08) K/mm3 Sodium 141 (136-145) mEq/L Potassium 4.1 (3.5-5.1) mEq/L Chloride 104 (98-107) mEq/L Carbon Dioxide 29 (21-32) mEq/L Anion Gap 12.1 (5-15) BUN 11 (7-18) mg/dL Creatinine 0.9 (0.7-1.3) mg/dL Est Cr Clr Drug Dosing 85.10 mL/min Estimated GFR (MDRD) > 60 (>60) mL/min BUN/Creatinine Ratio 12.2 L (14-18) Glucose 185 H (70-99) mg/dL POC Glucose 187 H (70-99) mg/dL Calcium 8.5 (8.5-10.1) mg/dL Magnesium 1.7 L (1.8-2.4) mg/dL Total Bilirubin 1.0 (0.2-1.0) mg/dL AST 34 (15-37) U/L ALT 52 (16-63) U/L Alkaline Phosphatase 88 (46-116) U/L Total Protein 6.9 (6.4-8.2) g/dl Albumin 3.5 (3.4-5.0) g/dl Globulin 3.4 gm/dL Albumin/Globulin Ratio 1.0 (1-2) SARS-CoV-2 RNA (MOUNIKA) (NEGATIVE) MRSA (PCR) 03/29/21 Range/Units 11:08 WBC (4.23-9.07) K/mm3 RBC (4.63-6.08) M/mm3 Hgb (13.7-17.5) gm/dl Hct (40.1-51.0) % MCV (79.0-92.2) fl MCH (25.7-32.2) pg MCHC (32.2-35.5) g/dl RDW Std Deviation (35.1-43.9) fL Plt Count (163-337) K/mm3 MPV (9.4-12.3) fl Neut % (Auto) (34.0-67.9) % Lymph % (Auto) (21.8-53.1) % [place] % (Auto) (5.3-12.2) % Eos % (Auto) (0.8-7.0) Baso % (Auto) (0.1-1.2) % Neut # (Auto) (1.78-5.38) K/mm3 Lymph # (Auto) (1.32-3.57) K/mm3 [place] # (Auto) (0.30-0.82) K/mm3 Eos # (Auto) (0.04-0.54) K/mm3 Baso # (Auto) (0.01-0.08) K/mm3 Sodium (136-145) mEq/L Potassium (3.5-5.1) mEq/L Chloride (98-107) mEq/L Carbon Dioxide (21-32) mEq/L Anion Gap (5-15) BUN (7-18) mg/dL Creatinine (0.7-1.3) mg/dL Est Cr Clr Drug Dosing mL/min Estimated GFR (MDRD) (>60) mL/min BUN/Creatinine Ratio (14-18) Glucose (70-99) mg/dL POC Glucose 195 H (70-99) mg/dL Calcium (8.5-10.1) mg/dL Magnesium (1.8-2.4) mg/dL Total Bilirubin (0.2-1.0) mg/dL AST (15-37) U/L ALT (16-63) U/L Alkaline Phosphatase (46-116) U/L Total Protein (6.4-8.2) g/dl Albumin (3.4-5.0) g/dl Globulin gm/dL Albumin/Globulin Ratio (1-2) SARS-CoV-2 RNA (MOUNIKA) (NEGATIVE) MRSA (PCR) Result Diagrams: 03/29/21 06:22 03/29/21 06:22 Sepsis Event Note - Focused Exam Vital Signs: Vital Signs Temp Pulse Resp BP Pulse Ox Pulse Ox 03/29/21 11:44 100 03/29/21 11:10 36.9 C 80 20 157/80 H 95 03/29/21 07:43 36.4 C 86 20 148/91 H 94 L 03/29/21 04:54 36.8 C 86 20 151/85 H 95 - Problem List & Annotations (1) Closed intertrochanteric fracture of left hip SNOMED Code(s): 01547328, 83605991416229727 Code(s): S72.142A - DISPLACED INTERTROCHANTERIC FRACTURE OF LEFT FEMUR, INIT Status: Acute Priority: High Current Visit: Yes Qualifiers: Encounter type: initial encounter Fracture alignment: displaced Qualified Code(s): S72.142A - Displaced intertrochanteric fracture of left femur, initial encounter for closed fracture (2) Thoracic ascending aortic aneurysm Status: Chronic Priority: Medium Current Visit: Yes (3) COPD (chronic obstructive pulmonary disease) SNOMED Code(s): 99254673 Code(s): J44.9 - CHRONIC OBSTRUCTIVE PULMONARY DISEASE, UNSPECIFIED Status: Chronic Priority: Medium Current Visit: Yes Qualifiers: COPD type: chronic bronchitis Chronic bronchitis type: unspecified Qualified Code(s): J42 - Unspecified chronic bronchitis (4) Dyslipidemia SNOMED Code(s): 857078248 Code(s): E78.5 - HYPERLIPIDEMIA, UNSPECIFIED Status: Chronic Priority: Medium Current Visit: Yes (5) Hypertension SNOMED Code(s): 85543172 Code(s): I10 - ESSENTIAL (PRIMARY) HYPERTENSION Status: Chronic Priority: High Current Visit: Yes Qualifiers: Hypertension type: primary hypertension Qualified Code(s): I10 - Essential (primary) hypertension (6) Diabetes mellitus type 2 in obese SNOMED Code(s): 17992766 Code(s): E11.69 - TYPE 2 DIABETES MELLITUS WITH OTHER SPECIFIED COMPLICATION; E66.9 - OBESITY, UNSPECIFIED Status: Chronic Priority: High Current Visit: Yes (7) Tobacco dependency SNOMED Code(s): 18298563 Code(s): F17.200 - NICOTINE DEPENDENCE, UNSPECIFIED, UNCOMPLICATED Status: Chronic Priority: Medium Current Visit: Yes - My Orders Last 24 Hours: My Active Orders 03/28/21 16:20 Patient Status [ADT] Routine Cardiac Monitoring [RC] CONTINUOUS Oxygen Therapy [RC] PRN RT Aerosol Therapy [RC] ASDIRECTED Up ad Mandi [RC] ASDIRECTED VTE/DVT Education [RC] PER UNIT ROUTINE Vital Signs [RC] Q4HR Acetaminophen [TylenoL] 650 mg PO Q4H PRN Albuterol/Ipratropium [DuoNeb 3.0-0.5 MG/3 ML] 3 ml NEB Q4H PRN Docusate Sodium [Colace] 100 mg PO BID PRN Morphine 2 mg IVPUSH Q2H PRN Ondansetron [Zofran ODT] 4 mg PO Q4H PRN Temazepam [Restoril] 15 mg PO BEDTIME PRN oxyCODONE 5 mg PO Q4H PRN Resuscitation Status Routine 03/28/21 16:24 Blood Glucose Check, Bedside [RC] TIDMEALS 03/28/21 16:30 Heparin Sodium 5,000 units SUBCUT Q8H Nicotine [Habitrol] 14 mg TRDERM DAILY 03/28/21 16:50 OT Evaluation and Treatment [CONS] Routine PT Evaluation and Treatment [CONS] Routine 03/28/21 18:40 Notify Provider Consults [RC] ASDIRECTED Consult to Physician [CONS] Routine Cyclobenzaprine [Flexeril] 10 mg PO Q8H PRN 03/28/21 19:00 Insulin Regular, Human [HumuLIN R] See Protocol SUBCUT TIDPC 03/29/21 02:20 MRSA CULTURE [MREF] Routine 03/29/21 Breakfast NPO Now [Nothing per Oral Now Diet] [DIET] - Free Text/Narrative Note: I have seen and examined the patient independently of Prashanth Cheng PA-C. I have discussed the case with him and reviewed and agree with the plan of care as outlined by him. Please see orders.
[2021-03-29] MEDS ORDERED: Ondansetron 4 MG/2 ML SDV ONE (11:05)
[2021-03-29] MEDS ORDERED: Ketorolac 30 MG/ML SDV ONE (11:05)
[2021-03-29] MEDS ORDERED: ceFAZolin 1 GM Vial ONE (11:05)
[2021-03-29] MEDS ORDERED: Propofol 200 MG/20 ML SDV ONE (11:05)
[2021-03-29] MEDS ORDERED: Lactated Ringers 2,000 ML ONE (11:05)
[2021-03-29] MEDS ORDERED: fentaNYL 100 MCG/2 ML SDV ONE (11:06)
[2021-03-29] MEDS ORDERED: Ketamine 500 mg/10 ML MDV ONE (11:06)
[2021-03-29] MEDS ORDERED: Midazolam 1 MG/ML 2 ML SDV ONE (11:06)
[2021-03-29] MEDS ORDERED: HYDROmorphone 0.5 MG/0.5 ML Syringe ONE (11:08)
[2021-03-29] MEDS ORDERED: Bupivacaine 0.25% 10 ML SDV ONE (11:47)
--- NOTE | 2021-03-29 12:31 | PCM.EKG ---
#1 Interpretation EKG Date: 03/28/21 Time: 17:19 Rhythm: NSR Rate (Beats/Min): 88 [place]: Normal P-Wave: Present QRS: Normal ST-T: Normal QT: Normal Comparison: NA - No Prior EKG (Borderline T-wave)
--- NOTE | 2021-03-29 14:05 | PCM.POSTAN ---
POST ANESTHESIA ASSESSMENT - MENTAL STATUS Mental Status: Alert, Oriented - VITAL SIGNS Vital Signs: Last Vital Signs Temp 36.9 C 03/29/21 11:10 Pulse 80 03/29/21 11:10 Resp 20 03/29/21 11:10 BP 157/80 H 03/29/21 11:10 Pulse Ox 100 03/29/21 11:44 - RESPIRATORY Respiratory Status: Respiratory Rate WNL, Airway Patent, O2 Saturation Stable, Supplemental Oxygen - CARDIOVASCULAR CV Status: Pulse Rate WNL, Blood Pressure Stable - GASTROINTESTINAL GI Status: No Symptoms - PAIN Pain Score: 0 - POST OP HYDRATION Hydration Status: Adequate & Stable
--- NOTE | 2021-03-29 14:14 | PCM48HPAN ---
Post Anesthesia Note - EVALUATION WITHIN 48HRS OF ANESTHETIC Vital Signs in Normal Range: Yes Patient Participated in Evaluation: Yes Respiratory Function Stable: Yes Airway Patent: Yes Cardiovascular Function Stable: Yes Hydration Status Stable: Yes Pain Control Satisfactory: Yes Nausea and Vomiting Control Satisfactory: Yes Mental Status Recovered: Yes Vital Signs: Last Vital Signs Temp 36.9 C 03/29/21 11:10 Pulse 80 03/29/21 11:10 Resp 20 03/29/21 11:10 BP 157/80 H 03/29/21 11:10 Pulse Ox 100 03/29/21 11:44
--- NOTE | 2021-03-29 14:32 | CR ---
Left hip: 14 fluoroscopic spot views were obtained of the left hip utilizing C-arm device. Comparison: Prior left femur study of 03/28/21. Study shows placement of compression screw and intramedullary malgorzata within the left hip and femur. This affixes the previous intertrochanteric fracture. Fluoroscopy time is given as 110.1 seconds. Impression: 1. Procedural study as described above. Diagnostic code #2
[2021-03-29] MEDS ORDERED: Magnesium Hydroxide 400 MG/5 ML Susp 30 ML Cup PO PRN (15:10)
[2021-03-29] MEDS ORDERED: Ondansetron 4 MG/2 ML SDV IVPUSH PRN (15:10)
[2021-03-29] MEDS ORDERED: Naloxone 0.4 MG/ML SDV IVPUSH PRN (15:10)
[2021-03-29] MEDS ORDERED: Bisacodyl 5 MG Tab PO PRN (15:10)
[2021-03-29] MEDS ORDERED: Sennosides 8.6 MG Tab PO PRN (15:10)
[2021-03-29] MEDS: Cyclobenzaprine 10 MG Tab PO PRN (16:47)
[2021-03-29] MEDS: ceFAZolin 2 GM in Premix Bag 1 BAG IV SCH (20:30)
[2021-03-29] MEDS: Fluticasone Propionate Nasal Spray 16 GM Bottle NASBOTH SCH (20:33)
[2021-03-30] MEDS: Heparin Sodium 5,000 Units/ML Vial SUBCUT SCH ×2 (01:25→08:10)
[2021-03-30] MEDS: ceFAZolin 2 GM in Premix Bag 1 BAG IV SCH ×2 (04:46→12:44)
[2021-03-30] MEDS ORDERED: Magnesium Hydroxide 400 MG/5 ML Susp 30 ML Cup PO ONE (06:00)
[2021-03-30] MEDS ORDERED: Magnesium Oxide 400 MG Tab PO ONE (07:38)
--- NOTE | 2021-03-30 07:40 | PCM48HPAN ---
Post Anesthesia Note - EVALUATION WITHIN 48HRS OF ANESTHETIC Vital Signs in Normal Range: Yes Patient Participated in Evaluation: Yes Respiratory Function Stable: Yes Airway Patent: Yes Cardiovascular Function Stable: Yes Hydration Status Stable: Yes Pain Control Satisfactory: Yes (put stop order to 20 hour hold on narcotics) Nausea and Vomiting Control Satisfactory: Yes Mental Status Recovered: Yes Vital Signs: Last Vital Signs Temp 36.3 C 03/30/21 00:38 Pulse 91 03/30/21 00:38 Resp 22 H 03/30/21 00:38 BP 138/86 03/30/21 00:38 Pulse Ox 93 L 03/30/21 06:11 - COMMENTS/OBSERVATIONS Free Text/Narrative:: no anesthesia complications noted
[2021-03-30] MEDS: oxyCODONE 5 MG Tab PO PRN (08:11)
[2021-03-30] MEDS: Fluticasone Propionate Nasal Spray 16 GM Bottle NASBOTH SCH ×2 (08:14→20:41)
[2021-03-30] MEDS: Nicotine 14 MG/24 Hr Patch TRDERM SCH (08:14)
[2021-03-30] MEDS: Insulin Regular, Human 100 Units/ML 3 ML Vial SUBCUT SCH ×3 (08:15→18:01)
[2021-03-30] MEDS: Lisinopril 5 MG Tab PO SCH (10:06)
[2021-03-30] MEDS: Aspirin 325 MG Tab.EC PO SCH ×2 (10:06→20:38)
--- NOTE | 2021-03-30 10:42 | PCM.PN ---
- General Info Date of Service: 03/30/21 Functional Status: Reports: Tolerating Diet, Ambulating, Urinating, Incentive Spirometry. Denies: Pain Controlled (Reports rather severe pain), New Symptoms - Review of Systems General: Reports: Weakness. Denies: Fever, Fatigue, Malaise, Chills HEENT: Reports: No Symptoms. Denies: Headaches, Sore Throat Pulmonary: Reports: Shortness of Breath. Denies: Cough, Sputum, Wheezing Cardiovascular: Reports: Dyspnea on Exertion. Denies: Chest Pain, Palpitations, Edema Gastrointestinal: Reports: No Symptoms. Denies: Abdominal Pain, Constipation, Diarrhea, Nausea, Vomiting Genitourinary: Reports: No Symptoms. Denies: Pain Musculoskeletal: Reports: Leg Pain (left) Skin: Reports: No Symptoms Neurological: Reports: Trouble Speaking (Chronic raspy voice), Difficulty Walking, Weakness, Gait Disturbance. Denies: Confusion, Dizziness, Headache, Numbness, Seizure, Syncope, Tingling Psychiatric: Reports: No Symptoms - Patient Data Vitals - Most Recent: Last Vital Signs Temp 98.2 F 03/30/21 07:24 Pulse 86 03/30/21 07:53 Resp 24 H 03/30/21 07:24 BP 119/76 03/30/21 10:06 Pulse Ox 95 03/30/21 08:54 Weight - Most Recent: 253 lb 1.6 oz I&O - Last 24 Hours: Intake & Output 03/29/21 03/30/21 03/30/21 22:59 06:59 14:59 Intake Total 1721 600 Output Total 1000 1300 Balance 721 -700 Lab Results Last 24 Hours: Laboratory Results - last 24 hr 03/29/21 03/29/21 03/30/21 Range/Units 11:08 17:15 06:15 WBC 10.36 H (4.23-9.07) K/mm3 RBC 3.57 L (4.63-6.08) M/mm3 Hgb 11.7 L D (13.7-17.5) gm/dl Hct 36.4 L (40.1-51.0) % MCV 102.0 H (79.0-92.2) fl MCH 32.8 H (25.7-32.2) pg MCHC 32.1 L (32.2-35.5) g/dl RDW Std Deviation 49.0 H (35.1-43.9) fL Plt Count 158 L (163-337) K/mm3 MPV 10.1 (9.4-12.3) fl Neut % (Auto) 69.2 H (34.0-67.9) % Lymph % (Auto) 17.0 L (21.8-53.1) % [place] % (Auto) 12.3 H (5.3-12.2) % Eos % (Auto) 1.1 (0.8-7.0) Baso % (Auto) 0.2 (0.1-1.2) % Neut # (Auto) 7.18 H (1.78-5.38) K/mm3 Lymph # (Auto) 1.76 (1.32-3.57) K/mm3 [place] # (Auto) 1.27 H (0.30-0.82) K/mm3 Eos # (Auto) 0.11 (0.04-0.54) K/mm3 Baso # (Auto) 0.02 (0.01-0.08) K/mm3 Sodium (136-145) mEq/L Potassium (3.5-5.1) mEq/L Chloride (98-107) mEq/L Carbon Dioxide (21-32) mEq/L Anion Gap (5-15) BUN (7-18) mg/dL Creatinine (0.7-1.3) mg/dL Est Cr Clr Drug Dosing mL/min Estimated GFR (MDRD) (>60) mL/min BUN/Creatinine Ratio (14-18) Glucose (70-99) mg/dL POC Glucose 195 H 153 H (70-99) mg/dL Calcium (8.5-10.1) mg/dL Magnesium (1.8-2.4) mg/dL Total Bilirubin (0.2-1.0) mg/dL AST (15-37) U/L ALT (16-63) U/L Alkaline Phosphatase (46-116) U/L Total Protein (6.4-8.2) g/dl Albumin (3.4-5.0) g/dl Globulin gm/dL Albumin/Globulin Ratio (1-2) 03/30/21 03/30/21 Range/Units 06:15 06:42 WBC (4.23-9.07) K/mm3 RBC (4.63-6.08) M/mm3 Hgb (13.7-17.5) gm/dl Hct (40.1-51.0) % MCV (79.0-92.2) fl MCH (25.7-32.2) pg MCHC (32.2-35.5) g/dl RDW Std Deviation (35.1-43.9) fL Plt Count (163-337) K/mm3 MPV (9.4-12.3) fl Neut % (Auto) (34.0-67.9) % Lymph % (Auto) (21.8-53.1) % [place] % (Auto) (5.3-12.2) % Eos % (Auto) (0.8-7.0) Baso % (Auto) (0.1-1.2) % Neut # (Auto) (1.78-5.38) K/mm3 Lymph # (Auto) (1.32-3.57) K/mm3 Linn # (Auto) (0.30-0.82) K/mm3 Eos # (Auto) (0.04-0.54) K/mm3 Baso # (Auto) (0.01-0.08) K/mm3 Sodium 139 (136-145) mEq/L Potassium 4.3 (3.5-5.1) mEq/L Chloride 102 (98-107) mEq/L Carbon Dioxide 29 (21-32) mEq/L Anion Gap 12.3 (5-15) BUN 12 (7-18) mg/dL Creatinine 1.1 (0.7-1.3) mg/dL Est Cr Clr Drug Dosing 69.63 mL/min Estimated GFR (MDRD) > 60 (>60) mL/min BUN/Creatinine Ratio 10.9 L (14-18) Glucose 205 H (70-99) mg/dL POC Glucose 195 H (70-99) mg/dL Calcium 8.4 L (8.5-10.1) mg/dL Magnesium 1.9 (1.8-2.4) mg/dL Total Bilirubin 0.8 (0.2-1.0) mg/dL AST 32 (15-37) U/L ALT 40 (16-63) U/L Alkaline Phosphatase 85 (46-116) U/L Total Protein 6.7 (6.4-8.2) g/dl Albumin 3.0 L (3.4-5.0) g/dl Globulin 3.7 gm/dL Albumin/Globulin Ratio 0.8 L (1-2) Med Orders - Current: Current Medications Acetaminophen (Acetaminophen 325 Mg Tab) 650 mg PO Q4H PRN PRN Reason: Pain (Mild 1-3)/fever Last Admin: 03/29/21 20:32 Dose: 650 mg Documented by: Albuterol (Albuterol 6.7 Gm Inhaler) 0 gm INH Q4H PRN PRN Reason: Shortness of Breath Albuterol/Ipratropium (Albuterol/Ipratropium 3.0-0.5 Mg/3 Ml Neb Soln) 3 ml NEB Q4H PRN PRN Reason: Shortness Of Breath/wheezing Last Admin: 03/29/21 11:44 Dose: 3 ml Documented by: Aspirin (Aspirin 325 Mg Tab.Ec) 325 mg PO BID [facility] Last Admin: 03/30/21 10:06 Dose: 325 mg Documented by: Atorvastatin Calcium (Atorvastatin 20 Mg Tab) 20 mg PO BEDTIME [facility] Bisacodyl (Bisacodyl 5 Mg Tab) 5 mg PO DAILY PRN PRN Reason: Constipation Cyclobenzaprine HCl (Cyclobenzaprine 10 Mg Tab) 10 mg PO Q8H PRN PRN Reason: Muscle Spasm - Painful Last Admin: 03/29/21 16:47 Dose: 10 mg Documented by: Docusate Sodium (Docusate Sodium 100 Mg Cap) 100 mg PO BID PRN PRN Reason: Constipation Fluticasone Propionate (Fluticasone Propionate Nasal Newborn 16 Gm Bottle) 0 gm NASBOTH BID [facility] Last Admin: 03/30/21 08:14 Dose: 1 spray Documented by: Cefazolin Sodium/Dextrose 2 gm (/ Premix) 50 mls @ 100 mls/hr IV Q8H [facility] Stop: 03/30/21 13:29 Last Admin: 03/30/21 04:46 Dose: 100 mls/hr Documented by: Insulin Human Regular (Insulin Regular, Human 100 Units/Ml 3 Ml Vial) [facility]; Protocol Last Admin: 03/30/21 08:15 Dose: 3 unit Documented by: Lisinopril (Lisinopril 5 Mg Tab) 5 mg PO DAILY [facility] Last Admin: 03/30/21 10:06 Dose: 5 mg Documented by: Magnesium Hydroxide (Magnesium Hydroxide 400 Mg/5 Ml Susp 30 Ml Cup) 30 ml PO BID PRN PRN Reason: Constipation Naloxone HCl (Naloxone 0.4 Mg/Ml Sdv) 0.1 mg IVPUSH Q5M PRN PRN Reason: Oversedation Nicotine (Nicotine 14 Mg/24 Hr Patch) 14 mg TRDERM DAILY [facility] Last Admin: 03/30/21 08:14 Dose: 14 mg Documented by: Ondansetron HCl (Ondansetron 4 Mg Tab.Dis) 4 mg PO Q4H PRN PRN Reason: nausea, able to take PO Ondansetron HCl (Ondansetron 4 Mg/2 Ml Sdv) 4 mg IVPUSH Q6H PRN PRN Reason: Nausea/Vomiting Oxycodone HCl (Oxycodone 5 Mg Tab) 10 mg PO Q4H PRN PRN Reason: Pain Last Admin: 03/30/21 08:11 Dose: 10 mg Documented by: Senna (Sennosides 8.6 Mg Tab) 8.6 mg PO BID PRN PRN Reason: Constipation Sodium Chloride (Sodium Chloride 0.9% 10 Ml Syringe) 10 ml FLUSH ASDIRECTED PRN PRN Reason: Keep Vein Open Last Admin: 03/28/21 12:30 Dose: 10 ml Documented by: Temazepam (Temazepam 15 Mg Cap) 15 mg PO BEDTIME PRN PRN Reason: Sleep Last Admin: 03/28/21 23:53 Dose: 15 mg Documented by: Discontinued Medications Bupivacaine HCl (Bupivacaine 0.25% 10 Ml Sdv) Confirm Administered Dose 20 ml .ROUTE .STK-MED ONE Stop: 03/29/21 11:48 Last Admin: 03/29/21 13:53 Dose: 20 ml Documented by: Cefazolin Sodium (Cefazolin 1 Gm Vial) Confirm Administered Dose 2 gm .ROUTE .STK-MED ONE Stop: 03/29/21 11:06 Fentanyl (Fentanyl 100 Mcg/2 Ml Sdv) 50 mcg IVPUSH ONETIME ONE Stop: 03/28/21 15:13 Last Admin: 03/28/21 15:22 Dose: 50 mcg Documented by: Fentanyl (Fentanyl 100 Mcg/2 Ml Sdv) Confirm Administered Dose 100 mcg .ROUTE .STK-MED ONE Stop: 03/29/21 11:07 Heparin Sodium (Porcine) (Heparin Sodium 5,000 Units/Ml Vial) 5,000 units SUBCUT Q8H [facility] Last Admin: 03/30/21 08:10 Dose: 5,000 units Documented by: Hydromorphone HCl (Hydromorphone 1 Mg/Ml Syringe) 1 mg IVPUSH ONETIME ONE Stop: 03/28/21 12:17 Last Admin: 03/28/21 12:29 Dose: 1 mg Documented by: Hydromorphone HCl (Hydromorphone 0.5 Mg/0.5 Ml Syringe) 0.5 mg IVPUSH ONETIME ONE Stop: 03/28/21 14:11 Last Admin: 03/28/21 14:00 Dose: 0.5 mg Documented by: Hydromorphone HCl (Hydromorphone 0.5 Mg/0.5 Ml Syringe) Confirm Administered Dose 0.5 mg .ROUTE .STK-MED ONE Stop: 03/29/21 11:09 Lactated Ringer's (Ringers, Lactated) 1,000 mls @ 125 mls/hr IV ASDIRECTED [facility] Last Admin: 03/29/21 17:25 Dose: 125 mls/hr Documented by: Magnesium Sulfate 2 gm/ Premix 50 mls @ 25 mls/hr IV ONETIME ONE Stop: 03/29/21 10:59 Last Admin: 03/29/21 08:28 Dose: 25 mls/hr Documented by: Lactated Ringer's (Ringers, Lactated) Confirm Administered Dose 2,000 mls @ as directed .ROUTE .STK-MED ONE Stop: 03/29/21 11:06 Cefazolin Sodium/Dextrose (Ancef 2 Gm/50 Ml) Confirm Administered Dose 50 mls @ as directed .ROUTE .STK-MED ONE Stop: 03/29/21 20:10 Last Admin: 03/29/21 20:18 Dose: Not Given Documented by: Cefazolin Sodium/Dextrose (Ancef 2 Gm/50 Ml) Confirm Administered Dose 50 mls @ as directed .ROUTE .STK-MED ONE Stop: 03/30/21 04:23 Last Admin: 03/30/21 07:50 Dose: Not Given Documented by: Iopamidol (Iopamidol 612 Mg/Ml 100 Ml Bottle) 100 ml IVPUSH ONETIME ONE Stop: 03/28/21 12:46 Last Admin: 03/28/21 13:36 Dose: 100 ml Documented by: Iopamidol (Iopamidol 612 Mg/Ml 50 Ml Sdv) 50 ml IVPUSH ONETIME ONE Stop: 03/28/21 12:46 Last Admin: 03/28/21 13:36 Dose: 25 ml Documented by: Ketamine HCl (Ketamine 500 Mg/10 Ml Mdv) Confirm Administered Dose 500 mg .ROUTE .STK-MED ONE Stop: 03/29/21 11:07 Ketorolac Tromethamine (Ketorolac 30 Mg/Ml Sdv) Confirm Administered Dose 30 mg .ROUTE .STK-MED ONE Stop: 03/29/21 11:06 Magnesium Hydroxide (Magnesium Hydroxide 400 Mg/5 Ml Susp 30 Ml Cup) 30 ml PO ONETIME ONE Stop: 03/30/21 06:01 Last Admin: 03/30/21 05:37 Dose: 30 ml Documented by: Magnesium Oxide (Magnesium Oxide 400 Mg Tab) 800 mg PO ONETIME ONE Stop: 03/30/21 07:39 Last Admin: 03/30/21 08:10 Dose: 800 mg Documented by: Midazolam HCl (Midazolam 1 Mg/Ml 2 Ml Sdv) Confirm Administered Dose 2 mg .ROUTE .STK-MED ONE Stop: 03/29/21 11:07 Miscellaneous Medication (Phenylephrine Hcl In 0.9% Nacl 1 Mg/10 Ml Syringe) Confirm Administered Dose 1 mg .ROUTE .STK-MED ONE Stop: 03/29/21 12:55 Morphine Sulfate (Morphine 2 Mg/Ml Syringe) 2 mg IVPUSH Q2H PRN PRN Reason: Pain (severe 7-10) Stop: 03/29/21 16:20 Last Admin: 03/29/21 10:32 Dose: 2 mg Documented by: Ondansetron HCl (Ondansetron 4 Mg/2 Ml Sdv) Confirm Administered Dose 4 mg . ROUTE .STK-MED ONE Stop: 03/29/21 11:06 Oxycodone HCl (Oxycodone 5 Mg Tab) 5 mg PO Q4H PRN PRN Reason: Pain (moderate 4-6) Last Admin: 03/29/21 17:21 Dose: 5 mg Documented by: Oxycodone/Acetaminophen (Acetaminophen/Oxycodone 325-5 Mg Tab) 2 tab PO ONETIME ONE Stop: 03/28/21 16:24 Last Admin: 03/28/21 16:32 Dose: 2 tab Documented by: Propofol (Propofol 200 Mg/20 Ml Sdv) Confirm Administered Dose 400 mg .ROUTE .STK-MED ONE Stop: 03/29/21 11:06 Sodium Chloride (Sodium Chloride 0.9% 10 Ml Syringe) 10 ml FLUSH ONETIME ONE Stop: 03/28/21 12:46 Last Admin: 03/28/21 13:36 Dose: 10 ml Documented by: - Exam Quality Assessment: Supplemental Oxygen (1L), DVT Prophylaxis. No: Urine Catheter General: Alert, Oriented, Cooperative, No Acute Distress HEENT: Pupils Equal, Pupils Reactive, Mucous Membr. Moist/[place] Neck: Supple, Trachea Midline Lungs: Normal Respiratory Effort, Decreased Breath Sounds, Wheezing Cardiovascular: Regular Rate, Regular Rhythm GI/Abdominal Exam: Normal Bowel Sounds, Soft, Non-Tender, No Distention (Male) Exam: Deferred Back Exam: Normal Inspection, Full Range of Motion Extremities: Normal Range of Motion, Non-Tender, No Pedal Edema, Leg Pain (left), Limited Range of Motion Peripheral Pulses: 2+: Radial (L), Radial (R), Dorsalis Pedis (L), Dorsalis Pedis (R) Skin: Warm, Dry, Intact Neurological: No New Focal Deficit Psy/Mental Status: Alert, Normal Affect, Normal Mood - Patient Data Lab Results Last 24 hrs: Laboratory Results - last 24 hr 03/29/21 03/29/21 03/30/21 Range/Units 11:08 17:15 06:15 WBC 10.36 H (4.23-9.07) K/mm3 RBC 3.57 L (4.63-6.08) M/mm3 Hgb 11.7 L D (13.7-17.5) gm/dl Hct 36.4 L (40.1-51.0) % MCV 102.0 H (79.0-92.2) fl MCH 32.8 H (25.7-32.2) pg MCHC 32.1 L (32.2-35.5) g/dl RDW Std Deviation 49.0 H (35.1-43.9) fL Plt Count 158 L (163-337) K/mm3 MPV 10.1 (9.4-12.3) fl Neut % (Auto) 69.2 H (34.0-67.9) % Lymph % (Auto) 17.0 L (21.8-53.1) % [place] % (Auto) 12.3 H (5.3-12.2) % Eos % (Auto) 1.1 (0.8-7.0) Baso % (Auto) 0.2 (0.1-1.2) % Neut # (Auto) 7.18 H (1.78-5.38) K/mm3 Lymph # (Auto) 1.76 (1.32-3.57) K/mm3 [place]inn # (Auto) 1.27 H (0.30-0.82) K/mm3 Eos # (Auto) 0.11 (0.04-0.54) K/mm3 Baso # (Auto) 0.02 (0.01-0.08) K/mm3 Sodium (136-145) mEq/L Potassium (3.5-5.1) mEq/L Chloride (98-107) mEq/L Carbon Dioxide (21-32) mEq/L Anion Gap (5-15) BUN (7-18) mg/dL Creatinine (0.7-1.3) mg/dL Est Cr Clr Drug Dosing mL/min Estimated GFR (MDRD) (>60) mL/min BUN/Creatinine Ratio (14-18) Glucose (70-99) mg/dL POC Glucose 195 H 153 H (70-99) mg/dL Calcium (8.5-10.1) mg/dL Magnesium (1.8-2.4) mg/dL Total Bilirubin (0.2-1.0) mg/dL AST (15-37) U/L ALT (16-63) U/L Alkaline Phosphatase (46-116) U/L Total Protein (6.4-8.2) g/dl Albumin (3.4-5.0) g/dl Globulin gm/dL Albumin/Globulin Ratio (1-2) 03/30/21 03/30/21 Range/Units 06:15 06:42 WBC (4.23-9.07) K/mm3 RBC (4.63-6.08) M/mm3 Hgb (13.7-17.5) gm/dl Hct (40.1-51.0) % MCV (79.0-92.2) fl MCH (25.7-32.2) pg MCHC (32.2-35.5) g/dl RDW Std Deviation (35.1-43.9) fL Plt Count (163-337) K/mm3 MPV (9.4-12.3) fl Neut % (Auto) (34.0-67.9) % Lymph % (Auto) (21.8-53.1) % [place] % (Auto) (5.3-12.2) % Eos % (Auto) (0.8-7.0) Baso % (Auto) (0.1-1.2) % Neut # (Auto) (1.78-5.38) K/mm3 Lymph # (Auto) (1.32-3.57) K/mm3 [place]inn # (Auto) (0.30-0.82) K/mm3 Eos # (Auto) (0.04-0.54) K/mm3 Baso # (Auto) (0.01-0.08) K/mm3 Sodium 139 (136-145) mEq/L Potassium 4.3 (3.5-5.1) mEq/L Chloride 102 (98-107) mEq/L Carbon Dioxide 29 (21-32) mEq/L Anion Gap 12.3 (5-15) BUN 12 (7-18) mg/dL Creatinine 1.1 (0.7-1.3) mg/dL Est Cr Clr Drug Dosing 69.63 mL/min Estimated GFR (MDRD) > 60 (>60) mL/min BUN/Creatinine Ratio 10.9 L (14-18) Glucose 205 H (70-99) mg/dL POC Glucose 195 H (70-99) mg/dL Calcium 8.4 L (8.5-10.1) mg/dL Magnesium 1.9 (1.8-2.4) mg/dL Total Bilirubin 0.8 (0.2-1.0) mg/dL AST 32 (15-37) U/L ALT 40 (16-63) U/L Alkaline Phosphatase 85 (46-116) U/L Total Protein 6.7 (6.4-8.2) g/dl Albumin 3.0 L (3.4-5.0) g/dl Globulin 3.7 gm/dL Albumin/Globulin Ratio 0.8 L (1-2) Result Diagrams: 03/30/21 06:15 03/30/21 06:15 Sepsis Event Note - Evaluation Sepsis Screening Result: No Definite Risk - Focused Exam Vital Signs: Vital Signs Temp Pulse Resp BP Pulse Ox Pulse Ox 03/30/21 10:06 119/76 03/30/21 08:54 95 03/30/21 07:53 86 94 L 03/30/21 07:30 86 137/87 96 03/30/21 07:24 98.2 F 79 24 H 90 L 03/30/21 06:11 93 L 03/30/21 00:38 97.3 F 91 22 H 138/86 95 - Problem List & Annotations (1) Status post-operative repair of closed fracture of left hip SNOMED Code(s): 968376065 Code(s): Z98.890 - OTHER SPECIFIED POSTPROCEDURAL STATES; Z87.81 - PERSONAL HISTORY OF (HEALED) TRAUMATIC FRACTURE Status: Acute Priority: High Current Visit: Yes (2) Closed intertrochanteric fracture of left hip SNOMED Code(s): 48171247, 20314386257576492 Code(s): S72.142A - DISPLACED INTERTROCHANTERIC FRACTURE OF LEFT FEMUR, INIT Status: Acute Priority: High Current Visit: Yes Qualifiers: Encounter type: initial encounter Fracture alignment: displaced Qualified Code(s): S72.142A - Displaced intertrochanteric fracture of left femur, initial encounter for closed fracture (3) Fall SNOMED Code(s): 2012479, 245515597 Code(s): W19.XXXA - UNSPECIFIED FALL, INITIAL ENCOUNTER Status: Acute Priority: High Current Visit: Yes Qualifiers: Encounter type: initial encounter Qualified Code(s): W19.XXXA - Unspecified fall, initial encounter (4) Hypomagnesemia SNOMED Code(s): 469730813 Code(s): E83.42 - HYPOMAGNESEMIA Status: Acute Priority: High Current Visit: Yes (5) Obesity (BMI 30-39.9) SNOMED Code(s): 795239786, 890664130 Code(s): E66.9 - OBESITY, UNSPECIFIED Status: Chronic Priority: Medium Current Visit: Yes (6) Pulmonary nodule SNOMED Code(s): 272627687 Code(s): R91.1 - SOLITARY PULMONARY NODULE Status: Chronic Priority: Low Current Visit: No (7) COPD (chronic obstructive pulmonary disease) SNOMED Code(s): 20922482 Code(s): J44.9 - CHRONIC OBSTRUCTIVE PULMONARY DISEASE, UNSPECIFIED Status: Chronic Priority: Medium Current Visit: Yes Qualifiers: COPD type: chronic bronchitis Chronic bronchitis type: unspecified Qualified Code(s): J42 - Unspecified chronic bronchitis (8) Diabetes mellitus type 2 in obese SNOMED Code(s): 48389861 Code(s): E11.69 - TYPE 2 DIABETES MELLITUS WITH OTHER SPECIFIED COMPLICATION; E66.9 - OBESITY, UNSPECIFIED Status: Chronic Priority: High Current Visit: Yes (9) Dyslipidemia SNOMED Code(s): 312379883 Code(s): E78.5 - HYPERLIPIDEMIA, UNSPECIFIED Status: Chronic Priority: Medium Current Visit: Yes (10) Hypertension SNOMED Code(s): 03911644 Code(s): I10 - ESSENTIAL (PRIMARY) HYPERTENSION Status: Chronic Priority: High Current Visit: Yes Qualifiers: Hypertension type: primary hypertension Qualified Code(s): I10 - Essential (primary) hypertension (11) Thoracic ascending aortic aneurysm Status: Chronic Priority: Medium Current Visit: Yes (12) Tobacco dependency SNOMED Code(s): 49089144 Code(s): F17.200 - NICOTINE DEPENDENCE, UNSPECIFIED, UNCOMPLICATED Status: Chronic Priority: Medium Current Visit: Yes - Problem List Review Problem List Initiated/Reviewed/Updated: Yes - My Orders Last 24 Hours: My Active Orders 03/29/21 21:00 Fluticasone Propionate [Flonase] 0 gm NASBOTH BID 03/30/21 09:00 Aspirin [Ecotrin] 325 mg PO BID lisinopriL [Prinivil] 5 mg PO DAILY 03/30/21 21:00 atorvaSTATin [Lipitor] 20 mg PO BEDTIME - Assessment Assessment:: 03/28/2021 The patient is a 60-year-old gentleman who was going to be admitted as an inpatient secondary to left intertrochanteric fracture hip. The patient reportedly had a mechanical fall. He does have a history of diabetes mellitus type 2 and he has been placed on insulin sliding scale at high dose. The patient will also be started on a clear liquid diet to be kept n.p.o. after midnight for possible surgery. The patient is a tobacco user and has been ordered to have nicotine patch 14 mg daily to help with nicotine addiction. He also has a COPD history which is not exacerbation and the patient's oxygen saturations will be monitored and kept around 92 to 93%. The patient will have his vital signs monitored and his antihypertensive medication will be adjusted as necessary. The patient will also have DVT prophylaxis with the use of heparin 5000 units subcutaneous every 8 hours. PT OT has also been ordered for the patient. The patient will likely need to have intensive rehabilitation after prospective surgery. 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 In accordance with the AHA/ACC guidelines the patient is considered to be at low risk for prospective surgery. 03/29/2021 This is a 60-year-old male admitted to the floor secondary to a left inter trochanteric hip fracture after having a mechanical fall. The patient has been NPO since midnight and will undergo surgery for his left hip fracture today. He states that his pain is pretty well managed but that he does have pain in his left hip when he moves. PT/OT will be initiated post-surgery. He has a history of Type 2 DM and has been on a sliding scale insulin regime. He has a history of HTN. Vitals are being monitored daily and he is continuing on his blood pressure medications. The patient is a current smoker and has been placed on nicotine patches. He has a history of COPD. Oxygen saturations are being monitored and have been stable. Of note, the patient does have a 4.2 ascending thoracic aneurysm which will need to be followed-up on an outpatient basis. He also has a 9mm nodule in his right lung. He will need to follow-up on an outpatient basis for this. Labs were obtained today: WBC 11.51. Hemoglobin 13.5. Platelets 166,000. Sodium 141. Potassium 4.1.Chloride 104. Carbon dioxide 29. Anion gap 12.1. BUN 11. Creatinine 0.9. Glucose 185. Calcium 8.5. Magnesium low at 1.7 (this was supplemented today). Total bili 1.0. AST 34. ALT 52. Alkaline phosphatase 88. Albumin 3.5. COVID test negative. MRSA negative. 03/30/2021 60-year-old male postoperative day 1 of cephalomedullary nailing of left intertrochanteric left hip fracture secondary to fall. Overall patient has been doing quite well. He remains on 1 L of oxygen and has been having some wheezes. He does have a history of COPD and his oxygen goals were changed due to this. Labs were obtained today showing a WBC of 10.36. Hemoglobin 11.7. Platelet 158,000. Neutrophils were elevated 69.2. Sodium is 139. Potassium 4.3. Chloride 102. Carbon oxide 29. Anion gap 12.3. BUN is 12. Creatinine 1.1. GFR greater than 60. Glucose has been 1 53-1 95. Calcium 8.4. Magnesium is up to 1.9. Bilirubin 0.8. AST 32. ALT 40. Alkaline phosphatase is 85. Protein 6.7. Albumin is 3.0. She has been working with therapies were recommending home versus SNF. He has not done stairs and reportedly has [address] going into his house which will be difficult to get into. He continues to have rather severe pain and this will be addressed. He is on 325 daily aspirin and this will be increased to 325 twice daily for 35 days for VTE prophylaxis. We will keep him at least until tomorrow as a work to wean him off oxygen, improve his status with PT/OT, and attempt to gain better control of his pain.
[2021-03-30] MEDS: Cyclobenzaprine 10 MG Tab PO PRN ×2 (11:03→20:38)
[2021-03-30] MEDS ORDERED: Morphine 2 MG/ML SYRINGE IVPUSH PRN (11:08)
[2021-03-30] MEDS: Acetaminophen/oxyCODONE 325-5 MG Tab PO PRN ×2 (16:08→20:37)
[2021-03-30] MEDS ORDERED: atorvaSTATin 20 MG Tab PO SCH (21:00)
[2021-03-31] MEDS: Acetaminophen/oxyCODONE 325-5 MG Tab PO PRN ×2 (00:45→05:26)
[2021-03-31] MEDS: Cyclobenzaprine 10 MG Tab PO PRN (05:26)
[2021-03-31] MEDS ORDERED: Bisacodyl 10 MG Supp RECTAL ONE (06:00)
--- NOTE | 2021-03-31 08:43 | PCM.SURGPN ---
- General Info Date of Service: 03/31/21 POD#: 2 Functional Status: Reports: Pain Controlled, Tolerating Diet, Ambulating, Urinating, Other (Pt has been able to ambulate distances in the [place] and negotiate stairs. He reports pain is better controlled today.) - Patient Data Vitals - Most Recent: Last Vital Signs Temp 97.0 F 03/31/21 05:21 Pulse 78 03/31/21 05:21 Resp 20 03/31/21 05:21 BP 133/83 03/31/21 05:21 Pulse Ox 99 03/31/21 05:21 Weight - Most Recent: 253 lb 9.6 oz I&O - Last 24 Hours: Intake & Output 03/30/21 03/31/21 03/31/21 22:59 06:59 14:59 Intake Total 1050 Output Total 1200 600 Balance -150 -600 Lab Results Last 24 Hrs: Laboratory Results - last 24 hr 03/30/21 03/30/21 03/30/21 Range/Units 11:49 12:01 17:43 WBC (4.23-9.07) K/mm3 RBC (4.63-6.08) M/mm3 Hgb (13.7-17.5) gm/dl Hct (40.1-51.0) % MCV (79.0-92.2) fl MCH (25.7-32.2) pg MCHC (32.2-35.5) g/dl RDW Std Deviation (35.1-43.9) fL Plt Count (163-337) K/mm3 MPV (9.4-12.3) fl Neut % (Auto) (34.0-67.9) % Lymph % (Auto) (21.8-53.1) % Hooker % (Auto) (5.3-12.2) % Eos % (Auto) (0.8-7.0) Baso % (Auto) (0.1-1.2) % Neut # (Auto) (1.78-5.38) K/mm3 Lymph # (Auto) (1.32-3.57) K/mm3 Hooker # (Auto) (0.30-0.82) K/mm3 Eos # (Auto) (0.04-0.54) K/mm3 Baso # (Auto) (0.01-0.08) K/mm3 Sodium (136-145) mEq/L Potassium (3.5-5.1) mEq/L Chloride (98-107) mEq/L Carbon Dioxide (21-32) mEq/L Anion Gap (5-15) BUN (7-18) mg/dL Creatinine (0.7-1.3) mg/dL Est Cr Clr Drug Dosing mL/min Estimated GFR (MDRD) (>60) mL/min BUN/Creatinine Ratio (14-18) Glucose (70-99) mg/dL POC Glucose 185 H 188 H 172 H (70-99) mg/dL Calcium (8.5-10.1) mg/dL Magnesium (1.8-2.4) mg/dL Total Bilirubin (0.2-1.0) mg/dL AST (15-37) U/L ALT (16-63) U/L Alkaline Phosphatase (46-116) U/L Total Protein (6.4-8.2) g/dl Albumin (3.4-5.0) g/dl Globulin gm/dL Albumin/Globulin Ratio (1-2) 03/31/21 03/31/21 03/31/21 Range/Units 06:12 06:24 06:24 WBC 7.95 (4.23-9.07) K/mm3 RBC 3.47 L (4.63-6.08) M/mm3 Hgb 11.3 L (13.7-17.5) gm/dl Hct 35.8 L (40.1-51.0) % MCV 103.2 H (79.0-92.2) fl MCH 32.6 H (25.7-32.2) pg MCHC 31.6 L (32.2-35.5) g/dl RDW Std Deviation 48.8 H (35.1-43.9) fL Plt Count 154 L (163-337) K/mm3 MPV 9.9 (9.4-12.3) fl Neut % (Auto) 55.6 (34.0-67.9) % Lymph % (Auto) 29.2 (21.8-53.1) % Hooker % (Auto) 11.1 (5.3-12.2) % Eos % (Auto) 3.4 (0.8-7.0) Baso % (Auto) 0.4 (0.1-1.2) % Neut # (Auto) 4.43 (1.78-5.38) K/mm3 Lymph # (Auto) 2.32 (1.32-3.57) K/mm3 Hooker # (Auto) 0.88 H (0.30-0.82) K/mm3 Eos # (Auto) 0.27 (0.04-0.54) K/mm3 Baso # (Auto) 0.03 (0.01-0.08) K/mm3 Sodium 140 (136-145) mEq/L Potassium 4.4 (3.5-5.1) mEq/L Chloride 102 (98-107) mEq/L Carbon Dioxide 32 (21-32) mEq/L Anion Gap 10.4 (5-15) BUN 17 (7-18) mg/dL Creatinine 1.1 (0.7-1.3) mg/dL Est Cr Clr Drug Dosing 69.63 mL/min Estimated GFR (MDRD) > 60 (>60) mL/min BUN/Creatinine Ratio 15.5 (14-18) Glucose 192 H (70-99) mg/dL POC Glucose 185 H (70-99) mg/dL Calcium 8.5 (8.5-10.1) mg/dL Magnesium 1.9 (1.8-2.4) mg/dL Total Bilirubin 0.8 (0.2-1.0) mg/dL AST 41 H (15-37) U/L ALT 46 (16-63) U/L Alkaline Phosphatase 96 (46-116) U/L Total Protein 6.6 (6.4-8.2) g/dl Albumin 2.8 L (3.4-5.0) g/dl Globulin 3.8 gm/dL Albumin/Globulin Ratio 0.7 L (1-2) Mark Results Last 24 Hrs: Microbiology 03/29/21 02:20 MRSA Culture - Preliminary Other Med Orders - Current: Current Medications Acetaminophen (Acetaminophen 325 Mg Tab) 650 mg PO Q4H PRN PRN Reason: Pain (Mild 1-3)/fever Last Admin: 03/29/21 20:32 Dose: 650 mg Documented by: Albuterol (Albuterol 6.7 Gm Inhaler) 0 gm INH Q4H PRN PRN Reason: Shortness of Breath Albuterol/Ipratropium (Albuterol/Ipratropium 3.0-0.5 Mg/3 Ml Neb Soln) 3 ml NEB Q4H PRN PRN Reason: Shortness Of Breath/wheezing Last Admin: 03/29/21 11:44 Dose: 3 ml Documented by: Aspirin (Aspirin 325 Mg Tab.Ec) 325 mg PO BID [facility] Last Admin: 03/30/21 20:38 Dose: 325 mg Documented by: Atorvastatin Calcium (Atorvastatin 20 Mg Tab) 20 mg PO BEDTIME [facility] Last Admin: 03/30/21 20:37 Dose: 20 mg Documented by: Bisacodyl (Bisacodyl 5 Mg Tab) 5 mg PO DAILY PRN PRN Reason: Constipation Last Admin: 03/30/21 18:00 Dose: 5 mg Documented by: Cyclobenzaprine HCl (Cyclobenzaprine 10 Mg Tab) 10 mg PO Q8H PRN PRN Reason: Muscle Spasm - Painful Last Admin: 03/31/21 05:26 Dose: 10 mg Documented by: Docusate Sodium (Docusate Sodium 100 Mg Cap) 100 mg PO BID PRN PRN Reason: Constipation Fluticasone Propionate (Fluticasone Propionate Nasal Opp 16 Gm Bottle) 0 gm NASBOTH BID [facility] Last Admin: 03/30/21 20:41 Dose: 1 spray Documented by: Insulin Human Regular (Insulin Regular, Human 100 Units/Ml 3 Ml Vial) 0 unit SUBCUT [facility]; Protocol Last Admin: 03/30/21 18:01 Dose: 3 unit Documented by: Lisinopril (Lisinopril 5 Mg Tab) 5 mg PO DAILY [facility] Last Admin: 03/30/21 10:06 Dose: 5 mg Documented by: Magnesium Hydroxide (Magnesium Hydroxide 400 Mg/5 Ml Susp 30 Ml Cup) 30 ml PO BID PRN PRN Reason: Constipation Morphine Sulfate (Morphine 2 Mg/Ml Syringe) 2 mg IVPUSH Q2H PRN PRN Reason: Breakthrough Pain Last Admin: 03/30/21 12:45 Dose: 2 mg Documented by: Naloxone HCl (Naloxone 0.4 Mg/Ml Sdv) 0.1 mg IVPUSH Q5M PRN PRN Reason: Oversedation Nicotine (Nicotine 14 Mg/24 Hr Patch) 14 mg TRDERM DAILY [facility] Last Admin: 03/30/21 08:14 Dose: 14 mg Documented by: Ondansetron HCl (Ondansetron 4 Mg Tab.Dis) 4 mg PO Q4H PRN PRN Reason: nausea, able to take PO Ondansetron HCl (Ondansetron 4 Mg/2 Ml Sdv) 4 mg IVPUSH Q6H PRN PRN Reason: Nausea/Vomiting Oxycodone/Acetaminophen (Acetaminophen/Oxycodone 325-5 Mg Tab) 1 - 2 tab PO Q4H PRN PRN Reason: Pain Last Admin: 03/31/21 05:26 Dose: 2 tab Documented by: Senna (Sennosides 8.6 Mg Tab) 8.6 mg PO BID PRN PRN Reason: Constipation Sodium Chloride (Sodium Chloride 0.9% 10 Ml Syringe) 10 ml FLUSH ASDIRECTED PRN PRN Reason: Keep Vein Open Last Admin: 03/28/21 12:30 Dose: 10 ml Documented by: Temazepam (Temazepam 15 Mg Cap) 15 mg PO BEDTIME PRN PRN Reason: Sleep Last Admin: 03/28/21 23:53 Dose: 15 mg Documented by: Discontinued Medications Bisacodyl (Bisacodyl 10 Mg Supp) 10 mg RECTAL ONETIME ONE Stop: 03/31/21 06:01 Last Admin: 03/31/21 05:26 Dose: 10 mg Documented by: Bupivacaine HCl (Bupivacaine 0.25% 10 Ml Sdv) Confirm Administered Dose 20 ml .ROUTE .STK-MED ONE Stop: 03/29/21 11:48 Last Admin: 03/29/21 13:53 Dose: 20 ml Documented by: Cefazolin Sodium (Cefazolin 1 Gm Vial) Confirm Administered Dose 2 gm .ROUTE .STK-MED ONE Stop: 03/29/21 11:06 Fentanyl (Fentanyl 100 Mcg/2 Ml Sdv) 50 mcg IVPUSH ONETIME ONE Stop: 03/28/21 15:13 Last Admin: 03/28/21 15:22 Dose: 50 mcg Documented by: Fentanyl (Fentanyl 100 Mcg/2 Ml Sdv) Confirm Administered Dose 100 mcg .ROUTE .STK-MED ONE Stop: 03/29/21 11:07 Heparin Sodium (Porcine) (Heparin Sodium 5,000 Units/Ml Vial) 5,000 units SUBCUT Q8H [place] Last Admin: 03/30/21 08:10 Dose: 5,000 units Documented by: Hydromorphone HCl (Hydromorphone 1 Mg/Ml Syringe) 1 mg IVPUSH ONETIME ONE Stop: 03/28/21 12:17 Last Admin: 03/28/21 12:29 Dose: 1 mg Documented by: Hydromorphone HCl (Hydromorphone 0.5 Mg/0.5 Ml Syringe) 0.5 mg IVPUSH ONETIME ONE Stop: 03/28/21 14:11 Last Admin: 03/28/21 14:00 Dose: 0.5 mg Documented by: Hydromorphone HCl (Hydromorphone 0.5 Mg/0.5 Ml Syringe) Confirm Administered Dose 0.5 mg .ROUTE .STK-MED ONE Stop: 03/29/21 11:09 Lactated Ringer's (Ringers, Lactated) 1,000 mls @ 125 mls/hr IV ASDIRECTED [facility] Last Admin: 03/29/21 17:25 Dose: 125 mls/hr Documented by: Magnesium Sulfate 2 gm/ Premix 50 mls @ 25 mls/hr IV ONETIME ONE Stop: 03/29/21 10:59 Last Admin: 03/29/21 08:28 Dose: 25 mls/hr Documented by: Lactated Ringer's (Ringers, Lactated) Confirm Administered Dose 2,000 mls @ as directed .ROUTE .STK-MED ONE Stop: 03/29/21 11:06 Cefazolin Sodium/Dextrose 2 gm (/ Premix) 50 mls @ 100 mls/hr IV Q8H [facility] Stop: 03/30/21 13:29 Last Admin: 03/30/21 12:44 Dose: 100 mls/hr Documented by: Cefazolin Sodium/Dextrose (Ancef 2 Gm/50 Ml) Confirm Administered Dose 50 mls @ as directed .ROUTE .STK-MED ONE Stop: 03/29/21 20:10 Last Admin: 03/29/21 20:18 Dose: Not Given Documented by: Cefazolin Sodium/Dextrose (Ancef 2 Gm/50 Ml) Confirm Administered Dose 50 mls @ as directed .ROUTE .STK-MED ONE Stop: 03/30/21 04:23 Last Admin: 03/30/21 07:50 Dose: Not Given Documented by: Iopamidol (Iopamidol 612 Mg/Ml 100 Ml Bottle) 100 ml IVPUSH ONETIME ONE Stop: 03/28/21 12:46 Last Admin: 03/28/21 13:36 Dose: 100 ml Documented by: Iopamidol (Iopamidol 612 Mg/Ml 50 Ml Sdv) 50 ml IVPUSH ONETIME ONE Stop: 03/28/21 12:46 Last Admin: 03/28/21 13:36 Dose: 25 ml Documented by: Ketamine HCl (Ketamine 500 Mg/10 Ml Mdv) Confirm Administered Dose 500 mg .ROUTE .STK-MED ONE Stop: 03/29/21 11:07 Ketorolac Tromethamine (Ketorolac 30 Mg/Ml Sdv) Confirm Administered Dose 30 mg .ROUTE .STK-MED ONE Stop: 03/29/21 11:06 Magnesium Hydroxide (Magnesium Hydroxide 400 Mg/5 Ml Susp 30 Ml Cup) 30 ml PO ONETIME ONE Stop: 03/30/21 06:01 Last Admin: 03/30/21 05:37 Dose: 30 ml Documented by: Magnesium Oxide (Magnesium Oxide 400 Mg Tab) 800 mg PO ONETIME ONE Stop: 03/30/21 07:39 Last Admin: 03/30/21 08:10 Dose: 800 mg Documented by: Midazolam HCl (Midazolam 1 Mg/Ml 2 Ml Sdv) Confirm Administered Dose 2 mg .ROUTE .STK-MED ONE Stop: 03/29/21 11:07 Miscellaneous Medication (Phenylephrine Hcl In 0.9% Nacl 1 Mg/10 Ml Syringe) Confirm Administered Dose 1 mg .ROUTE .STK-MED ONE Stop: 03/29/21 12:55 Morphine Sulfate (Morphine 2 Mg/Ml Syringe) 2 mg IVPUSH Q2H PRN PRN Reason: Pain (severe 7-10) Stop: 03/29/21 16:20 Last Admin: 03/29/21 10:32 Dose: 2 mg Documented by: Ondansetron HCl (Ondansetron 4 Mg/2 Ml Sdv) Confirm Administered Dose 4 mg .ROUTE .STK-MED ONE Stop: 03/29/21 11:06 Oxycodone HCl (Oxycodone 5 Mg Tab) 5 mg PO Q4H PRN PRN Reason: Pain (moderate 4-6) Last Admin: 03/29/21 17:21 Dose: 5 mg Documented by: Oxycodone HCl (Oxycodone 5 Mg Tab) 10 mg PO Q4H PRN PRN Reason: Pain Last Admin: 03/30/21 08:11 Dose: 10 mg Documented by: Oxycodone/Acetaminophen (Acetaminophen/Oxycodone 325-5 Mg Tab) 2 tab PO ONETIME ONE Stop: 03/28/21 16:24 Last Admin: 03/28/21 16:32 Dose: 2 tab Documented by: Propofol (Propofol 200 Mg/20 Ml Sdv) Confirm Administered Dose 400 mg .ROUTE .STK-MED ONE Stop: 03/29/21 11:06 Sodium Chloride (Sodium Chloride 0.9% 10 Ml Syringe) 10 ml FLUSH ONETIME ONE Stop: 03/28/21 12:46 Last Admin: 03/28/21 13:36 Dose: 10 ml Documented by: - Exam Wound/Incisions: Other (Shadowing noted at superior incision site. Aquacels intact.) General: Alert, Cooperative, No Acute Distress Lungs: Normal Respiratory Effort Extremities: Other (NVS intact for BLE. Amado's negative. Left thigh soft.) Sepsis Event Note - Evaluation Sepsis Screening Result: No Definite Risk - Focused Exam Vital Signs: Vital Signs Temp Pulse Resp BP Pulse Ox 03/31/21 05:21 97.0 F 78 20 133/83 99 03/31/21 00:47 97.5 F 86 20 123/77 94 L - Problem List Review Problem List Initiated/Reviewed/Updated: Yes - My Orders Last 24 Hours: Active Orders 24 hr Category Date Time Status Consult to Respiratory Therapy [Respiratory Care Assess Cons 03/30/21 10:38 Active and Treatment] [CONS] Routine CBC WITH AUTO DIFF [HEME] AM Lab 04/01/21 05:11 Ordered CBC WITH AUTO DIFF [HEME] AM Lab 04/02/21 05:11 Ordered CBC WITH AUTO DIFF [HEME] AM Lab 04/03/21 05:11 Ordered CMP [COMPREHENSIVE METABOLIC PN,CMP] [CHEM] AM Lab 04/01/21 05:11 Ordered CMP [COMPREHENSIVE METABOLIC PN,CMP] [CHEM] AM Lab 04/02/21 05:11 Ordered MAGNESIUM [CHEM] AM Lab 04/01/21 05:11 Ordered MAGNESIUM [CHEM] AM Lab 04/02/21 05:11 Ordered MAGNESIUM [CHEM] AM Lab 04/03/21 05:11 Ordered Acetaminophen/oxyCODONE [Percocet 325-5 MG] Med 03/30/21 11:07 Active 1 - 2 tab PO Q4H PRN Aspirin [Ecotrin] Med 03/30/21 09:00 Active 325 mg PO BID Morphine Med 03/30/21 11:08 Active 2 mg IVPUSH Q2H PRN atorvaSTATin [Lipitor] Med 03/30/21 21:00 Active 20 mg PO BEDTIME lisinopriL [Prinivil] Med 03/30/21 09:00 Active 5 mg PO DAILY Medication Orders Acetaminophen (Acetaminophen 325 Mg Tab) 650 mg PO Q4H PRN PRN Reason: Pain (Mild 1-3)/fever Last Admin: 03/29/21 20:32 Dose: 650 mg Documented by: JESSICA Albuterol (Albuterol 6.7 Gm Inhaler) 0 gm INH Q4H PRN PRN Reason: Shortness of Breath Albuterol/Ipratropium (Albuterol/Ipratropium 3.0-0.5 Mg/3 Ml Neb Soln) 3 ml NEB Q4H PRN PRN Reason: Shortness Of Breath/wheezing Last Admin: 03/29/21 11:44 Dose: 3 ml Documented by: FAUZIA Aspirin (Aspirin 325 Mg Tab.Ec) 325 mg PO BID [facility] Last Admin: 03/30/21 20:38 Dose: 325 mg Documented by: Admin: 03/30/21 10:06 Dose: 325 mg Documented by: ETELVINA Atorvastatin Calcium (Atorvastatin 20 Mg Tab) 20 mg PO BEDTIME [facility] Last Admin: 03/30/21 20:37 Dose: 20 mg Documented by: LINNETTE Bisacodyl (Bisacodyl 5 Mg Tab) 5 mg PO DAILY PRN PRN Reason: Constipation Last Admin: 03/30/21 18:00 Dose: 5 mg Documented by: ETELVINA Cyclobenzaprine HCl (Cyclobenzaprine 10 Mg Tab) 10 mg PO Q8H PRN PRN Reason: Muscle Spasm - Painful Last Admin: 03/31/21 05:26 Dose: 10 mg Documented by: Admin: 03/30/21 20:38 Dose: 10 mg Documented by: Admin: 03/30/21 11:03 Dose: 10 mg Documented by: Admin: 03/29/21 16:47 Dose: 10 mg Documented by: MUITDAM Docusate Sodium (Docusate Sodium 100 Mg Cap) 100 mg PO BID PRN PRN Reason: Constipation Fluticasone Propionate (Fluticasone Propionate Nasal Opp 16 Gm Bottle) 0 gm NASBOTH BID [facility] Last Admin: 03/30/21 20:41 Dose: 1 spray Documented by: Admin: 03/30/21 08:14 Dose: 1 spray Documented by: Admin: 03/29/21 20:33 Dose: 1 spray Documented by: JESSICA Insulin Human Regular (Insulin Regular, Human 100 Units/Ml 3 Ml Vial) 0 unit SUBCUT [facility]; Protocol Last Admin: 03/30/21 18:01 Dose: 3 unit Documented by: Admin: 03/30/21 12:42 Dose: 3 unit Documented by: Admin: 03/30/21 08:15 Dose: 3 unit Documented by: Admin: 03/29/21 20:29 Dose: 3 unit Documented by: Admin: 03/29/21 14:33 Dose: Not Given Documented by: Admin: 03/29/21 11:47 Dose: 3 unit Documented by: Admin: 03/29/21 08:09 Dose: 3 unit Documented by: Admin: 03/28/21 18:25 Dose: 6 unit Documented by: PARIS Lisinopril (Lisinopril 5 Mg Tab) 5 mg PO DAILY [facility] Last Admin: 03/30/21 10:06 Dose: 5 mg Documented by: ETELVINA Magnesium Hydroxide (Magnesium Hydroxide 400 Mg/5 Ml Susp 30 Ml Cup) 30 ml PO BID PRN PRN Reason: Constipation Morphine Sulfate (Morphine 2 Mg/Ml Syringe) 2 mg IVPUSH Q2H PRN PRN Reason: Breakthrough Pain Last Admin: 03/30/21 12:45 Dose: 2 mg Documented by: ETELVINA Naloxone HCl (Naloxone 0.4 Mg/Ml Sdv) 0.1 mg IVPUSH Q5M PRN PRN Reason: Oversedation Nicotine (Nicotine 14 Mg/24 Hr Patch) 14 mg TRDERM DAILY [facility] Last Admin: 03/30/21 08:14 Dose: 14 mg Documented by: Admin: 03/29/21 08:27 Dose: 14 mg Documented by: Admin: 03/28/21 18:00 Dose: 14 mg Documented by: PARIS Ondansetron HCl (Ondansetron 4 Mg Tab.Dis) 4 mg PO Q4H PRN PRN Reason: nausea, able to take PO Ondansetron HCl (Ondansetron 4 Mg/2 Ml Sdv) 4 mg IVPUSH Q6H PRN PRN Reason: Nausea/Vomiting Oxycodone/Acetaminophen (Acetaminophen/Oxycodone 325-5 Mg Tab) 1 - 2 tab PO Q4H PRN PRN Reason: Pain Last Admin: 03/31/21 05:26 Dose: 2 tab Documented by: Admin: 03/31/21 00:45 Dose: 2 tab Documented by: Admin: 03/30/21 20:37 Dose: 2 tab Documented by: Admin: 03/30/21 16:08 Dose: 2 tab Documented by: ETELVINA Senna (Sennosides 8.6 Mg Tab) 8.6 mg PO BID PRN PRN Reason: Constipation Sodium Chloride (Sodium Chloride 0.9% 10 Ml Syringe) 10 ml FLUSH ASDIRECTED PRN PRN Reason: Keep Vein Open Last Admin: 03/28/21 12:30 Dose: 10 ml Documented by: KAILA Temazepam (Temazepam 15 Mg Cap) 15 mg PO BEDTIME PRN PRN Reason: Sleep Last Admin: 03/28/21 23:53 Dose: 15 mg Documented by: CYRUS - Assessment Assessment (Free Text/Narrative):: POD#2 - s/p cephalomedullary malgorzata placement for left hip fracture - Plan Plan (Free Text/Narrative):: 1. Hgb stable. 2. Medical management per Hospitalist service. Hospitalist states pt prepared for d/c to home today. Pt will have the assistance of his son. 3. 325 mg ASA PO BID, frequent mobility, TEDs. 4. Clinic follow-up scheduled. The pt's case was discussed with Dr. Herrera.
[2021-03-31] MEDS: Insulin Regular, Human 100 Units/ML 3 ML Vial SUBCUT SCH (08:47)
[2021-03-31] MEDS: Lisinopril 5 MG Tab PO SCH (08:48)
[2021-03-31] MEDS: Aspirin 325 MG Tab.EC PO SCH (08:48)
[2021-03-31] MEDS: Fluticasone Propionate Nasal Spray 16 GM Bottle NASBOTH SCH (08:49)
[2021-03-31] MEDS: Nicotine 14 MG/24 Hr Patch TRDERM SCH (08:49)
--- NOTE | 2021-03-31 09:17 | PCM.DCSUM1 ---
Discharge Summary - Hospital Course HPI Initial Comments: The patient is a 60-year-old gentleman who had presented to the emergency department after he had sustained a fall from a grain bin. The patient had fallen 5 feet and landed on his left hip. The patient reportedly did not have injury to his head or neck. The patient said that he was unable to get up after the fall. He is reported severe pain in the left hip and left lower leg. The patient has several comorbidities to include medication for diabetes mellitus type 2, hypertension, dyslipidemia and depression with anxiety. The patient has denied any dizziness or lightheadedness. He said it was a mechanical fall. The patient uses tobacco and would like to have a nicotine patch. The patient lives by himself. Diagnosis: Stroke: No - Discharge Data Discharge Date: 03/31/21 (Admit date: 03/28/2021) Discharge Disposition: Home, Home Health Agency 06 Condition: Good - Referral to Home Health Date of Face to Face Encounter: 03/31/21 Reason for Homebound Status: See discharge summary Primary Care Physician: Maria Ines Garland NP Skilled Need: See discharge summary - Discharge Diagnosis/Problem(s) (1) Status post-operative repair of closed fracture of left hip SNOMED Code(s): 043157026 ICD Code: Z98.890 - OTHER SPECIFIED POSTPROCEDURAL STATES; Z87.81 - PERSONAL HISTORY OF (HEALED) TRAUMATIC FRACTURE Status: Acute Priority: High Current Visit: Yes (2) Closed intertrochanteric fracture of left hip SNOMED Code(s): 23689991, [id number] ICD Code: S72.142A - DISPLACED INTERTROCHANTERIC FRACTURE OF LEFT FEMUR, INIT Status: Acute Priority: High Current Visit: Yes Qualifiers: Encounter type: initial encounter Fracture alignment: displaced Qualified Code(s): S72.142A - Displaced intertrochanteric fracture of left femur, initial encounter for closed fracture (3) Fall SNOMED Code(s): 3764404, 694216592 ICD Code: W19.XXXA - UNSPECIFIED FALL, INITIAL ENCOUNTER Status: Acute Priority: High Current Visit: Yes Qualifiers: Encounter type: initial encounter Qualified Code(s): W19.XXXA - Unspecified fall, initial encounter (4) Hypomagnesemia SNOMED Code(s): 574608142 ICD Code: E83.42 - HYPOMAGNESEMIA Status: Resolved Priority: High Current Visit: Yes (5) Obesity (BMI 30-39.9) SNOMED Code(s): 979780099, 148431286 ICD Code: E66.9 - OBESITY, UNSPECIFIED Status: Chronic Priority: Medium Current Visit: Yes (6) Pulmonary nodule SNOMED Code(s): 136929010 ICD Code: R91.1 - SOLITARY PULMONARY NODULE Status: Chronic Priority: Low Current Visit: No (7) COPD (chronic obstructive pulmonary disease) SNOMED Code(s): 13861062 ICD Code: J44.9 - CHRONIC OBSTRUCTIVE PULMONARY DISEASE, UNSPECIFIED Status: Chronic Priority: Medium Current Visit: Yes Qualifiers: COPD type: chronic bronchitis Chronic bronchitis type: unspecified Qualified Code(s): J42 - Unspecified chronic bronchitis (8) Diabetes mellitus type 2 in obese SNOMED Code(s): 31804593 ICD Code: E11.69 - TYPE 2 DIABETES MELLITUS WITH OTHER SPECIFIED COMPLICATION; E66.9 - OBESITY, UNSPECIFIED Status: Chronic Priority: High Current Visit: Yes (9) Dyslipidemia SNOMED Code(s): 956220719 ICD Code: E78.5 - HYPERLIPIDEMIA, UNSPECIFIED Status: Chronic Priority: Medium Current Visit: Yes (10) Hypertension SNOMED Code(s): 24433789 ICD Code: I10 - ESSENTIAL (PRIMARY) HYPERTENSION Status: Chronic Priority: High Current Visit: Yes Qualifiers: Hypertension type: primary hypertension Qualified Code(s): I10 - Essential (primary) hypertension (11) Thoracic ascending aortic aneurysm Status: Chronic Priority: Medium Current Visit: Yes (12) Tobacco dependency SNOMED Code(s): 97204558 ICD Code: F17.200 - NICOTINE DEPENDENCE, UNSPECIFIED, UNCOMPLICATED Status: Chronic Priority: Medium Current Visit: Yes - Patient Summary/Data Consults: Consultations 03/28/21 18:40 Consult to Physician [CONS] Routine 03/29/21 15:08 OT Evaluation and Treatment [CONS] Routine PT Evaluation and Treatment [CONS] Routine 03/30/21 10:38 Consult to Respiratory Therapy [Respiratory Care Assess and Treatment] [CONS] Routine Labs Pending at D/C: None Recommended Follow-up Testing/Procedures: Follow-up with primary care provider within 7 to 10 days of discharge, sooner if needed. * Recommend repeat CBC, CMP, and magnesium in follow-up. * Recommend outpatient PFT and consider outpatient sleep study. * Recommend follow-up chest CT in August or October 2021 regarding 9mm lung nodule in right lung base * Recommend continued monitoring of Aneurysmal dilation of ascending aorta as noted. Follow-up with orthopedics as scheduled. Hospital Course: This is a 60-year-old male who presents to our ED via ambulance after a fall off of a grain bin landing on his left side. He reports he believes he fell over 5 feet. Fall resulted in immediate left sided leg pain he was unable to ambulate. CT scan of the chest revealed a 9 mm nodule within the right lung base. Recommend follow-up noncontrast CT study in 6 months. This would occur in August or October 2021. There is also a slight aneurysmal dilation of the ascending aorta at 4.2 cm. Descending aorta at this level measures 3.0 cm. Other incidental findings are noted. CT of the abdomen and pelvis revealed a left hip fracture showing mild impaction which is intertrochanteric in location and incidental findings. CT of the lumbar spine showed prominent degenerative change as noted but no acute fracture of subluxation. MRI study could be considered to further evaluate the degenerative change. X-ray of the left femur showed commuted intertrochanteric fracture with slight impaction and joint space narrowing seen with the medial joint compartment. X-ray of the left tibia and fibula was obtained showing degenerative changes of the left knee but nothing acute. He was subsequently admitted to the medical floor for planned surgical fixation of his fracture. Dr. Herrera, orthopedic surgeon was consulted. He underwent cephalomedullary nailing of left intertrochanteric left hip fracture on 03/29/2021. Postoperatively he has done fairly well. He was held over an extra day because he was requiring oxygen, had pain control issues, and was having difficulty ambulating. Since that time he is improved and PT/OT are recommending home with home health services. He has been weaned off of oxygen. He is a smoker and was on a nicotine patch while here. He requested this be continued at discharge. Labs remain grossly stable. He was reporting some constipation prior to discharge and we did discuss medications and ways to improve this. VTE prophylaxis was discussed with surgical team and patient will be discharged on 35 days of 25 mg twice daily aspirin. He was prescribed as needed Flexeril and Percocet at discharge for pain and muscle spasms. He was advised not to operate machinery or drive a car well on Percocet and that it may lead to worsening constipation. He was prescribed nicotine patches as noted prior. He will be discharged home today. Recommend follow-up with primary care provider within 7 to 10 days of discharge, sooner if needed. Recommend repeat CBC, CMP, and magnesium in follow-up. Recommend follow-up with Dr. Herrera's office as scheduled. He was advised to contact Dr. Herrera's office or his primary care provider should symptoms return or worsen. He may also return to the emergency room if he feels it is warranted. Patient will require a front wheeled walker at discharge. I personally met with Pramod prior to discharge to address his homebound status and need for home health care. Pramod lives alone and now has difficulty with ambulation and transportation. He is toe-touch weightbearing for his left leg. Because of this we are recommending home health prison, PT, OT, and a home safety evaluation. Home health PT can assist with gait training and strengthening. Home health OT can assist with ADL training and strengthening. They will also perform a home safety evaluation. Home health prison can assist with monitoring patient's overall progress, medications, and overall health. The services can be monitored by the patient's primary care provider, Maria Ines Garland NP, and adjusted as she sees fit. - Patient Instructions Diet: Diabetic Diet Activity: Apply Ice, As Tolerated, Elevate Extremity Activity, Other: Toe-touch weight bearing for left leg. Driving: Do Not Drive Showering/Bathing: May Shower Wound/Incision Care: Keep Operative Site/Wound Site Clean and Dry, Do NOT Change Dressing Notify Provider of: Fever, Increased Pain, Swelling and Redness, Drainage, Nausea and/or Vomiting Other/Special Instructions: Please get up and moving around EVERY HOUR while awake. This helps to prevent blood clots. Please use your walker and have help with mobility as needed. Take a short walk in your home every hour while awake. You may place your foot on the floor for balance with standing or walking, but do not place measurable weight through the limb. Please take 325mg aspirin TWICE daily. The aspirin is being used for blood clot prevention and not for pain management so please do not miss a dose of the medication. You could use a medication like Pepcid or famotidine and a medication like Prilosec or Nexium to protect your stomach while you are using the aspirin. At home, please complete the exercises that you learned after surgery. Use the pain medication as needed. The medication may cause drowsiness and constipation. Contact your primary care provider for instructions if you are constipated. You may use a stool softener like docusate sodium or Colace 100mg twice daily and/or a laxative like Miralax daily for constipation. Increase your water and fiber intake while you are using the pain medication. Please discontinue use of the prescription pain medication as soon as able. The goal is to use the least amount of prescription pain medication as possible and to discontinue use of the prescription pain medication as soon as possible. Please do not use other medications that may cause drowsiness (other pain medications, anxiety pills, cold medications, sleeping pills, etc) while using the prescription pain medication. Do not use alcohol while using the pain medication. You may use acetaminophen or Tylenol for pain management, however, please ensure you are not using over 4000 mg or 4 grams of acetaminophen per day. At this time, please do not use ibuprofen (Motrin, Advil) or naproxen (Aleve) for pain management as you are using the aspirin. When the aspirin course is completed in 5 weeks, you could use ibuprofen or naproxen for pain management (if this is allowed by your primary care provider). If you can tolerate use of the DAILY hose, wear them during the day and remove them at night. Elevate the limb to decrease swelling. Elevating the limb above the level of the heart will be most effective. Elevating the foot higher than the knee will help to decrease swelling in the f oot. Place ice to the area often. Place a towel between your skin and the blue pad. Please keep the dressings in place until follow-up. As long as the dressings are sealed and without a hole, the dressings are water resistant and therefore, you may have a shower. Please do not soak the dressings in a tub, pool, whirlpool. Notify the Clinic if the dressings become saturated. Increase your protein intake while you are healing. It is normal to have swelling and bruising at the surgical sites, as well as above and below the surgical sites. If you have diabetes or have been instructed by your primary care provider to monitor your blood sugars, please closely monitor your sugars. Notify your primary care provider of the values. Elevated sugars can increase the risk of infection. If you have questions or concerns, please call [phone] and leave a message for the nurse. Your call will be returned. Follow-up with primary care provider within 7-10 days of discharge, sooner if needed. - Discharge Plan *PRESCRIPTION DRUG MONITORING PROGRAM REVIEWED*: No *COPY OF PRESCRIPTION DRUG MONITORING REPORT IN PATIENT CHARANJIT: No Prescriptions/Med Rec: Aspirin [Ecotrin EC] 325 mg PO BID #67 tab.ec Cyclobenzaprine [Flexeril] 10 mg PO Q8H PRN #12 tablet PRN Reason: Muscle Spasm - Painful Nicotine [Habitrol] 14 mg TRDERM DAILY #21 patch Acetaminophen/oxyCODONE [Percocet 325-5 MG] 1 - 2 tab PO Q6H PRN #20 tablet PRN Reason: Pain Home Medications: Home Meds atorvaSTATin Calcium [Atorvastatin Calcium] 20 mg PO BEDTIME 04/30/18 [History] Acetaminophen 325 mg PO Q4H PRN 03/28/21 [History] Albuterol [Proventil HFA] 1 puff INH Q4H PRN 03/28/21 [History] Fluticasone Propionate [Flonase] 1 spray NASBOTH BID 03/28/21 [History] Glimepiride 4 mg PO BID 03/28/21 [History] Ipratropium [place] 2 spray NASBOTH TID 03/28/21 [History] Multivitamin 1 tab PO DAILY 03/28/21 [History] [place]-3 Fatty Acids [Maxepa] 1 cap PO DAILY 03/28/21 [History] Omeprazole 40 mg PO DAILY 03/28/21 [History] Silver Sulfadiazine [Silvadene 1% Cream 20 GM] 1 applic TOP DAILY PRN 03/28/21 [History] lisinopriL [Lisinopril] 5 mg PO DAILY 03/28/21 [History] metFORMIN HCl [Metformin HCl] 1,000 mg PO BIDMEALS 03/28/21 [History] Acetaminophen/oxyCODONE [Percocet 325-5 MG] 1 - 2 tab PO Q6H PRN #20 tablet 03/31/21 [Rx] Aspirin [Ecotrin EC] 325 mg PO BID #67 tab.ec 03/31/21 [Rx] Cyclobenzaprine [Flexeril] 10 mg PO Q8H PRN #12 tablet 03/31/21 [Rx] Nicotine [Habitrol] 14 mg TRDERM DAILY #21 patch 03/31/21 [Rx] Oxygen Therapy Mode: Room Air Patient Handouts: Hip Fracture Treated With ORIF, Care After, Hip Fracture Treated With ORIF, Steps to Quit Smoking Referrals: Maria Ines Garland NP [Primary Care Provider] - 04/09/21 1:15 pm (Please check in by 1:00pm.) Jolie Heredia PA-C [Physician Applique [employer]er] - 04/13/21 8:30 am - Discharge Summary/Plan Comment DC Time >30 min.: Yes Total # of Minutes for Discharge Time: 45 - General Info Date of Service: 03/31/21 Functional Status: Reports: Pain Controlled, Tolerating Diet, Ambulating, Urinating, Incentive Spirometry. Denies: New Symptoms - Review of Systems General: Reports: Weakness. Denies: Fever, Fatigue, Malaise, Chills HEENT: Reports: No Symptoms. Denies: Headaches, Sore Throat Pulmonary: Reports: No Symptoms, Wheezing. Denies: Shortness of Breath, Cough, Sputum Cardiovascular: Reports: No Symptoms. Denies: Chest Pain, Palpitations, Dyspnea on Exertion Gastrointestinal: Reports: Constipation. Denies: Abdominal Pain, Diarrhea, Nausea, Vomiting Genitourinary: Reports: No Symptoms. Denies: Pain Musculoskeletal: Reports: Leg Pain (Left) Skin: Reports: No Symptoms. Denies: Cyanosis Neurological: Reports: Pre-Existing Deficit (Baseline hoarse speech), Difficulty Walking, Weakness, Gait Disturbance. Denies: Confusion, Dizziness, Headache, Numbness, Seizure, Syncope, Tingling, Tremors Psychiatric: Reports: No Symptoms - Patient Data Vitals - Most Recent: Last Vital Signs Temp 97.0 F 03/31/21 05:21 Pulse 78 03/31/21 05:21 Resp 20 03/31/21 05:21 BP 120/87 03/31/21 08:48 Pulse Ox 99 03/31/21 05:21 Weight - Most Recent: 253 lb 9.6 oz I&O - Last 24 hours: Intake & Output 03/30/21 03/31/21 03/31/21 22:59 06:59 14:59 Intake Total 1050 Output Total 1200 600 Balance -150 -600 Lab Results - Last 24 hrs: Laboratory Results - last 24 hr 03/30/21 03/30/21 03/30/21 Range/Units 11:49 12:01 17:43 WBC (4.23-9.07) K/mm3 RBC (4.63-6.08) M/mm3 Hgb (13.7-17.5) gm/dl Hct (40.1-51.0) % MCV (79.0-92.2) fl MCH (25.7-32.2) pg MCHC (32.2-35.5) g/dl RDW Std Deviation (35.1-43.9) fL Plt Count (163-337) K/mm3 MPV (9.4-12.3) fl Neut % (Auto) (34.0-67.9) % Lymph % (Auto) (21.8-53.1) % [place] % (Auto) (5.3-12.2) % Eos % (Auto) (0.8-7.0) Baso % (Auto) (0.1-1.2) % Neut # (Auto) (1.78-5.38) K/mm3 Lymph # (Auto) (1.32-3.57) K/mm3 [place] # (Auto) (0.30-0.82) K/mm3 Eos # (Auto) (0.04-0.54) K/mm3 Baso # (Auto) (0.01-0.08) K/mm3 Sodium (136-145) mEq/L Potassium (3.5-5.1) mEq/L Chloride (98-107) mEq/L Carbon Dioxide (21-32) mEq/L Anion Gap (5-15) BUN (7-18) mg/dL Creatinine (0.7-1.3) mg/dL Est Cr Clr Drug Dosing mL/min Estimated GFR (MDRD) (>60) mL/min BUN/Creatinine Ratio (14-18) Glucose (70-99) mg/dL POC Glucose 185 H 188 H 172 H (70-99) mg/dL Calcium (8.5-10.1) mg/dL Magnesium (1.8-2.4) mg/dL Total Bilirubin (0.2-1.0) mg/dL AST (15-37) U/L ALT (16-63) U/L Alkaline Phosphatase (46-116) U/L Total Protein (6.4-8.2) g/dl Albumin (3.4-5.0) g/dl Globulin gm/dL Albumin/Globulin Ratio (1-2) 03/31/21 03/31/21 03/31/21 Range/Units 06:12 06:24 06:24 WBC 7.95 (4.23-9.07) K/mm3 RBC 3.47 L (4.63-6.08) M/mm3 Hgb 11.3 L (13.7-17.5) gm/dl Hct 35.8 L (40.1-51.0) % MCV 103.2 H (79.0-92.2) fl MCH 32.6 H (25.7-32.2) pg MCHC 31.6 L (32.2-35.5) g/dl RDW Std Deviation 48.8 H (35.1-43.9) fL Plt Count 154 L (163-337) K/mm3 MPV 9.9 (9.4-12.3) fl Neut % (Auto) 55.6 (34.0-67.9) % Lymph % (Auto) 29.2 (21.8-53.1) % Wilkinson % (Auto) 11.1 (5.3-12.2) % Eos % (Auto) 3.4 (0.8-7.0) Baso % (Auto) 0.4 (0.1-1.2) % Neut # (Auto) 4.43 (1.78-5.38) K/mm3 Lymph # (Auto) 2.32 (1.32-3.57) K/mm3 [place] # (Auto) 0.88 H (0.30-0.82) K/mm3 Eos # (Auto) 0.27 (0.04-0.54) K/mm3 Baso # (Auto) 0.03 (0.01-0.08) K/mm3 Sodium 140 (136-145) mEq/L Potassium 4.4 (3.5-5.1) mEq/L Chloride 102 (98-107) mEq/L Carbon Dioxide 32 (21-32) mEq/L Anion Gap 10.4 (5-15) BUN 17 (7-18) mg/dL Creatinine 1.1 (0.7-1.3) mg/dL Est Cr Clr Drug Dosing 69.63 mL/min Estimated GFR (MDRD) > 60 (>60) mL/min BUN/Creatinine Ratio 15.5 (14-18) Glucose 192 H (70-99) mg/dL POC Glucose 185 H (70-99) mg/dL Calcium 8.5 (8.5-10.1) mg/dL Magnesium 1.9 (1.8-2.4) mg/dL Total Bilirubin 0.8 (0.2-1.0) mg/dL AST 41 H (15-37) U/L ALT 46 (16-63) U/L Alkaline Phosphatase 96 (46-116) U/L Total Protein 6.6 (6.4-8.2) g/dl Albumin 2.8 L (3.4-5.0) g/dl Globulin 3.8 gm/dL Albumin/Globulin Ratio 0.7 L (1-2) DAVIAN Results - Last 24 hrs: Microbiology 03/29/21 02:20 MRSA Culture - Preliminary Other Med Orders - Current: Current Medications Acetaminophen (Acetaminophen 325 Mg Tab) 650 mg PO Q4H PRN PRN Reason: Pain (Mild 1-3)/fever Last Admin: 03/29/21 20:32 Dose: 650 mg Documented by: Albuterol (Albuterol 6.7 Gm Inhaler) 0 gm INH Q4H PRN PRN Reason: Shortness of Breath Albuterol/Ipratropium (Albuterol/Ipratropium 3.0-0.5 Mg/3 Ml Neb Soln) 3 ml NEB Q4H PRN PRN Reason: Shortness Of Breath/wheezing Last Admin: 03/29/21 11:44 Dose: 3 ml Documented by: Aspirin (Aspirin 325 Mg Tab.Ec) 325 mg PO BID [place] Last Admin: 03/31/21 08:48 Dose: 325 mg Documented by: Atorvastatin Calcium (Atorvastatin 20 Mg Tab) 20 mg PO BEDTIME [place] Last Admin: 03/30/21 20:37 Dose: 20 mg Documented by: Bisacodyl (Bisacodyl 5 Mg Tab) 5 mg PO DAILY PRN PRN Reason: Constipation Last Admin: 03/30/21 18:00 Dose: 5 mg Documented by: Cyclobenzaprine HCl (Cyclobenzaprine 10 Mg Tab) 10 mg PO Q8H PRN PRN Reason: Muscle Spasm - Painful Last Admin: 03/31/21 05:26 Dose: 10 mg Documented by: Docusate Sodium (Docusate Sodium 100 Mg Cap) 100 mg PO BID PRN PRN Reason: Constipation Fluticasone Propionate (Fluticasone Propionate Nasal [place] 16 Gm Bottle) 0 gm NASBOTH BID [facility] Last Admin: 03/31/21 08:49 Dose: 1 spray Documented by: Insulin Human Regular (Insulin Regular, Human 100 Units/Ml 3 Ml Vial) 0 unit SUBCUT [facility]; Protocol Last Admin: 03/31/21 08:47 Dose: 3 unit Documented by: Lisinopril (Lisinopril 5 Mg Tab) 5 mg PO DAILY [facility] Last Admin: 03/31/21 08:48 Dose: 5 mg Documented by: Magnesium Hydroxide (Magnesium Hydroxide 400 Mg/5 Ml Susp 30 Ml Cup) 30 ml PO BID PRN PRN Reason: Constipation Morphine Sulfate (Morphine 2 Mg/Ml Syringe) 2 mg IVPUSH Q2H PRN PRN Reason: Breakthrough Pain Last Admin: 03/30/21 12:45 Dose: 2 mg Documented by: Naloxone HCl (Naloxone 0.4 Mg/Ml Sdv) 0.1 mg IVPUSH Q5M PRN PRN Reason: Oversedation Nicotine (Nicotine 14 Mg/24 Hr Patch) 14 mg TRDERM DAILY [facility] Last Admin: 03/31/21 08:49 Dose: 14 mg Documented by: Ondansetron HCl (Ondansetron 4 Mg Tab.Dis) 4 mg PO Q4H PRN PRN Reason: nausea, able to take PO Ondansetron HCl (Ondansetron 4 Mg/2 Ml Sdv) 4 mg IVPUSH Q6H PRN PRN Reason: Nausea/Vomiting Oxycodone/Acetaminophen (Acetaminophen/Oxycodone 325-5 Mg Tab) 1 - 2 tab PO Q4H PRN PRN Reason: Pain Last Admin: 03/31/21 05:26 Dose: 2 tab Documented by: Senna (Sennosides 8.6 Mg Tab) 8.6 mg PO BID PRN PRN Reason: Constipation Sodium Chloride (Sodium Chloride 0.9% 10 Ml Syringe) 10 ml FLUSH ASDIRECTED PRN PRN Reason: Keep Vein Open Last Admin: 03/28/21 12:30 Dose: 10 ml Documented by: Temazepam (Temazepam 15 Mg Cap) 15 mg PO BEDTIME PRN PRN Reason: Sleep Last Admin: 03/28/21 23:53 Dose: 15 mg Documented by: Discontinued Medications Bisacodyl (Bisacodyl 10 Mg Supp) 10 mg RECTAL ONETIME ONE Stop: 03/31/21 06:01 Last Admin: 03/31/21 05:26 Dose: 10 mg Documented by: Bupivacaine HCl (Bupivacaine 0.25% 10 Ml Sdv) Confirm Administered Dose 20 ml .ROUTE .STK-MED ONE Stop: 03/29/21 11:48 Last Admin: 03/29/21 13:53 Dose: 20 ml Documented by: Cefazolin Sodium (Cefazolin 1 Gm Vial) Confirm Administered Dose 2 gm .ROUTE .STK-MED ONE Stop: 03/29/21 11:06 Fentanyl (Fentanyl 100 Mcg/2 Ml Sdv) 50 mcg IVPUSH ONETIME ONE Stop: 03/28/21 15:13 Last Admin: 03/28/21 15:22 Dose: 50 mcg Documented by: Fentanyl (Fentanyl 100 Mcg/2 Ml Sdv) Confirm Administered Dose 100 mcg .ROUTE .STK-MED ONE Stop: 03/29/21 11:07 Heparin Sodium (Porcine) (Heparin Sodium 5,000 Units/Ml Vial) 5,000 units SUBCUT Q8H [place] Last Admin: 03/30/21 08:10 Dose: 5,000 units Documented by: Hydromorphone HCl (Hydromorphone 1 Mg/Ml Syringe) 1 mg IVPUSH ONETIME ONE Stop: 03/28/21 12:17 Last Admin: 03/28/21 12:29 Dose: 1 mg Documented by: Hydromorphone HCl (Hydromorphone 0.5 Mg/0.5 Ml Syringe) 0.5 mg IVPUSH ONETIME ONE Stop: 03/28/21 14:11 Last Admin: 03/28/21 14:00 Dose: 0.5 mg Documented by: Hydromorphone HCl (Hydromorphone 0.5 Mg/0.5 Ml Syringe) Confirm Administered Dose 0.5 mg .ROUTE .STK-MED ONE Stop: 03/29/21 11:09 Lactated Ringer's (Ringers, Lactated) 1,000 mls @ 125 mls/hr IV ASDIRECTED [facility] Last Admin: 03/29/21 17:25 Dose: 125 mls/hr Documented by: Magnesium Sulfate 2 gm/ Premix 50 mls @ 25 mls/hr IV ONETIME ONE Stop: 03/29/21 10:59 Last Admin: 03/29/21 08:28 Dose: 25 mls/hr Documented by: Lactated Ringer's (Ringers, Lactated) Confirm Administered Dose 2,000 mls @ as directed .ROUTE .STK-MED ONE Stop: 03/29/21 11:06 Cefazolin Sodium/Dextrose 2 gm (/ Premix) 50 mls @ 100 mls/hr IV Q8H [facility] Stop: 03/30/21 13:29 Last Admin: 03/30/21 12:44 Dose: 100 mls/hr Documented by: Cefazolin Sodium/Dextrose (Ancef 2 Gm/50 Ml) Confirm Administered Dose 50 mls @ as directed .ROUTE .STK-MED ONE Stop: 03/29/21 20:10 Last Admin: 03/29/21 20:18 Dose: Not Given Documented by: Cefazolin Sodium/Dextrose (Ancef 2 Gm/50 Ml) Confirm Administered Dose 50 mls @ as directed .ROUTE .STK-MED ONE Stop: 03/30/21 04:23 Last Admin: 03/30/21 07:50 Dose: Not Given Documented by: Iopamidol (Iopamidol 612 Mg/Ml 100 Ml Bottle) 100 ml IVPUSH ONETIME ONE Stop: 03/28/21 12:46 Last Admin: 03/28/21 13:36 Dose: 100 ml Documented by: Iopamidol (Iopamidol 612 Mg/Ml 50 Ml Sdv) 50 ml IVPUSH ONETIME ONE Stop: 03/28/21 12:46 Last Admin: 03/28/21 13:36 Dose: 25 ml Documented by: Ketamine HCl (Ketamine 500 Mg/10 Ml Mdv) Confirm Administered Dose 500 mg .ROUTE .STK-MED ONE Stop: 03/29/21 11:07 Ketorolac Tromethamine (Ketorolac 30 Mg/Ml Sdv) Confirm Administered Dose 30 mg .ROUTE .STK-MED ONE Stop: 03/29/21 11:06 Magnesium Hydroxide (Magnesium Hydroxide 400 Mg/5 Ml Susp 30 Ml Cup) 30 ml PO ONETIME ONE Stop: 03/30/21 06:01 Last Admin: 03/30/21 05:37 Dose: 30 ml Documented by: Magnesium Oxide (Magnesium Oxide 400 Mg Tab) 800 mg PO ONETIME ONE Stop: 03/30/21 07:39 Last Admin: 03/30/21 08:10 Dose: 800 mg Documented by: Midazolam HCl (Midazolam 1 Mg/Ml 2 Ml Sdv) Confirm Administered Dose 2 mg .ROUTE .STK-MED ONE Stop: 03/29/21 11:07 Miscellaneous Medication (Phenylephrine Hcl In 0.9% Nacl 1 Mg/10 Ml Syringe) Confirm Administered Dose 1 mg .ROUTE .STK-MED ONE Stop: 03/29/21 12:55 Morphine Sulfate (Morphine 2 Mg/Ml Syringe) 2 mg IVPUSH Q2H PRN PRN Reason: Pain (severe 7-10) Stop: 03/29/21 16:20 Last Admin: 03/29/21 10:32 Dose: 2 mg Documented by: Ondansetron HCl (Ondansetron 4 Mg/2 Ml Sdv) Confirm Administered Dose 4 mg .ROUTE .STK-MED ONE Stop: 03/29/21 11:06 Oxycodone HCl (Oxycodone 5 Mg Tab) 5 mg PO Q4H PRN PRN Reason: Pain (moderate 4-6) Last Admin: 03/29/21 17:21 Dose: 5 mg Documented by: Oxycodone HCl (Oxycodone 5 Mg Tab) 10 mg PO Q4H PRN PRN Reason: Pain Last Admin: 03/30/21 08:11 Dose: 10 mg Documented by: Oxycodone/Acetaminophen (Acetaminophen/Oxycodone 325-5 Mg Tab) 2 tab PO ONETIME ONE Stop: 03/28/21 16:24 Last Admin: 03/28/21 16:32 Dose: 2 tab Documented by: Propofol (Propofol 200 Mg/20 Ml Sdv) Confirm Administered Dose 400 mg .ROUTE .STK-MED ONE Stop: 03/29/21 11:06 Sodium Chloride (Sodium Chloride 0.9% 10 Ml Syringe) 10 ml FLUSH ONETIME ONE Stop: 03/28/21 12:46 Last Admin: 09/26/21 13:36 Dose: 10 ml Documented by: - Exam Quality Assessment: Reports: DVT Prophylaxis. Denies: Supplemental Oxygen, Urine Catheter General: Reports: Alert, Oriented, Cooperative, No Acute Distress HEENT: Reports: Pupils Equal, Pupils Reactive, Mucous Membr. Moist/[place] Neck: Reports: Supple, Trachea Midline Lungs: Reports: Normal Respiratory Effort, Decreased Breath Sounds, Wheezing (Mild) Cardiovascular: Reports: Regular Rate, Regular Rhythm GI/Abdominal Exam: Normal Bowel Sounds, Soft, Non-Tender, No Distention (Male) Exam: Deferred Rectal (Males) Exam: Deferred Back Exam: Reports: Normal Inspection, Full Range of Motion Extremities: No Pedal Edema, Normal Capillary Refill (Bandage in place on left leg), Leg Pain (Left), Limited Range of Motion, Other (Bandage in place on left leg) Skin: Reports: Warm, Dry, Intact Wound/Incisions: Reports: Dressing Dry and Intact Neurological: Reports: No New Focal Deficit Psy/Mental Status: Reports: Alert, Normal Affect, Normal Mood
[2021-04-01 19:49] VITALS: BP 145/79; PULSE 94
--- NOTE | 2021-04-13 17:16 | PCM.OPNOTE ---
- General Post-Op/Procedure Note Date of Surgery/Procedure: 03/29/21 Operative Procedure(s): cephallomedullary nailing of left intertrochanteric hip fracture Pre Op Diagnosis: displaced left intertrochanteric fracture Post-Op Diagnosis: Same Anesthesia Technique: Local, MAC, Spinal Primary Surgeon: Rodney Herrera Anesthesia Provider: Renetta Vincent Staple Fiber Washer: Jolie Heredia EBL in mLs: 75 Complications: None Condition: Good
--- NOTE | 2021-04-14 07:13 | OR ---
DATE OF OPERATION: 03/29/2021 SURGEON: Rodney Herrera MD OPERATION PERFORMED: Cephalomedullary nailing of left intertrochanteric hip fracture. PREOPERATIVE DIAGNOSIS: Displaced left intertrochanteric hip fracture. POSTOPERATIVE DIAGNOSIS: Displaced left intertrochanteric hip fracture. ANESTHESIA: Local MAC with spinal. ANESTHESIA PROVIDER: Renetta Vincent CRNA TRAIN CONDUCTOR: Jolie Heredia PA-C ESTIMATED BLOOD LOSS: 75 mL. COMPLICATIONS: None. CONDITION: Stable. DESCRIPTION OF PROCEDURE: The patient was identified in the preoperative holding area. Proper site was marked and identified by surgeon. The patient was taken back to the operative theater, where after adequate anesthesia, the patient was placed on the traction table. The PEG was placed and was well padded. The patient's right lower extremity was placed in traction boot and was placed into a padded position with no gross traction. Left lower extremity was placed in a traction boot and was placed in gross traction. At this time, C-arm fluoroscopy was utilized. Time- out was performed and a reduction maneuver of the left intertrochanteric hip fracture was then obtained in an anatomic position. Left hip was then sterilely prepped and draped in the usual sterile fashion. OR time-out was performed. The patient received 2 g IV Ancef. Standard incision superior to the greater trochanter was then undertaken. At this time, guide pin was placed in a center- center position at the tip of the greater trochanter. Opening reamer for a Morton long gamma nail was then utilized. At this time, ball-tipped guidewire was placed down the canal to the metaphyseal region of the knee. This was then measured. I then utilized the reamer up to a 13 for an 11 mm long Christel gamma nail. This was then placed and was placed in the proper position. A small stab incision was made and the guide pin after the ball-tipped guidewire was removed. The guide pin was placed up into the head and neck making sure the tip-apex distance was less than 25 mm. This was then measured. Step reamer was utilized for a 95 screw. The 95 lag screw was then placed and was found to have anatomic reduction of the fracture. At this time, attention was turned distally. Perfect circles were obtained distally and 1 static interlock screw was placed distally. It was found to have adequate position on all views. Saline was then irrigated through all stab incisions. 0 Vicryl was used for closure of the gluteal fascia, 2-0 Vicryl was used subcutaneously, and rene used for skin closure. The patient had a sterile soft dressing applied and was sent to the PACU in stable condition. DONALD /[id number]
== END 2021-03-31 11:23 | disposition home health service (06) | DRG 482 ==
LOC: JD.ED 11:34 → UNDOADMIN 16:18 → JD.MS 16:18 → UNDOADMIN 19:20 → JD.MS 19:20
PROVIDERS: ADMIT Internal Medicine; ATTEND Internal Medicine
PROC: 0QS736Z Reposition Left Upper Femur with Intramedullary Internal Fixation Device, Percutaneous Approach (ICD-10-PCS; principal; 2021-03-29)
DX: S72.002A Fracture of unspecified part of neck of left femur, initial encounter for closed fracture (principal); S72.142A Displaced intertrochanteric fracture of left femur, initial encounter for closed fracture; E83.42 Hypomagnesemia; E66.9 Obesity, unspecified; R91.1 Solitary pulmonary nodule; J42 Unspecified chronic bronchitis; J44.9 Chronic obstructive pulmonary disease, unspecified; E78.5 Hyperlipidemia, unspecified; I10 Essential (primary) hypertension; I71.2 Thoracic aortic aneurysm, without rupture; Z20.822 Contact with and (suspected) exposure to COVID-19; H91.90 Unspecified hearing loss, unspecified ear; E78.00 Pure hypercholesterolemia, unspecified; F17.210 Nicotine dependence, cigarettes, uncomplicated; F41.9 Anxiety disorder, unspecified; I71.4 Abdominal aortic aneurysm, without rupture; F32.9 Major depressive disorder, single episode, unspecified; E11.9 Type 2 diabetes mellitus without complications; Z68.37 Body mass index [BMI] 37.0-37.9, adult; Z79.82 Long term (current) use of aspirin; Z79.52 Long term (current) use of systemic steroids; Z79.84 Long term (current) use of oral hypoglycemic drugs; Z79.899 Other long term (current) drug therapy; Z90.49 Acquired absence of other specified parts of digestive tract; W17.89XA Other fall from one level to another, initial encounter
CPT/HCPCS: 36415; 71260; 72131; 73552; 73590; 74177; 80053; 82150; 85025; 93005; 96374; 96375; 96376; 99285; J1170 ×2; J3010; J7120; Q9967 ×2; U0002; 01230; 76000; 76000-26; 82947; 83735; 87081; 87641; 94640; 94761; 97110-GP; 97116-GP; 97161-GP; 97162-GP; A9270-GY; C1713; J0690; J1644; J1815-GY; J1885; J2250; J2270; J2370; J2405; J2704; J3475; J3490; J7620-GY

== ENCOUNTER 2021-07-11 20:40 | Inpatient (IN) | payer MEDICARE, MEDICAID ==
[2021-07-11] MEDS ORDERED: methylPREDNISolone Sodium Succinate 125 MG/2 ML SDV IVPUSH PRN (21:10)
[2021-07-11] MEDS ORDERED: EPINEPHrine 1 MG/ML SDV IM PRN (21:10)
[2021-07-11] MEDS ORDERED: Famotidine 20 MG/2 ML SDV IVPUSH PRN (21:10)
[2021-07-11] MEDS ORDERED: diphenhydrAMINE 50 MG/ML SDV IVPUSH PRN (21:10)
[2021-07-11] MEDS ORDERED: Sodium Chloride 0.9% 10 ML Syringe FLUSH SCH (21:15)
[2021-07-11] MEDS ORDERED: Sodium Chloride 0.9% 1,000 ML IV ONE (21:19)
[2021-07-11] MEDS ORDERED: REMDESIVIR 200 MG in Sodium Chloride 0.9% 250 ML IV ONE (22:41)
[2021-07-11] MEDS ORDERED: Dexamethasone 6 MG TABLET PO ONE (22:41)
[2021-07-11] MEDS ORDERED: traMADol 50 MG Tab PO ONE (22:52)
[2021-07-11] MEDS ORDERED: Acetaminophen 325 MG Tab PO PRN (23:12)
[2021-07-11] MEDS ORDERED: Albuterol 6.7 GM Inhaler INH PRN (23:17)
[2021-07-11] MEDS ORDERED: tiZANidine 4 MG Tab PO PRN (23:17)
[2021-07-12] MEDS ORDERED: REMDESIVIR 200 MG in Sodium Chloride 0.9% 250 ML IV ONE ×2 (01:13→01:30)
[2021-07-12] MEDS ORDERED: Sodium Chloride 0.9% 250 ML ONE (01:25)
[2021-07-12] MEDS: Pantoprazole 40 MG Tab.CR PO SCH (05:44)
[2021-07-12] MEDS: Insulin Glargine,Hum.Rec.Anlog 100 UNIT/ML 3 ML Pen SUBCUT SCH ×2 (08:09→09:12)
[2021-07-12] MEDS: Enoxaparin 40 MG/0.4 ML Syringe SUBCUT SCH ×2 (08:10→20:18)
[2021-07-12] MEDS: DULoxetine 30 MG Cap PO SCH (08:12)
[2021-07-12] MEDS: guaiFENesin/Dextromethorphan 100-10 MG/5 ML Soln 5 ML Cup PO SCH ×2 (08:12→20:18)
[2021-07-12] MEDS: Sennosides 8.6 MG Tab PO SCH (08:12)
[2021-07-12] MEDS: Dexamethasone 4 MG Tab PO SCH (08:12)
[2021-07-12] MEDS: Nicotine 14 MG/24 Hr Patch TRDERM SCH (08:13)
[2021-07-12] MEDS: Insulin Lispro 100 Unit/ML 3 ML KwikPen SUBCUT SCH ×4 (08:59→20:25)
[2021-07-12] MEDS ORDERED: Non-Formulary Medication 1 Each (Omeprazole 20 MG Capsule.Dr) PO SCH (09:00)
[2021-07-12] MEDS: Acetaminophen/HYDROcodone 325-10 MG Tab PO PRN ×3 (13:56→22:19)
[2021-07-12] MEDS ORDERED: REMDESIVIR 100 MG in Sodium Chloride 0.9% 100 ML IV SCH (22:00)
[2021-07-12] MEDS: REMDESIVIR 100 MG in Sodium Chloride 0.9% 250 ML IV SCH (22:18)
[2021-07-13] MEDS: Pantoprazole 40 MG Tab.CR PO SCH (06:40)
[2021-07-13] MEDS ORDERED: Insulin Glargine,Hum.Rec.Anlog 100 UNIT/ML 3 ML Pen SUBCUT SCH (07:00)
[2021-07-13] MEDS: Insulin Lispro 100 Unit/ML 3 ML KwikPen SUBCUT SCH ×4 (07:56→21:54)
[2021-07-13] MEDS: guaiFENesin/Dextromethorphan 100-10 MG/5 ML Soln 5 ML Cup PO SCH ×2 (08:50→20:30)
[2021-07-13] MEDS: Sennosides 8.6 MG Tab PO SCH (08:51)
[2021-07-13] MEDS: Dexamethasone 4 MG Tab PO SCH (08:51)
[2021-07-13] MEDS: Nicotine 14 MG/24 Hr Patch TRDERM SCH (08:52)
[2021-07-13] MEDS: DULoxetine 30 MG Cap PO SCH (08:52)
[2021-07-13] MEDS: Enoxaparin 40 MG/0.4 ML Syringe SUBCUT SCH ×2 (08:53→20:30)
[2021-07-13] MEDS: Insulin Glargine,Hum.Rec.Anlog 100 UNIT/ML 3 ML Pen SUBCUT SCH (08:53)
[2021-07-13] MEDS: Acetaminophen/HYDROcodone 325-10 MG Tab PO PRN ×3 (09:05→20:33)
[2021-07-13] MEDS: REMDESIVIR 100 MG in Sodium Chloride 0.9% 250 ML IV SCH (21:55)
[2021-07-14] MEDS: Pantoprazole 40 MG Tab.CR PO SCH (05:53)
[2021-07-14] MEDS: Acetaminophen/HYDROcodone 325-10 MG Tab PO PRN ×2 (05:54→11:59)
[2021-07-14] MEDS: Insulin Lispro 100 Unit/ML 3 ML KwikPen SUBCUT SCH ×4 (07:24→22:16)
[2021-07-14] MEDS: Enoxaparin 40 MG/0.4 ML Syringe SUBCUT SCH ×2 (08:25→21:05)
[2021-07-14] MEDS: guaiFENesin/Dextromethorphan 100-10 MG/5 ML Soln 5 ML Cup PO SCH ×2 (08:26→21:05)
[2021-07-14] MEDS: Insulin Glargine,Hum.Rec.Anlog 100 UNIT/ML 3 ML Pen SUBCUT SCH (08:26)
[2021-07-14] MEDS: Sennosides 8.6 MG Tab PO SCH (08:26)
[2021-07-14] MEDS: Nicotine 14 MG/24 Hr Patch TRDERM SCH (08:26)
[2021-07-14] MEDS: DULoxetine 30 MG Cap PO SCH (08:26)
[2021-07-14] MEDS: Lisinopril 5 MG Tab PO SCH (08:27)
[2021-07-14] MEDS: Dexamethasone 4 MG Tab PO SCH (08:27)
[2021-07-14] MEDS ORDERED: traZODone 50 MG Tab PO PRN (17:46)
[2021-07-14] MEDS: REMDESIVIR 100 MG in Sodium Chloride 0.9% 250 ML IV SCH (21:05)
[2021-07-15] MEDS: Acetaminophen/HYDROcodone 325-10 MG Tab PO PRN ×3 (04:47→22:08)
[2021-07-15] MEDS: Pantoprazole 40 MG Tab.CR PO SCH (06:01)
[2021-07-15] MEDS: Dexamethasone 4 MG Tab PO SCH (08:03)
[2021-07-15] MEDS: Sennosides 8.6 MG Tab PO SCH (08:03)
[2021-07-15] MEDS: Lisinopril 5 MG Tab PO SCH (08:04)
[2021-07-15] MEDS: Enoxaparin 40 MG/0.4 ML Syringe SUBCUT SCH ×2 (08:05→22:08)
[2021-07-15] MEDS: Nicotine 14 MG/24 Hr Patch TRDERM SCH (08:05)
[2021-07-15] MEDS: DULoxetine 30 MG Cap PO SCH (08:05)
[2021-07-15] MEDS: guaiFENesin/Dextromethorphan 100-10 MG/5 ML Soln 5 ML Cup PO SCH ×2 (08:05→22:08)
[2021-07-15] MEDS: Insulin Glargine,Hum.Rec.Anlog 100 UNIT/ML 3 ML Pen SUBCUT SCH (08:08)
[2021-07-15] MEDS: Insulin Lispro 100 Unit/ML 3 ML KwikPen SUBCUT SCH ×4 (08:09→22:09)
[2021-07-15] MEDS ORDERED: Potassium Chloride 20 MEQ Tab.ER PO ONE (08:30)
[2021-07-15] MEDS: REMDESIVIR 100 MG in Sodium Chloride 0.9% 250 ML IV SCH (22:08)
[2021-07-16] MEDS: Acetaminophen/HYDROcodone 325-10 MG Tab PO PRN ×2 (06:16→10:08)
[2021-07-16] MEDS: Pantoprazole 40 MG Tab.CR PO SCH (06:17)
[2021-07-16] MEDS: Insulin Lispro 100 Unit/ML 3 ML KwikPen SUBCUT SCH ×2 (06:43→12:24)
[2021-07-16] MEDS: guaiFENesin/Dextromethorphan 100-10 MG/5 ML Soln 5 ML Cup PO SCH (09:07)
[2021-07-16] MEDS: DULoxetine 30 MG Cap PO SCH (09:08)
[2021-07-16] MEDS: Dexamethasone 4 MG Tab PO SCH (09:08)
[2021-07-16] MEDS: Enoxaparin 40 MG/0.4 ML Syringe SUBCUT SCH (09:08)
[2021-07-16] MEDS: Sennosides 8.6 MG Tab PO SCH (09:09)
[2021-07-16] MEDS: Lisinopril 5 MG Tab PO SCH (09:09)
[2021-07-16] MEDS: Insulin Glargine,Hum.Rec.Anlog 100 UNIT/ML 3 ML Pen SUBCUT SCH (09:10)
[2021-07-16] MEDS: Nicotine 14 MG/24 Hr Patch TRDERM SCH (09:11)
[2021-07-16 11:38] VITALS: BP 119/66; PULSE 61
== END 2021-07-16 13:21 | DRG 177 ==
LOC: JD.ED 20:40 → JD.ICU 23:11 → JD.MS 07-13 11:17
PROVIDERS: ADMIT Internal Medicine; ATTEND Internal Medicine
PROC: 8E0ZXY6 Isolation (ICD-10-PCS; principal; 2021-07-11)
PROC: XW033E5 Introduction of Remdesivir Anti-infective into Peripheral Vein, Percutaneous Approach, New Technology Group 5 (ICD-10-PCS; 2021-07-11)
PROC: 3E0333Z Introduction of Anti-inflammatory into Peripheral Vein, Percutaneous Approach (ICD-10-PCS; 2021-07-11)
DX: U07.1 COVID-19 (principal); J96.01 Acute respiratory failure with hypoxia; Z87.891 Personal history of nicotine dependence; H91.90 Unspecified hearing loss, unspecified ear; E78.00 Pure hypercholesterolemia, unspecified; I71.4 Abdominal aortic aneurysm, without rupture; J12.82 Pneumonia due to coronavirus disease 2019; M84.459A Pathological fracture, hip, unspecified, initial encounter for fracture; G47.30 Sleep apnea, unspecified; E11.65 Type 2 diabetes mellitus with hyperglycemia; E78.5 Hyperlipidemia, unspecified; Z79.84 Long term (current) use of oral hypoglycemic drugs; I10 Essential (primary) hypertension; J44.9 Chronic obstructive pulmonary disease, unspecified; K21.9 Gastro-esophageal reflux disease without esophagitis; F41.9 Anxiety disorder, unspecified; F32.A Depression, unspecified; F17.210 Nicotine dependence, cigarettes, uncomplicated; E66.9 Obesity, unspecified; Z68.30 Body mass index [BMI] 30.0-30.9, adult; Z79.899 Other long term (current) drug therapy; Z79.52 Long term (current) use of systemic steroids; Z97.2 Presence of dental prosthetic device (complete) (partial); Z98.890 Other specified postprocedural states; Z90.89 Acquired absence of other organs; Z23 Encounter for immunization
CPT/HCPCS: 36415; 71045; 80053; 81001; 83605; 83880; 84484; 85007; 85027; 85379; 86140; 87040 ×2; 93005; 99285; J7030; M0243; Q0243; 82947; 85025; 94640; 94760; 94761; 94762; 97116-GP; 97162-GP; 97530-GP; A9270-GY; J1650; J1815; J7050; J8540

== ENCOUNTER 2023-03-22 12:20 | Day surgery (SDC) | payer MEDICARE, MEDICAID ==
[~2023-03-22 12:20] MED LIST: Lactated Ringers 1,000 ML IV SCH; Sodium Chloride 0.9% 10 ML Syringe FLUSH PRN; Sodium Chloride 0.9% 10 ML Syringe FLUSH SCH
[2023-03-22] MEDS ORDERED: Albuterol 0.083% 2.5 MG/3 ML Neb Soln NEB SCH (13:07)
[2023-03-22] MEDS ORDERED: Midazolam 1 MG/ML 2 ML SDV ONE (13:24)
[2023-03-22] MEDS ORDERED: fentaNYL 100 MCG/2 ML SDV ONE (13:24)
[2023-03-22] MEDS ORDERED: Propofol 200 MG/20 ML SDV ONE (13:25)
[2023-03-22 16:19] VITALS: BP 131/82; PULSE 72
== END 2023-03-22 15:45 | disposition home or self-care (01) ==
LOC: JD.SDS 12:20
PROVIDERS: ATTEND Surgery
DX: Z12.11 Encounter for screening for malignant neoplasm of colon (principal); D12.5 Benign neoplasm of sigmoid colon; K29.70 Gastritis, unspecified, without bleeding; K22.89 Other specified disease of esophagus; K29.80 Duodenitis without bleeding; K20.90 Esophagitis, unspecified without bleeding; K31.89 Other diseases of stomach and duodenum; I49.49 Other premature depolarization; R19.8 Other specified symptoms and signs involving the digestive system and abdomen; E11.9 Type 2 diabetes mellitus without complications; G47.33 Obstructive sleep apnea (adult) (pediatric); F41.1 Generalized anxiety disorder; F33.1 Major depressive disorder, recurrent, moderate; G20 Parkinson's disease; F17.210 Nicotine dependence, cigarettes, uncomplicated; Z79.1 Long term (current) use of non-steroidal anti-inflammatories (NSAID); Z79.899 Other long term (current) drug therapy; Z79.84 Long term (current) use of oral hypoglycemic drugs; Z88.8 Allergy status to other drugs, medicaments and biological substances
CPT/HCPCS: 43239; 45385; 88305; J2250; J2704; J3010; J7120; 00813; J7620-GY

== ENCOUNTER 2023-06-09 17:36 | Emergency (ER) | payer OTHER, MEDICARE, MEDICAID ==
[2023-06-09 18:33] LABS: ALBUMIN 3.7 g/dl (3.4-5.0); ANION GAP 15.2 (5-15); BILIRUBIN TOTAL 0.4 mg/dL (0.2-1.0); BUN/CREATININE RATIO 14.5 (14-18); CALCIUM 8.9 mg/dL (8.5-10.1); CREATININE 1.1 mg/dL (0.7-1.3); EST CRCL DRUG DOSING (CG) 67.84 mL/min; MAGNESIUM 1.8 mg/dL (1.8-2.4); POTASSIUM,K 4.2 mEq/L (3.5-5.1); PROTEIN TOTAL,TP 7.3 g/dl (6.4-8.2)
[2023-06-09 18:57] LABS: BASOPHILS ABSOLUTE AUTO 0.1 K/mm3 (0.0-0.2); BASOPHILS PERCENT AUTO 0.6 % (0.0-1.0); EOSINOPHILS ABSOLUTE AUTO 0.2 K/mm3 (0.0-0.4); EOSINOPHILS PERCENT AUTO 1.5 % (0.0-6.0); HEMATOCRIT 46.2 % (42.0-52.0); HEMOGLOBIN 15.9 gm/dl (14.0-18.0); IMMATURE GRAN ABSOLUTE AUTO 0.03 K/mm3 (0.00-0.05); IMMATURE GRAN PERCENT AUTO 0.3 % (0.0-0.4); LYMPHOCYTES PERCENT AUTO 35.7 % (24.0-44.0); MEAN CORPUSCULAR HEMOGLOBIN 33.8 pg (28.0-32.0); MEAN CORPUSCULAR HGB CONC 34.4 g/dl (32.0-36.0); MEAN CORPUSCULAR VOLUME 98.3 fl (83.0-99.0); MEAN PLATELET VOLUME 9.2 fl (9.4-12.4); MONOCYTES ABSOLUTE AUTO 0.7 K/mm3 (0.0-0.8); MONOCYTES PERCENT AUTO 6.5 % (0.0-8.0); NEUTROPHILS ABSOLUTE AUTO 6.2 K/mm3 (1.8-7.7); NEUTROPHILS PERCENT AUTO 55.4 % (41.0-71.0); PLATELET COUNT,PLT 261 K/mm3 (150-400); WHITE BLOOD CELL COUNT,WBC 11.22 K/mm3 (3.9-11.3)
[2023-06-09 21:36] LABS: APPEARANCE,URINE CLEAR (Clear); BILIRUBIN,URINE NEGATIVE (Negative); COLOR,URINE YELLOW (Yellow); GLUCOSE,URINE NEGATIVE (Negative); KETONES,URINE TRACE (Negative); LEUKOCYTE ESTERASE,URINE TRACE (Negative); NITRITE,URINE NEGATIVE (Negative); OCCULT BLOOD,URINE NEGATIVE (Negative); PH,URINE 5.5 (5.0-8.0); PROTEIN,URINE NEGATIVE (Negative)
[2023-06-09 21:46] LABS: BARBITURATE SCREEN,URINE NEGATIVE (CUTOFF=200); BENZODIAZEPINES SCREEN,URINE NEGATIVE (CUTOFF=150); BUPRENORPHINE SCREEN,URINE NEGATIVE (CUTOFF=10); METHADONE SCREEN, URINE NEGATIVE (CUT0FF=200); METHAMPHETAMINES SCREEN, URINE NEGATIVE (CUTOFF=500); OXYCODONE SCREEN,URINE NEGATIVE (CUT0FF=100); THC SCREEN,URINE 20 NG/ML NEGATIVE (CUTOFF=50)
[2023-06-09 22:00] LABS: AMPHETAMINES SCREEN, URINE NEGATIVE (CUTOFF=500)
[2023-06-09 22:03] LABS: BACTERIA,URINE FEW /hpf (FEW); MUCUS,URINE MODERATE /hpf (FEW); RBC,URINE 0-5 /hpf (0-5); SQUAMOUS EPITHELIAL CELLS,UR 0-5 /hpf (0-5)
[2023-06-09 22:24] VITALS: BP 140/65; PULSE 85
== END 2023-06-09 22:29 | disposition home or self-care (01) ==
LOC: JD.ED 17:36
DX: M25.511 Pain in right shoulder (principal); I10 Essential (primary) hypertension; K21.9 Gastro-esophageal reflux disease without esophagitis; E78.00 Pure hypercholesterolemia, unspecified; E11.9 Type 2 diabetes mellitus without complications; E66.9 Obesity, unspecified; F17.200 Nicotine dependence, unspecified, uncomplicated; Z86.16 Personal history of COVID-19; Z90.49 Acquired absence of other specified parts of digestive tract; Z88.8 Allergy status to other drugs, medicaments and biological substances; Z79.899 Other long term (current) drug therapy; Z79.84 Long term (current) use of oral hypoglycemic drugs; Z68.32 Body mass index [BMI] 32.0-32.9, adult; V89.2XXA Person injured in unspecified motor-vehicle accident, traffic, initial encounter
CPT/HCPCS: 36415; 70450; 70450-26; 71045; 71045-26; 72125; 72125-26; 72170; 72170-26; 73030-26-RT; 73030-RT; 80053; 80306; 81001; 83735; 85025; 99283; 99285

== ENCOUNTER 2023-11-25 20:37 | Inpatient (IN) | payer MEDICARE, MEDICAID ==
[2023-11-25] MEDS: Ketorolac 30 MG/ML SDV IVPUSH ONE (21:04)
[2023-11-25] MEDS: Sodium Chloride 0.9% 1,000 ML ONE (22:38)
[2023-11-25] MEDS ORDERED: Acetaminophen/HYDROcodone 325-10 MG Tab PO PRN (23:30)
[2023-11-25] MEDS ORDERED: Albuterol 6.7 GM Inhaler INH PRN (23:33)
[2023-11-26] MEDS: Acetaminophen/HYDROcodone 325-10 MG Tab PO PRN (00:35)
[2023-11-26 09:30] LABS: HEMATOCRIT 42.2 % (42.0-52.0); MEAN CORPUSCULAR HEMOGLOBIN 33.1 pg (28.0-32.0); MEAN CORPUSCULAR HGB CONC 34.1 g/dl (32.0-36.0); MEAN PLATELET VOLUME 9.4 fl (9.4-12.4); PLATELET COUNT,PLT 201 K/mm3 (150-400); RED BLOOD CELL COUNT 4.35 M/mm3 (4.52-5.90); WHITE BLOOD CELL COUNT,WBC 12.73 K/mm3 (3.9-11.3)
[2023-11-26 09:31] LABS: HEMOGLOBIN 14.4 gm/dl (14.0-18.0)
[2023-11-26 10:02] LABS: A/G RATIO 1.1 (1-2); ALBUMIN 3.5 g/dl (3.4-5.0); BILIRUBIN TOTAL 0.6 mg/dL (0.2-1.0); BUN/CREATININE RATIO 19.2 (14-18); CALCIUM 8.6 mg/dL (8.5-10.1); CREATININE 1.2 mg/dL (0.7-1.3); EST CRCL DRUG DOSING (CG) 61.37 mL/min; MAGNESIUM 1.6 mg/dL (1.8-2.4); PHOSPHORUS 3.8 mg/dL (2.6-4.7); PROTEIN TOTAL,TP 6.7 g/dl (6.4-8.2); TSH 1.636 uIU/mL (0.358-3.74)
[2023-11-26] MEDS ORDERED: Sennosides 8.6 MG Tab PO PRN (12:17)
[2023-11-26] MEDS ORDERED: Albuterol 6.7 GM Inhaler INH PRN (12:17)
[2023-11-26 12:35] LABS: APPEARANCE,URINE CLEAR (Clear); BILIRUBIN,URINE 1+ (Negative); COLOR,URINE DARK YELLOW (Yellow); GLUCOSE,URINE TRACE (Negative); KETONES,URINE TRACE (Negative); LEUKOCYTE ESTERASE,URINE NEGATIVE (Negative); NITRITE,URINE NEGATIVE (Negative); OCCULT BLOOD,URINE NEGATIVE (Negative); PH,URINE 5.5 (5.0-8.0); PROTEIN,URINE NEGATIVE (Negative); UROBILINOGEN,URINE 0.2 (0.2-1.0)
[2023-11-26 12:43] LABS: BACTERIA,URINE FEW /hpf (FEW); EPITHELIAL CELLS,URINE 0-5 /hpf (0-5); MUCUS,URINE MODERATE /hpf (FEW); RBC,URINE 0-5 /hpf (0-5); WBC,URINE 0-5 /hpf (0-5)
[2023-11-26] MEDS: Lidocaine 4% 1 each Patch TOP SCH (13:24)
[2023-11-26] MEDS: Nicotine 14 MG/24 Hr Patch TRDERM SCH (13:24)
[2023-11-26] MEDS: Carbidopa/Levodopa 25-100 MG Tab PO SCH (13:25)
[2023-11-26] MEDS ORDERED: IPRATROPIUM BROMIDE TOP SCH (15:00)
[2023-11-26] MEDS: HYDROmorphone 1 MG/ML Syringe IVPUSH PRN (15:44)
[2023-11-26] MEDS ORDERED: Aspirin 325 MG Tab.EC PO SCH (17:00)
[2023-11-26] MEDS: Cyclobenzaprine 10 MG Tab PO PRN (18:28)
[2023-11-26] MEDS: Magnesium Oxide 400 MG Tab PO ONE (18:28)
[2023-11-26] MEDS: Trolamine Salicylate/Aloe Vera 10% Crm 85 GM Tube TOP PRN (18:29)
[2023-11-26] MEDS: Sennosides/Docusate Sodium 50-8.6 MG Tab PO SCH (20:13)
[2023-11-26] MEDS: atorvaSTATin 20 MG Tab PO SCH (20:14)
[2023-11-26] MEDS: traMADol 50 MG Tab PO SCH (20:15)
[2023-11-26] MEDS: Fluticasone NASAL Spray 16 GM Bottle NAS SCH (20:17)
[2023-11-27 06:59] LABS: HEMOGLOBIN A1C 6.9 %
[2023-11-27] MEDS: DULoxetine 30 MG Cap PO SCH (08:06)
[2023-11-27] MEDS: Lisinopril 5 MG Tab PO SCH (08:06)
[2023-11-27] MEDS: Meloxicam 7.5 MG Tab PO SCH (08:07)
[2023-11-27] MEDS: Pantoprazole 40 MG Tab.CR PO SCH (08:12)
[2023-11-27] MEDS: Magnesium Oxide 400 MG Tab PO SCH (08:12)
[2023-11-27] MEDS: Finasteride 5 MG Tab PO SCH (08:12)
[2023-11-27] MEDS: Insulin Lispro 100 Unit/ML 3 ML KwikPen SUBCUT SCH (17:17)
[2023-11-28 06:25] LABS: HEMATOCRIT 43.6 % (42.0-52.0); HEMOGLOBIN 14.5 gm/dl (14.0-18.0); MEAN CORPUSCULAR HEMOGLOBIN 32.4 pg (28.0-32.0); MEAN CORPUSCULAR HGB CONC 33.3 g/dl (32.0-36.0); MEAN CORPUSCULAR VOLUME 97.3 fl (83.0-99.0); MEAN PLATELET VOLUME 9.6 fl (9.4-12.4); PLATELET COUNT,PLT 199 K/mm3 (150-400); RED BLOOD CELL COUNT 4.48 M/mm3 (4.52-5.90); WHITE BLOOD CELL COUNT,WBC 11.56 K/mm3 (3.9-11.3)
[2023-11-28 06:37] LABS: CALCIUM 9.6 mg/dL (8.5-10.1); EST CRCL DRUG DOSING (CG) 73.65 mL/min
[2023-11-28] MEDS ORDERED: Acetaminophen 325 MG Tab PO PRN (10:40)
[2023-11-28] MEDS ORDERED: Sennosides 8.6 MG Tab PO PRN (10:41)
[2023-11-28] MEDS: Ketorolac 15 MG/ML SDV IVPUSH PRN (11:56)
[2023-11-28] MEDS: Insulin Glargine,Human Rec. Analog 100 Units/ML 3 ML Pen SUBCUT SCH (21:13)
[2023-11-28] MEDS: Albuterol 6.7 GM Inhaler INH PRN (21:22)
[2023-11-30] MEDS: LORazepam 2 MG/ML SDV ONE (01:55)
[2023-11-30] MEDS: LORazepam 2 MG/ML SDV IVPUSH PRN (01:57)
[2023-12-01 05:05] LABS: BASOPHILS ABSOLUTE AUTO 0.1 K/mm3 (0.0-0.2); BASOPHILS PERCENT AUTO 0.3 % (0.0-1.0); EOSINOPHILS ABSOLUTE AUTO 0.2 K/mm3 (0.0-0.4); EOSINOPHILS PERCENT AUTO 1.2 % (0.0-6.0); HEMATOCRIT 40.7 % (42.0-52.0); HEMOGLOBIN 13.6 gm/dl (14.0-18.0); IMMATURE GRAN ABSOLUTE AUTO 0.09 K/mm3 (0.00-0.05); IMMATURE GRAN PERCENT AUTO 0.5 % (0.0-0.4); MEAN CORPUSCULAR HEMOGLOBIN 33.1 pg (28.0-32.0); MEAN CORPUSCULAR HGB CONC 33.4 g/dl (32.0-36.0); MEAN PLATELET VOLUME 9.9 fl (9.4-12.4); MONOCYTES ABSOLUTE AUTO 1.2 K/mm3 (0.0-0.8); MONOCYTES PERCENT AUTO 6.1 % (0.0-8.0); NEUTROPHILS ABSOLUTE AUTO 15.3 K/mm3 (1.8-7.7); NEUTROPHILS PERCENT AUTO 76.9 % (41.0-71.0); PLATELET COUNT,PLT 217 K/mm3 (150-400); RED BLOOD CELL COUNT 4.11 M/mm3 (4.52-5.90); WHITE BLOOD CELL COUNT,WBC 19.86 K/mm3 (3.9-11.3)
[2023-12-01 05:45] LABS: ANION GAP 11.7 (5-15); CALCIUM 8.9 mg/dL (8.5-10.1); EST CRCL DRUG DOSING (CG) 73.65 mL/min; MAGNESIUM 1.9 mg/dL (1.8-2.4); POTASSIUM,K 3.7 mEq/L (3.5-5.1)
[2023-12-01 10:55] LABS: APPEARANCE,URINE SLT CLOUDY (Clear); BILIRUBIN,URINE 1+ (Negative); COLOR,URINE DARK YELLOW (Yellow); GLUCOSE,URINE TRACE (Negative); KETONES,URINE TRACE (Negative); LEUKOCYTE ESTERASE,URINE TRACE (Negative); NITRITE,URINE NEGATIVE (Negative); OCCULT BLOOD,URINE 3+ (Negative); PH,URINE 5.5 (5.0-8.0); PROTEIN,URINE 2+ (Negative)
[2023-12-01 11:03] LABS: BACTERIA,URINE MODERATE /hpf (FEW); MUCUS,URINE MANY /hpf (FEW); RBC,URINE 50-75 /hpf (0-5)
[2023-12-01] MEDS: cefTRIAXone 2 GM in Sodium Chloride 0.9% 100 ML IV SCH (12:33)
[2023-12-01] MEDS ORDERED: Azithromycin 500 MG in Sodium Chloride 0.9% 250 ML IV SCH (12:45)
[2023-12-01] MEDS ORDERED: oxyCODONE 5 MG Tab PO PRN (14:25)
[2023-12-01] MEDS: Azithromycin 500 MG Vial ONE (14:53)
[2023-12-01 16:57] VITALS: PULSE 80
[2023-12-01 20:29] VITALS: BP 123/80
[2023-12-02] MEDS ORDERED: Piperacillin/Tazobactam 4.5 GM in Sodium Chloride 0.9% 100 ML IV ONE (00:18)
== END 2023-12-01 20:12 | disposition home or self-care (01) | DRG 183 ==
LOC: JD.ED 20:37 → JD.MS 22:39 → OBSVTOIN 11-26 10:13 → JD.ICU 12-01 15:38
PROVIDERS: ADMIT Internal Medicine; ATTEND Internal Medicine
DX: S22.41XA Multiple fractures of ribs, right side, initial encounter for closed fracture (principal); J96.01 Acute respiratory failure with hypoxia; S27.1XXA Traumatic hemothorax, initial encounter; S27.0XXA Traumatic pneumothorax, initial encounter; J98.11 Atelectasis; N39.0 Urinary tract infection, site not specified; J44.9 Chronic obstructive pulmonary disease, unspecified; E11.9 Type 2 diabetes mellitus without complications; R13.10 Dysphagia, unspecified; K21.9 Gastro-esophageal reflux disease without esophagitis; F41.9 Anxiety disorder, unspecified; F32.A Depression, unspecified; E78.5 Hyperlipidemia, unspecified; G47.33 Obstructive sleep apnea (adult) (pediatric); E66.9 Obesity, unspecified; F17.210 Nicotine dependence, cigarettes, uncomplicated; R33.9 Retention of urine, unspecified; G20.A1 Parkinson's disease without dyskinesia, without mention of fluctuations; Z88.8 Allergy status to other drugs, medicaments and biological substances; Z86.16 Personal history of COVID-19; Z68.32 Body mass index [BMI] 32.0-32.9, adult; Z90.49 Acquired absence of other specified parts of digestive tract; W18.30XA Fall on same level, unspecified, initial encounter; Y92.89 Other specified places as the place of occurrence of the external cause
CPT/HCPCS: 36415; 51701; 51702; 51798; 70450; 70450-26; 71046; 71046-26; 71250; 71250-26; 73060-26-RT; 73060-RT; 73080-26-RT; 73080-RT; 80048; 80053; 81001; 82947; 83036; 83735; 84100; 84443; 85025; 85027; 87086; 87088; 87186; 92610-GN; 94640; 94761; 94762; 96374; 97110-GP; 97116-GP; 97161-GP; 99284; 99285-25; A9270-GY; C1758; G0378; J0696; J1170; J1815; J1815-GY; J1885; J2060; J3490; U0002

== ENCOUNTER 2023-12-06 13:45 | Emergency (ER) | payer MEDICARE, MEDICAID ==
[2023-12-06] MEDS ORDERED: Sodium Chloride 0.9% 100 ML IV SCH (14:15)
[2023-12-06] MEDS: Iopamidol 755 Mg/ML 100 ML Bottle IVPUSH ONE (14:25)
[2023-12-06 14:48] LABS: BASOPHILS ABSOLUTE AUTO 0.1 K/mm3 (0.0-0.2); BASOPHILS PERCENT AUTO 0.5 % (0.0-1.0); EOSINOPHILS ABSOLUTE AUTO 0.3 K/mm3 (0.0-0.4); EOSINOPHILS PERCENT AUTO 3.2 % (0.0-6.0); HEMATOCRIT 36.2 % (42.0-52.0); IMMATURE GRAN ABSOLUTE AUTO 0.12 K/mm3 (0.00-0.05); IMMATURE GRAN PERCENT AUTO 1.2 % (0.0-0.4); LYMPHOCYTES ABSOLUTE AUTO 1.9 K/mm3 (1.0-4.8); LYMPHOCYTES PERCENT AUTO 18.4 % (24.0-44.0); MEAN CORPUSCULAR HEMOGLOBIN 32.5 pg (28.0-32.0); MEAN CORPUSCULAR HGB CONC 33.1 g/dl (32.0-36.0); MEAN CORPUSCULAR VOLUME 98.1 fl (83.0-99.0); MONOCYTES ABSOLUTE AUTO 0.8 K/mm3 (0.0-0.8); MONOCYTES PERCENT AUTO 7.9 % (0.0-8.0); NEUTROPHILS ABSOLUTE AUTO 6.9 K/mm3 (1.8-7.7); NEUTROPHILS PERCENT AUTO 68.8 % (41.0-71.0); PLATELET COUNT,PLT 197 K/mm3 (150-400); RED BLOOD CELL COUNT 3.69 M/mm3 (4.52-5.90); WHITE BLOOD CELL COUNT,WBC 10.03 K/mm3 (3.9-11.3)
[2023-12-06 15:21] LABS: A/G RATIO 0.7 (1-2); ALBUMIN 2.3 g/dl (3.4-5.0); ANION GAP 9.3 (5-15); BILIRUBIN TOTAL 0.3 mg/dL (0.2-1.0); BUN/CREATININE RATIO 11.1 (14-18); C-REACTIVE PROTEIN 7.58 mg/dL (<0.30); CALCIUM 8.5 mg/dL (8.5-10.1); CREATININE 0.9 mg/dL (0.7-1.3); EST CRCL DRUG DOSING (CG) 81.83 mL/min; POTASSIUM,K 4.3 mEq/L (3.5-5.1); PROTEIN TOTAL,TP 5.8 g/dl (6.4-8.2)
[2023-12-06] MEDS ORDERED: Albuterol 6.7 GM Inhaler INH PRN (19:06)
[2023-12-06] MEDS: atorvaSTATin 20 MG Tab PO SCH (20:38)
[2023-12-06] MEDS: QUEtiapine 25 MG Tab PO SCH (20:38)
[2023-12-06] MEDS: traMADol 50 MG Tab PO SCH (20:38)
[2023-12-06] MEDS: Carbidopa/Levodopa 25-100 MG Tab PO SCH (20:39)
[2023-12-06] MEDS ORDERED: [UNRECOGNIZED DRUG - OTHER] PO SCH (21:00)
[2023-12-06] MEDS ORDERED: AMOXICILLIN PO SCH (21:00)
[2023-12-06] MEDS: Amoxicillin/Clavulanate K 600-42.9 MG/5 ML Susp 125 ML Bottle PO SCH (21:51)
[2023-12-06] MEDS: metFORMIN 500 MG Tab PO SCH (21:56)
[2023-12-07] MEDS: Acetaminophen/HYDROcodone 325-10 MG Tab PO PRN (04:36)
[2023-12-07] MEDS: Pantoprazole 40 MG Tab.CR PO SCH (06:19)
[2023-12-07] MEDS: Nicotine 7 MG/24 Hr Patch TRDERM SCH (08:45)
[2023-12-07] MEDS: Tamsulosin 0.4 MG Cap.ER PO SCH (08:49)
[2023-12-07] MEDS: Magnesium Oxide 400 MG Tab PO SCH (08:49)
[2023-12-07] MEDS: DULoxetine 30 MG Cap PO SCH (08:51)
[2023-12-07] MEDS: Acetaminophen 325 MG Tab PO PRN (08:52)
[2023-12-07] MEDS: Glimepiride 2 MG Tab PO SCH (08:53)
[2023-12-07] MEDS: Lisinopril 5 MG Tab PO SCH (08:54)
[2023-12-07] MEDS: Meloxicam 7.5 MG Tab PO SCH (08:54)
[2023-12-07] MEDS: Finasteride 5 MG Tab PO SCH (08:57)
[2023-12-07] MEDS: Aspirin 81 MG Tab.EC PO SCH (08:58)
[2023-12-07] MEDS: guaiFENesin/Dextromethorphan 100-10 MG/5 ML Soln 5 ML Cup PO SCH (09:59)
[2023-12-07 13:59] VITALS: BP 117/76; PULSE 84
== END 2023-12-07 14:20 ==
LOC: JD.ED 13:45
DX: S22.41XA Multiple fractures of ribs, right side, initial encounter for closed fracture (principal); J96.01 Acute respiratory failure with hypoxia; J42 Unspecified chronic bronchitis; G20.A1 Parkinson's disease without dyskinesia, without mention of fluctuations; I10 Essential (primary) hypertension; K21.9 Gastro-esophageal reflux disease without esophagitis; E66.9 Obesity, unspecified; E11.9 Type 2 diabetes mellitus without complications; Z88.8 Allergy status to other drugs, medicaments and biological substances; Z79.82 Long term (current) use of aspirin; Z79.84 Long term (current) use of oral hypoglycemic drugs; Z79.899 Other long term (current) drug therapy; Z86.16 Personal history of COVID-19; Z90.49 Acquired absence of other specified parts of digestive tract; Z87.891 Personal history of nicotine dependence; Z68.33 Body mass index [BMI] 33.0-33.9, adult; X58.XXXA Exposure to other specified factors, initial encounter
CPT/HCPCS: 36415; 71275; 80053; 85025; 86140; 93005; 99285; A9270; Q9967; 93010

== ENCOUNTER 2024-05-08 09:12 | Emergency (ER) | payer MEDICARE, MEDICAID ==
[2024-05-08 10:36] LABS: BASOPHILS PERCENT AUTO 0.2 % (0.0-1.0); EOSINOPHILS PERCENT AUTO 0.5 % (0.0-6.0); HEMATOCRIT 41.3 % (42.0-52.0); IMMATURE GRAN ABSOLUTE AUTO 0.02 K/mm3 (0.00-0.05); IMMATURE GRAN PERCENT AUTO 0.2 % (0.0-0.4); LYMPHOCYTES ABSOLUTE AUTO 1.9 K/mm3 (1.0-4.8); LYMPHOCYTES PERCENT AUTO 22.6 % (24.0-44.0); MEAN CORPUSCULAR HEMOGLOBIN 31.4 pg (28.0-32.0); MEAN CORPUSCULAR HGB CONC 33.2 g/dl (32.0-36.0); MEAN PLATELET VOLUME 8.9 fl (9.4-12.4); MONOCYTES ABSOLUTE AUTO 0.5 K/mm3 (0.0-0.8); MONOCYTES PERCENT AUTO 6.1 % (0.0-8.0); NEUTROPHILS PERCENT AUTO 70.4 % (41.0-71.0); PLATELET COUNT,PLT 212 K/mm3 (150-400); RED BLOOD CELL COUNT 4.37 M/mm3 (4.52-5.90); WHITE BLOOD CELL COUNT,WBC 8.46 K/mm3 (3.9-11.3)
[2024-05-08 10:41] LABS: HEMOGLOBIN 13.7 gm/dl (14.0-18.0); MEAN CORPUSCULAR VOLUME 94.5 fl (83.0-99.0)
[2024-05-08 10:56] LABS: A/G RATIO 1.1 (1-2); ALBUMIN 3.5 g/dl (3.4-5.0); ALKALINE PHOSPHATASE 101 U/L (46-116); ANION GAP 12.3 (5-15); ASPARTATE AMNIOTRANSFERASE,AST 15 U/L (15-37); BILIRUBIN TOTAL 0.6 mg/dL (0.2-1.0); BLOOD UREA NITROGEN,BUN 17 mg/dL (7-18); BUN/CREATININE RATIO 18.9 (14-18); CALCIUM 9.2 mg/dL (8.5-10.1); CARBON DIOXIDE,CO2 28 mEq/L (21-32); CHLORIDE,CL 103 mEq/L (98-107); CREATININE 0.9 mg/dL (0.7-1.3); ESTIMATED GFR 95 mL/min (>60); GLUCOSE RANDOM 67 mg/dL (70-99); POTASSIUM,K 4.3 mEq/L (3.5-5.1); PROTEIN TOTAL,TP 6.8 g/dl (6.4-8.2); SODIUM,NA 139 mEq/L (136-145)
[2024-05-08 11:29] LABS: ALANINE AMINOTRANSFERASE,ALT 10 U/L (16-63)
[2024-05-08 11:43] VITALS: BP 105/70; PULSE 88
== END 2024-05-08 12:22 ==
LOC: JD.ED 09:12
DX: M25.551 Pain in right hip (principal); I10 Essential (primary) hypertension; E78.00 Pure hypercholesterolemia, unspecified; E11.9 Type 2 diabetes mellitus without complications; J44.9 Chronic obstructive pulmonary disease, unspecified; K21.9 Gastro-esophageal reflux disease without esophagitis; E66.9 Obesity, unspecified; Z86.16 Personal history of COVID-19; Z90.49 Acquired absence of other specified parts of digestive tract; Z88.8 Allergy status to other drugs, medicaments and biological substances; Z79.51 Long term (current) use of inhaled steroids; Z79.84 Long term (current) use of oral hypoglycemic drugs; Z79.82 Long term (current) use of aspirin; Z79.891 Long term (current) use of opiate analgesic; Z79.899 Other long term (current) drug therapy; W19.XXXA Unspecified fall, initial encounter; Y92.129 Unspecified place in nursing home as the place of occurrence of the external cause
CPT/HCPCS: 36415; 70450; 70450-26; 72125; 72125-26; 73502-26-RT; 73502-RT; 80053; 85025; 99284; 99285

== ENCOUNTER 2024-06-01 09:53 | Emergency (ER) | payer MEDICARE, MEDICAID ==
[2024-06-01] MEDS: Sodium Chloride 0.9% 500 ML IV ONE (10:42)
[2024-06-01] MEDS: Sodium Chloride 0.9% 10 ML Syringe FLUSH PRN (10:42)
[2024-06-01] MEDS ORDERED: Sodium Chloride 0.9% 100 ML IV SCH (11:00)
[2024-06-01 11:07] LABS: BASOPHILS PERCENT AUTO 0.3 % (0.0-1.0); EOSINOPHILS PERCENT AUTO 0.1 % (0.0-6.0); HEMATOCRIT 41.3 % (42.0-52.0); HEMOGLOBIN 13.4 gm/dl (14.0-18.0); IMMATURE GRAN ABSOLUTE AUTO 0.04 K/mm3 (0.00-0.05); IMMATURE GRAN PERCENT AUTO 0.3 % (0.0-0.4); LYMPHOCYTES ABSOLUTE AUTO 1.7 K/mm3 (1.0-4.8); LYMPHOCYTES PERCENT AUTO 13.3 % (24.0-44.0); MEAN CORPUSCULAR HEMOGLOBIN 31.2 pg (28.0-32.0); MEAN CORPUSCULAR HGB CONC 32.4 g/dl (32.0-36.0); MEAN CORPUSCULAR VOLUME 96.3 fl (83.0-99.0); MEAN PLATELET VOLUME 9.3 fl (9.4-12.4); MONOCYTES ABSOLUTE AUTO 0.9 K/mm3 (0.0-0.8); PLATELET COUNT,PLT 210 K/mm3 (150-400); RED BLOOD CELL COUNT 4.29 M/mm3 (4.52-5.90); WHITE BLOOD CELL COUNT,WBC 12.66 K/mm3 (3.9-11.3)
[2024-06-01 11:21] LABS: INR 1.02; PROTHROMBIN TIME 10.8 SECONDS (9.7-12.0)
[2024-06-01 11:23] LABS: PTT,PARTIAL THROMBOPLSTIN TIME 28.8 SECONDS (21.7-31.4)
[2024-06-01 11:35] LABS: A/G RATIO 0.9 (1-2); ALANINE AMINOTRANSFERASE,ALT 23 U/L (16-63); ALBUMIN 3.5 g/dl (3.4-5.0); ALKALINE PHOSPHATASE 132 U/L (46-116); ANION GAP 14.1 (5-15); ASPARTATE AMNIOTRANSFERASE,AST 16 U/L (15-37); BILIRUBIN TOTAL 1.1 mg/dL (0.2-1.0); BLOOD UREA NITROGEN,BUN 19 mg/dL (7-18); BUN/CREATININE RATIO 21.1 (14-18); CALCIUM 9.2 mg/dL (8.5-10.1); CARBON DIOXIDE,CO2 29 mEq/L (21-32); CHLORIDE,CL 102 mEq/L (98-107); CREATININE 0.9 mg/dL (0.7-1.3); ESTIMATED GFR 95 mL/min (>60); GLUCOSE RANDOM 101 mg/dL (70-99); POTASSIUM,K 4.1 mEq/L (3.5-5.1); PROTEIN TOTAL,TP 7.4 g/dl (6.4-8.2); SODIUM,NA 141 mEq/L (136-145)
[2024-06-01 11:40] LABS: TROPONIN I HIGH SENSITIVITY < 4 pg/mL (<=76)
[2024-06-01 12:01] VITALS: BP 105/74; PULSE 72
[2024-06-01] MEDS: Iopamidol 755 Mg/ML 100 ML Bottle IVPUSH ONE (12:08)
[2024-06-01 12:09] LABS: APPEARANCE,URINE CLEAR (Clear); BILIRUBIN,URINE NEGATIVE (Negative); COLOR,URINE DARK YELLOW (Yellow); GLUCOSE,URINE NEGATIVE (Negative); KETONES,URINE TRACE (Negative); LEUKOCYTE ESTERASE,URINE TRACE (Negative); NITRITE,URINE NEGATIVE (Negative); OCCULT BLOOD,URINE NEGATIVE (Negative); PH,URINE 6.5 (5.0-8.0); PROTEIN,URINE NEGATIVE (Negative)
[2024-06-01 12:45] LABS: BACTERIA,URINE FEW /hpf (FEW); MUCUS,URINE NOT SEEN /hpf (FEW); RBC,URINE 0-5 /hpf (0-5); SQUAMOUS EPITHELIAL CELLS,UR 0-5 /hpf (0-5); WBC,URINE 0-5 /hpf (0-5)
[2024-06-01] MEDS: HYDROmorphone 0.5 MG/0.5 ML Syringe IVPUSH ONE (13:55)
== END 2024-06-01 14:00 ==
LOC: JD.ED 09:53
DX: S06.5X0A Traumatic subdural hemorrhage without loss of consciousness, initial encounter (principal); I10 Essential (primary) hypertension; E78.00 Pure hypercholesterolemia, unspecified; J44.9 Chronic obstructive pulmonary disease, unspecified; K21.9 Gastro-esophageal reflux disease without esophagitis; E11.9 Type 2 diabetes mellitus without complications; E66.9 Obesity, unspecified; Z86.16 Personal history of COVID-19; Z90.49 Acquired absence of other specified parts of digestive tract; Z88.8 Allergy status to other drugs, medicaments and biological substances; Z79.51 Long term (current) use of inhaled steroids; Z79.84 Long term (current) use of oral hypoglycemic drugs; Z79.82 Long term (current) use of aspirin; Z79.899 Other long term (current) drug therapy; W19.XXXA Unspecified fall, initial encounter; Y92.129 Unspecified place in nursing home as the place of occurrence of the external cause
CPT/HCPCS: 36415; 70450; 80053; 81001; 82947; 83605; 84484; 85025; 85610; 85730; 87040; 87428; 93005; 94762; 96361; 96374; 99285; J1171; J3490; J7030; Q9967